=== PATIENT | male | born 1960 | race Caucasian/White ===

== ENCOUNTER → 2017-07-29 | Outpatient (CLI) | payer OTHER ==
[2017-07-29 16:38] LABS: BASO % 0.2 %; BASO ABS # 0.02 K/uL (0-0.2); COMPLETE YES; EOS % 2.2 %; HEMATOCRIT 43.3 % (42-52); IG% 0.2 %; LYMPH % 35.7 %; LYMPH ABS # 3.37 K/uL (1.2-3.4); MEAN CELL VOLUME 91.2 fL (80-100); MEAN CORPUSCULAR HEMOGLOBIN 31.8 pg (25-34); MEAN CORPUSCULAR HGB CONC 34.9 g/dl (32-36); MEAN PLATELET VOLUME 9.1 fL (7.4-10.4); MONO % 7.1 %; NEUT % 54.6 %; PLATELET COUNT 307 K/uL (130-400); RED BLOOD COUNT 4.75 M/uL (4.7-6.1); WHITE BLOOD COUNT 9.45 K/uL (4.8-10.8)
[2017-07-29 16:59] LABS: ALT/SGPT 18 U/L (12-78); AST/SGOT 15 U/L (15-37); BLOOD UREA NITROGEN 18 mg/dl (7-18); BUN/CREATININE RATIO 12.5 (10-20); CALCIUM 9.2 mg/dl (8.5-10.1); CARBON DIOXIDE 25 mmol/L (21-32); CHLORIDE 107 mmol/L (98-107); CREATININE 1.45 mg/dl (0.60-1.40); GLUCOSE 77 mg/dl (70-99); POTASSIUM 3.7 mmol/L (3.5-5.1); SODIUM 140 mmol/L (136-145)
[2017-07-29 17:08] LABS: ALB/GLOB RATIO 1.3 (0.9-2); ALKALINE PHOSPHATASE 68 U/L (45-117); CHOLESTEROL 190 mg/dl (0-200); CHOLESTEROL/HDL RATIO 3.5; HDL CHOLESTEROL 54 mg/dl; LDL CHOLESTEROL CALCULATED 120 mg/dl; TRIGLYCERIDES 80 mg/dl (0-150); VERY LOW DENSITY LIPOPROT CALC 16 mg/dl
[2017-07-31 12:14] LABS: THYROGLOBULIN <0.1 NG/ML (2.8-40.9)
== END | disposition home or self-care (01) ==
LOC: C.LAB1850 15:51
PROVIDERS: ATTEND Nurse Practitioner Family
DX: Z85.850 Personal history of malignant neoplasm of thyroid (principal); R22.1 Localized swelling, mass and lump, neck; E89.0 Postprocedural hypothyroidism; Z13.220 Encounter for screening for lipoid disorders; Z13.1 Encounter for screening for diabetes mellitus

== ENCOUNTER → 2017-08-05 | Outpatient (CLI) | payer OTHER ==
--- NOTE | 2017-08-05 16:14 | DIAGNOSTIC IMAGING REPORT ---
SOFT TISS HEAD/NECK-THYROID CLINICAL HISTORY: [id number] diabetes. Thyroid carcinoma COMPARISON STUDY: 09/13/2015 FINDINGS: The patient is status post a prior thyroidectomy. No residual or recurrent thyroid tissue is visualized. Within the right neck, 22 x 10 x 5 mm lymph node was visualized. Within the left neck a 12 x 8 x 7 mm lymph node was visualized. These nodes are not pathologic by size criteria. IMPRESSION: 1. Surgically absent thyroid gland. Electronically signed by: Cruz Baron M.D. 08/05/2017 4:13 PM Dictated Date/Time: 08/05/2017 4:11 PM
== END | disposition home or self-care (01) ==
LOC: C.ULTR 15:37
PROVIDERS: ATTEND Nurse Practitioner Family
DX: E89.0 Postprocedural hypothyroidism (principal); R22.1 Localized swelling, mass and lump, neck; Z85.850 Personal history of malignant neoplasm of thyroid; Z13.1 Encounter for screening for diabetes mellitus; Z13.220 Encounter for screening for lipoid disorders; Z98.890 Other specified postprocedural states

== ENCOUNTER 2022-01-04 10:38 | Inpatient (IN) ==
[2022-01-04] MEDS ORDERED: SODIUM CHLORIDE 0.9% 1000ML 1,000 ML IV ONE (11:16)
[2022-01-04] MEDS ORDERED: ALBUT/IPRATROP 3MG/0.5MG NEB 3 ML VIAL NEB STA (11:16)
[2022-01-04] MEDS ORDERED: ACETAMINOPHEN 1,000 MG/100 ML VIAL IV STA (11:16)
[2022-01-04 11:29] LABS: Basophils # (auto) 0.02 K/uL (0-0.2); Basophils % (auto) 0.1 %; Eosinophils # (auto) 0.04 K/uL (0-0.5); Eosinophils % (auto) 0.3 %; Hematocrit (blood only) 33.9 % (42-52); Hemoglobin 11.3 g/dL (14.0-18.0); Immature Granulocytes # (auto) 0.04 K/uL (0.00-0.02); Immature Granulocytes % (auto) 0.3 %; Lymphocytes % (auto) 6.7 %; Mean Corpuscular Hemoglobin 30.5 pg (25-34); Mean Corpuscular Hgb Conc 33.3 g/dL (32-36); Mean Corpuscular Volume 91.4 fL (80-100); Mean Platelet Volume 8.7 fL (7.4-10.4); Monocytes # (auto) 1.42 K/uL (0.11-0.59); Monocytes % (auto) 10.5 %; Neutrophils # (auto) 11.07 K/uL (1.4-6.5); Neutrophils % (auto) 82.1 %; Platelet Count 483 K/uL (130-400); RDW Standard Deviation 43.6 fL (36.4-46.3); Red Blood Count 3.71 M/uL (4.7-6.1); White Blood Count 13.49 K/uL (4.8-10.8)
[2022-01-04 11:48] LABS: Albumin Level 3.3 gm/dl (3.4-5.0); BUN Creatinine Ratio 24.6 (10-20); Bilirubin,Total 0.6 mg/dl (0.2-1.0); Calcium 9.5 mg/dl (8.5-10.1); Creatinine Clr Calc Pharmacy 22.3 ml/min; Est GFR (African American) 22.5 ml/min; Est GFR (Non-African American) 19.5 ml/min; Globulin 3.3 gm/dl (2.5-4.0); Magnesium 2.3 mg/dl (1.7-2.4); Phosphorus 5.4 mg/dl (2.5-4.9); Total Protein 6.6 gm/dl (6.0-8.3)
--- NOTE | 2022-01-04 11:51 | Emergency Department Note ---
Impression & Plan Lung cancer, Metastatic disease, Hypoxia, Elevated troponin ED Provider Note NAME: ARTEMIO HANNON AGE: 61 SEX: M ARRIVES VIA: Ambulance INFORMANT: Patient ED PROVIDER(S): Sorin Pickard MD CHIEF COMPLAINT: SOB PLAN: Disposition: Admit MEDICAL DECISION MAKING: The patient is a pleasant 61-year-old gentleman with a past medical history of metastatic lung cancer/Pancoast tumor who presents to the emergency department for evaluation of persistent worsening shortness of breath despite being seen at [facility] and having thoracentesis with 1.7L removed this past week. Patient reports he has yet to initiate any treatment. He follows with [facility] oncology. Denies any fevers, new cough, vomiting, diarrhea or urinary symptoms. The patient reports he has had weakness of his right upper extremity that has progressed rapidly over the past several months and his providers are aware of this. On arrival the patient is acute on chronically ill-appearing but no acute distress, afebrile with stable vital signs. His O2 saturation was 88% on room air and placed on 2 L nasal cannula. He appears clinically dry. He has diminished breath sounds of the right lung woo. EKG without overt acute ischemia. Chest x-ray with question of pneumonia however better characterized on CT likely reflecting metastatic disease. WBC 13.4K nonspecific. H/H 11.3/33.3 approximate the decreased from prior. Platelets 480K, nonspecific. Chemistry with bicarb of 20. Creatinine 3.25 increased from patient's baseline of 2. BUN/creatinine> 20 consistent with patient's clinically dry appearance. Troponin is 0.14, acute. BNP is within normal limits. Lipase is not significantly elevated. Procalcitonin is only mildly elevated at 0.87 in the setting of CKD. Covid-19 RNA, NAAT negative. CT of the chest was performed without contrast and demonstrates the patient's extensive metastatic disease including diffuse solid and groundglass nodules as well as right perihilar mass with obstructive junction of adjacent bronchi. Note is made of suspected large metastatic deposit within the medial aspect of the right proximal humerus correlating the patient's right upper extremity weakness. Upon reevaluation the patient did report some improvement after IV fluid hydration and DuoNeb. The patient does agree with plan for admission. Case was discussed with Dr. Sauceda, [facility] hospitalist who will evaluate the patient for admission. Triage Nursing notes reviewed and agree them. Prior medical records reviewed Vital Signs: reviewed and remarkable for hypoxia. Differential diagnosis: Reactive airway disease, pneumonia, pneumothorax, COPD, CHF, infections, cardiac ischemia, pulmonary embolism, musculoskeletal, gastrointestinal, as well as ot her pathologies. ER treatment provided: See below. Diagnostics interpreted by me: ECG: Normal sinus rhythm, 95 bpm, no ectopy, no overt ST elevation or depression, QTC 404, QRS 88. Cardiac Monitoring: An order for continuous cardiac monitoring was placed and demonstrated Normal sinus rhythm, 95 bpm, no ectopy. Laboratory studies: See below Imaging studies: See below Consultation(s): Dr. Sauceda, [facility] hospitalist HPI: The patient is a pleasant 61-year-old gentleman with a past medical history of metastatic lung cancer/Pancoast tumor who presents to the emergency department for evaluation of persistent worsening shortness of breath despite being seen at [facility] and having thoracentesis with 1.7L removed this past week. Patient reports he has yet to initiate any treatment. He follows with [facility] oncology. Denies any fevers, new cough, vomiting, diarrhea or urinary symptoms. The patient reports he has had weakness of his right upper extremity that has progressed rapidly over the past several months and his providers are aware of this. ROS: See above HPI for pertinent positives & negatives. A total of 10 systems reviewed and were otherwise negative. VITALS:See Below PHYSICAL EXAMINATION: GENERAL: Awake, alert, acute on chronically ill-appearing, in no distress HENT: Normocephalic, atraumatic. Oropharynx with dry mucous membranes and otherwise unremarkable. EYES: Normal conjunctiva. Sclera non-icteric. NECK: Supple. No nuchal rigidity. FROM. No JVD. RESPIRATORY: Diminished breath sounds of right lung woo. CARDIAC: Regular rate, normal rhythm. Extremities warm and well perfused. Pulses equal. ABDOMEN: Soft, non-distended. No tenderness to palpation. No rebound or guardin g. No masses. RECTAL: Deferred. MUSCULOSKELETAL: Chest examination reveals no tenderness. The back is symmetrical on inspection without obvious abnormality. There is no CVA tenderness to palpation. No joint edema. LOWER EXTREMITIES: Calves are equal size bilaterally and non-tender. No edema. No discoloration. NEURO: Chronic RUE weakness. Otherwise no new focal neurologic deficitis. SKIN: No rash or jaundice noted. ED COURSE: Critical Care: I have personally spent greater than 35 minutes of critical care time in the direct management of this patient. This includes bedside care, interpretation of diagnostic studies, and testing, discussion with consultants, patient, and family members, and other required patient management activities. This 35 minutes is in excess of all separately billable procedures. Sorin Pickard MD Past Med/Surg History Medical History Anxiety Depression Lung cancer Medical marijuana use Osteoarthritis Secondary hyperparathyroidism Stage 3b chronic kidney disease Thyroid cancer Vitamin D deficiency Surgical History H/O arthroscopic knee surgery right knee H/O lymph node biopsy History of colonoscopy History of esophagogastroduodenoscopy (EGD) S/P removal of thyroid nodule S/P thyroidectomy Family History Other No family history of adverse response to anesthesia Social History Smoking Status: Former smoker Tobacco Type: Cigarettes Second Hand Exposure: Yes; Hx Alcohol Use: No (hx) Hx Substance Use: Yes (medical marijuana) Last Used Substance: Unknown Last Used Substance Other:: daily vape Preferred Language: Egyptian Communication Ability: Effective 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 Beliefs That Will Affect Care: None Current Living Situation: Alone Feels Safe at Home: Yes Assistive Devices: Glasses and Oxygen - Continuous Allergies Allergies Allergy/AdvReac Type Severity Reaction Status Date / Time No Known Drug Allergies AdvReac Verified 01/04/22 12:55 Home Meds Home Medications Medication Instructions Recorded Confirmed Medical Thc 1 dose INHALATION DAILY 04/15/21 01/04/22 diclofenac sodium 1 % topical gel 2 g TOPICAL DAILY PRN 01/04/22 01/04/22 hydrocodone 5 mg-acetaminophen 300 2 tab PO TID PRN 01/04/22 01/04/22 mg tablet levothyroxine 150 mcg tablet 150 mcg PO [id number] 01/04/22 01/04/22 (Synthroid) Previous Rx's Medication Instructions Recorded lisinopril 5 mg tablet 5 mg PO QAM #90 tab 06/23/21 Results & Data (ED) Vital Signs Vital Signs - 24 hr 01/04/22 10:45 01/04/22 11:00 01/04/22 12:20 Temperature 36.6 C Temperature Source Oral Pulse Rate 95 H 88 Pulse Rate from SpO2 Sensor Pulse Rhythm Regular Pulse Strength Normal Respiratory Rate 18 Respiratory Effort / Characteristics Non-Labored Respiratory Depth Normal Respiratory Pattern Regular Blood Pressure 102/71 97/60 L Blood Pressure Mean 81 72 Blood Pressure Position Semi-fowlers Pulse Oximetry 88 L 94 95 Oxygen Delivery Method Room Air Nasal Cannula Nasal Cannula Oxygen Flow Rate 0 2 Sepsis Recent Fever Within 48 Hours No Sepsis New/Unexplained Change in Mental Status N/A Sepsis Action Taken by Nursing No Action Required Oxygen Flow Rate - Titration 2 Pulse Oximetry Post Tiitration 92 01/04/22 12:23 01/04/22 12:30 01/04/22 12:31 Temperature Temperature Source Pulse Rate 88 88 88 Pulse Rate from SpO2 Sensor 89 88 91 H Pulse Rhythm Pulse Strength Respiratory Rate 8 L 17 19 Respiratory Effort / Characteristics Respiratory Depth Respiratory Pattern Blood Pressure 97/60 L 111/63 Blood Pressure Mean 72 79 Blood Pressure Position Pulse Oximetry 95 94 94 Oxygen Delivery Method Oxygen Flow Rate Sepsis Recent Fever Within 48 Hours Sepsis New/Unexplained Change in Mental Status Sepsis Action Taken by Nursing Oxygen Flow Rate - Titration Pulse Oximetry Post Tiitration 01/04/22 13:00 01/04/22 13:15 01/04/22 13:30 Temperature Temperature Source Pulse Rate 84 87 85 Pulse Rate from SpO2 Sensor 84 86 85 Pulse Rhythm Pulse Strength Respiratory Rate 14 18 25 H Respiratory Effort / Characteristics Respiratory Depth Respiratory Pattern Blood Pressure 95/67 L 82/60 L Blood Pressure Mean 76 67 Blood Pressure Position Pulse Oximetry 96 95 93 Oxygen Delivery Method Nasal Cannula Oxygen Flow Rate 2 Sepsis Recent Fever Within 48 Hours Sepsis New/Unexplained Change in Mental Status Sepsis Action Taken by Nursing Oxygen Flow Rate - Titration Pulse Oximetry Post Tiitration 01/04/22 13:45 01/04/22 14:00 Temperature Temperature Source Pulse Rate 85 92 H Pulse Rate from SpO2 Sensor 85 92 H Pulse Rhythm Pulse Strength Respiratory Rate 23 22 Respiratory Effort / Characteristics Respiratory Depth Respiratory Pattern Blood Pressure 95/61 L Blood Pressure Mean 72 Blood Pressure Position Pulse Oximetry 95 94 Oxygen Delivery Method Nasal Cannula Oxygen Flow Rate 2 Sepsis Recent Fever Within 48 Hours Sepsis New/Unexplained Change in Mental Status Sepsis Action Taken by Nursing Oxygen Flow Rate - Titration Pulse Oximetry Post Tiitration Laboratory Data Attestation: I reviewed the patient's lab results. Result diagrams: 01/04/22 11:07 01/04/22 11:07 Lab Results 01/04/22 01/04/22 01/04/22 Range/Units 11:07 11:07 11:07 WBC 13.49 H (4.8-10.8) K/uL RBC 3.71 L (4.7-6.1) M/uL Hgb 11.3 L (14.0-18.0) g/dL Hct 33.9 L (42-52) % MCV 91.4 (80-100) fL MCH 30.5 (25-34) pg MCHC 33.3 (32-36) g/dL RDW Std Deviation 43.6 (36.4-46.3) fL RDW Coeff of Malika 13.0 (11.5-14.5) % Plt Count 483 H (130-400) K/uL MPV 8.7 (7.4-10.4) fL Immature Gran % (Auto) 0.3 % Neut % (Auto) 82.1 % Lymph % (Auto) 6.7 % Dane % (Auto) 10.5 % Eos % (Auto) 0.3 % Baso % (Auto) 0.1 % Neut # (Auto) 11.07 H (1.4-6.5) K/uL Lymph # (Auto) 0.90 L (1.2-3.4) K/uL Dane # (Auto) 1.42 H (0.11-0.59) K/uL Eos # (Auto) 0.04 (0-0.5) K/uL Baso # (Auto) 0.02 (0-0.2) K/uL Immature Gran # (Auto) 0.04 H (0.00-0.02) K/uL Sodium 132 L (136-145) mmol/L Potassium 5.0 (3.5-5.1) mmol/L Chloride 101 (98-107) mmol/L Carbon Dioxide 20 L (21-32) mmol/L Anion Gap 11 (3-11) BUN 80 H (6-23) mg/dl Creatinine 3.25 H (0.6-1.4) mg/dl Est Cr Clr Drug Dosing 22.3 ml/min Est GFR ( Amer) 22.5 ml/min Est GFR (Non-Af Amer) 19.5 ml/min BUN/Creatinine Ratio 24.6 H (10-20) Glucose 109 H (70-99(Fasting)) mg/dl Calcium 9.5 (8.5-10.1) mg/dl Phosphorus 5.4 H (2.5-4.9) mg/dl Magnesium 2.3 (1.7-2.4) mg/dl Total Bilirubin 0.6 (0.2-1.0) mg/dl AST 25 (13-39) U/L ALT 23 (7-52) U/L Alkaline Phosphatase 99 (34-104) U/L Troponin I 0.14 H* (0-0.04) ng/ml B-Natriuretic Peptide (0-100) pg/ml Total Protein 6.6 (6.0-8.3) gm/dl Albumin 3.3 L (3.4-5.0) gm/dl Globulin 3.3 (2.5-4.0) gm/dl Albumin/Globulin Ratio 1.0 (0.9-2) Lipase 84 H (11-82) U/L Procalcitonin 0.87 H (0-0.5) ng/ml SARS-CoV-2, RNA, NAAT (NEGATIVE) 01/04/22 01/04/22 Range/Units 11:55 12:26 WBC (4.8-10.8) K/uL RBC (4.7-6.1) M/uL Hgb (14.0-18.0) g/dL Hct (42-52) % MCV (80-100) fL MCH (25-34) pg MCHC (32-36) g/dL RDW Std Deviation (36.4-46.3) fL RDW Coeff of Malika (11.5-14.5) % Plt Count (130-400) K/uL MPV (7.4-10.4) fL Immature Gran % (Auto) % Neut % (Auto) % Lymph % (Auto) % Dane % (Auto) % Eos % (Auto) % Baso % (Auto) % Neut # (Auto) (1.4-6.5) K/uL Lymph # (Auto) (1.2-3.4) K/uL Dane # (Auto) (0.11-0.59) K/uL Eos # (Auto) (0-0.5) K/uL Baso # (Auto) (0-0.2) K/uL Immature Gran # (Auto) (0.00-0.02) K/uL Sodium (136-145) mmol/L Potassium (3.5-5.1) mmol/L Chloride (98-107) mmol/L Carbon Dioxide (21-32) mmol/L Anion Gap (3-11) BUN (6-23) mg/dl Creatinine (0.6-1.4) mg/dl Est Cr Clr Drug Dosing ml/min Est GFR ( Amer) ml/min Est GFR (Non-Af Amer) ml/min BUN/Creatinine Ratio (10-20) Glucose (70-99(Fasting)) mg/dl Calcium (8.5-10.1) mg/dl Phosphorus (2.5-4.9) mg/dl Magnesium (1.7-2.4) mg/dl Total Bilirubin (0.2-1.0) mg/dl AST (13-39) U/L ALT (7-52) U/L Alkaline Phosphatase (34-104) U/L Troponin I (0-0.04) ng/ml B-Natriuretic Peptide 30 (0-100) pg/ml Total Protein (6.0-8.3) gm/dl Albumin (3.4-5.0) gm/dl Globulin (2.5-4.0) gm/dl Albumin/Globulin Ratio (0.9-2) Lipase (11-82) U/L Procalcitonin (0-0.5) ng/ml SARS-CoV-2, RNA, NAAT NEGATIVE (NEGATIVE) Administered Medications Heparin Sodium (Porcine) (Heparin Sod 5,000 Unit/0.5 Ml Vial) 5,000 units SQ Q12 BRVAO Stop: 02/03/22 20:59 Last Admin: 01/04/22 21:53 Dose: 5,000 units Documented by: [id number] Hydromorphone HCl (Hydromorphone Inj 0.5 Mg/0.5 Ml Syr) 0.25 mg IV Q6H PRN PRN Reason: Severe Pain Stop: 01/18/22 16:05 Last Admin: 01/04/22 18:17 Dose: 0.25 mg Documented by: [id number] Lactated Ringer's (Lr) 1,000 mls @ 125 mls/hr IV .Q8H BRAVO Stop: 01/05/22 08:05 Last Admin: 01/04/22 18:17 Dose: 125 mls/hr Documented by: [id number] Discontinued Medications Albuterol (Albut/Ipratrop 3mg/0.5mg Neb 3 Ml Vial) 3 ml NEB NOW STA; Protocol Stop: 01/04/22 11:17 Last Admin: 01/04/22 11:50 Dose: 3 ml Documented by: [id number] Sodium Chloride (Nss 1000ml) 1,000 mls @ 999 mls/hr IV .Q1H1M ONE Stop: 01/04/22 12:16 Last Infusion: 01/04/22 13:07 Dose: 0 mls/hr Documented by: [id number] Admin: 01/04/22 11:55 Dose: 999 mls/hr Documented by: [id number] Acetaminophen (Ofirmev) 1,000 mg in 100 mls @ 400 mls/hr IV NOW STA Stop: 01/04/22 11:30 Last Infusion: 01/04/22 12:18 Dose: 0 mls/hr Documented by: [id number] Admin: 01/04/22 11:55 Dose: 400 mls/hr Documented by: [id number] Azithromycin 500 mg/ Dextrose 255 mls @ 127.5 mls/hr IV NOW STA Stop: 01/04/22 17:31 Last Infusion: 01/04/22 18:38 Dose: 0 mls/hr Documented by: [id number] Admin: 01/04/22 16:24 Dose: 127.5 mls/hr Documented by: [id number] Ceftriaxone Sodium 1,000 mg/ (Dextrose) 50 mls @ 100 mls/hr IV Q24H ONE; Protocol Stop: 01/04/22 16:14 Last Infusion: 01/04/22 17:01 Dose: 0 mls/hr Documented by: [id number] Admin: 01/04/22 16:24 Dose: 100 mls/hr Documented by: [id number] Morphine Sulfate (Morphine Sulfate 4 Mg/Ml 1 Ml Carp\Vial) 4 mg IV NOW STA Stop: 01/04/22 13:27 Last Admin: 01/04/22 14:16 Dose: 4 mg Documented by: [id number] Imaging Data Radiologist's Impression: Chest X-Ray 01/04/22 11:00 XR chest 1V portable CLINICAL HISTORY: Chest Pain TECHNIQUE: Single frontal radiograph of the chest was obtained. Comparison: Comparison is made to chest 2 views 01/22/2011 FINDINGS: No lines and tubes are seen. Partially obscured. Diffuse right airspace opacities are seen. Multifocal airspace opacities are also seen on the left, somewhat less prominent. Prominence of the pulmonary vasculature is noted. Small right pleural effusion is noted. IMPRESSION: 1. Extensive right greater than left airspace opacities are seen. Small right pleural effusion. Findings are favored to represent pneumonia. 2. Mild pulmonary edema. ACT 112: Negative or not required by law. Electronically signed by: Vahe Gooden M.D. 01/04/2022 11:[address] 01/04/22 11:57 CT chest diagnostic wo con CLINICAL HISTORY: metastatic lung ca, sob TECHNIQUE: Multidetector row helical CT of the chest was performed. Coronal and sagittal reformations were obtained. Automated dose lowering techniques and/or adjustment according to patient size were utilized for this exam. Comparison: Comparison is made to chest radiograph 01/04/2022 FINDINGS: Lungs and pleura: There is a small right pleural effusion. Diffuse solid and groundglass nodules are seen, right greater than left. In addition, there is perihilar mass lesion obstructing multiple bronchi. There is a 4.5 mm nodule in the right upper lobe with apparent necrotic center. Irregular thickening of the interlobular septa are seen in the right lung. Heart and pericardium: Heart size is normal. No pericardial effusion. Vessels: Unremarkable. Mediastinum and van: Multiple enlarged mediastinal nodes are seen. An aortopulmonary window node measures 10 mm in diameter. Multiple enlarged mediastinal nodes measure up to 17 mm in diameter. Evaluation for hilar lymphadenopathy is limited by noncontrast technique. Chest wall and lower neck: A left subclavian node measures 22 mm in diameter. Multiple enlarged right axillary nodes are seen measuring up to 11 mm. Partially noted is irregular thickening in the soft tissues medial to the humerus. This may represent atypical appearance of the musculature or large soft tissue metastatic deposit. Abdomen: Unremarkable. Bones: Unremarkable. IMPRESSION: Findings are concerning for malignancy, likely primary in the right lung with pleural and lymphangitic spread. Likely malignant right pleural effusion with associated pleural thickening. Multiple left nodular densities are also likely to represent metastases. Prominent lymph nodes are seen in the mediastinum, right axilla, and right subclavian stations. Possible large metastatic deposit in the medial aspect of the right proximal humerus. ACT 112: Negative or not required by law. Electronically signed by: Vahe Gooden M.D. 01/04/2022 12:41 PM Discharge Plan Visit Data Chief Complaint: Shortness of Breath/Dyspnea ED Provider: Sorin Pickard Discharge Problem: Lung cancer, Metastatic disease, Hypoxia, Elevated troponin Patient Disposition: Admitted As Inpatient Discharge Instructions Interventions: ED Discharge Assessment Last Done: 01/04/22 15:09 Discharge Problem: Lung cancer Qualifiers: Laterality: unspecified laterality Lung location: unspecified part of lung Qualified Code(s): C34.90 - Malignant neoplasm of unspecified part of unspecified bronchus or lung Metastatic disease Qualifiers: Area of secondary neoplastic involvement: bone Qualified Code(s): C79.51 - Secondary malignant neoplasm of bone
[2022-01-04 11:57] LABS: Troponin I 0.14 ng/ml (0-0.04)
--- NOTE | 2022-01-04 12:43 | CT Scan Report ---
CT chest diagnostic wo con CLINICAL HISTORY: metastatic lung ca, sob TECHNIQUE: Multidetector row helical CT of the chest was performed. Coronal and sagittal reformations were obtained. Automated dose lowering techniques and/or adjustment according to patient size were u tilized for this exam. Comparison: Comparison is made to chest radiograph 01/04/2022 FINDINGS: Lungs and pleura: There is a small right pleural effusion. Diffuse solid and groundglass nodules are seen, right greater than left. In addition, there is perihilar mass lesion obstructing multiple bronc hi. There is a 4.5 mm nodule in the right upper lobe with apparent necrotic center. Irregular thicken ing of the interlobular septa are seen in the right lung. Heart and pericardium: Heart size is normal. No pericardial effusion. Vessels: Unremarkable. Mediastinum and van: Multiple enlarged mediastinal nodes are seen. An aortopulmonary window node danyell sures 10 mm in diameter. Multiple enlarged mediastinal nodes measure up to 17 mm in diameter. Evaluat ion for hilar lymphadenopathy is limited by noncontrast technique. Chest wall and lower neck: A left subclavian node measures 22 mm in diameter. Multiple enlarged right axillary nodes are seen measuring up to 11 mm. Partially noted is irregular thickening in the soft t issues medial to the humerus. This may represent atypical appearance of the musculature or large soft tissue metastatic deposit. Abdomen: Unremarkable. Bones: Unremarkable. IMPRESSION: Findings are concerning for malignancy, likely primary in the right lung with pleural and lymphangiti c spread. Likely malignant right pleural effusion with associated pleural thickening. Multiple left n odular densities are also likely to represent metastases. Prominent lymph nodes are seen in the media stinum, right axilla, and right subclavian stations. Possible large metastatic deposit in the medial aspect of the right proximal humerus. ACT 112: Negative or not required by law. Electronically signed by: Vahe Gooden M.D. 01/04/2022 12:41 PM
[2022-01-04] MEDS ORDERED: MoRPHine SULFATE 4 MG/ML 1 ML CARP\\VIAL IV STA (13:26)
--- NOTE | 2022-01-04 14:22 | History & Physical Report ---
Date of Service January 04, 2022 Assessment & Plan (1) Lung cancer: Plan: Poorly differentiated carcinoma; believe it is lung primary. Discussed with Dr. Chao. - Brain MRI - Right brachial plexus MRI - Pulm consult for thoracentesis and/or Pleur-X - Palliative care consult given oncologist felt this was a very aggressive tumor - Pain control for right and central chest wall pain - Will treat with abx for now given leukocytosis and procalcitonin. Will get stat MRSA swab as well. (2) Right arm weakness: Plan: Presumed to be from malignant invasion of nerves. - MRIs as above - PT/OT (3) Acute renal failure: Plan: Baseline Cr. ~ 1.5 - 2.0 (most recently 2.0 at [facility] oncology visit). Now 3.25. - IV fluids - Bladder scans to check for retention - Nephrology consulted (4) Thyroid cancer: Plan: Hx of. No recent TSH. - Continue home levothyroxine - Will check TSH (5) DVT prophylaxis: Plan: Heparin 5,000 units SQ BID -> Will get LE Dopplers to make sure no DVT. Will monitor closely and get MRI brain to ensure no brain mets. Did discuss with Dr. Chao who felt VTE ppx was indicated. Discussed code status with patient - Would not want CPR or cardioversion. If heart stops, he would want to be let to pass away. However, was amenable to intubation and ventilator for a few days if we thought he could return to some quality of life. Discussed with [id number] present. History of Present Illness Primary Care Provider: Kris Somers MD 61yo M w/ hx of poorly differentiated carcinoma who presents with right arm weakness, chest pain, and shortness of breath. The patient was first diagnosed with cancer in 10/2021 when he started to have right shoulder pain. This was found to be due to tumor involvement in the right brachial plexus/axillary area. Biopsy showed a poorly differentiated carcinoma which is thought to be a lung primary. He has been working up issues with his oncologist, but came in to the ER today for worsening weakness of his right arm and worsening chest pain and shortness of breath. He had a thoracentesis of his right pleural effusion 4 days ago, and his [id number] reports that 1.7L was removed. He reports he has not had much to eat in the last 3-4 days. He has had an unsteady gait more recently. He reports central and right-sided chest pain. He also notes some constipation. He denies any fevers/chills/sweats. He denies nausea/vomiting. Denies any changes in urination (reports going every few hours and that it remains yellow). Allergies Allergy/AdvReac Type Severity Reaction Status Date / Time No Known Drug Allergies AdvReac Verified 01/04/22 12:55 Home Medications Medication Instructions Recorded Confirmed Type Medical Thc 1 dose INHALATION DAILY 04/15/21 01/04/22 History lisinopril 5 mg tablet 5 mg PO QAM #90 tab 06/23/21 01/04/22 Rx diclofenac sodium 1 % topical gel 2 g TOPICAL DAILY PRN 01/04/22 01/04/22 History hydrocodone 5 mg-acetaminophen 300 2 tab PO TID PRN 01/04/22 01/04/22 History mg tablet levothyroxine 150 mcg tablet 150 mcg PO [id number] 01/04/22 01/04/22 History (Synthroid) Past Med/Surg History Medical History Anxiety Depression Lung cancer Medical marijuana use Osteoarthritis Secondary hyperparathyroidism Stage 3b chronic kidney disease Thyroid cancer Vitamin D deficiency Surgical History H/O arthroscopic knee surgery right knee H/O lymph node biopsy History of colonoscopy History of esophagogastroduodenoscopy (EGD) S/P removal of thyroid nodule S/P thyroidectomy Family History Other No family history of adverse response to anesthesia Social History Smoking Status: Former smoker Tobacco Type: Cigarettes Second Hand Exposure: No; Hx Alcohol Use: No (hx) Hx Substance Use: Yes (medical marijuana) Last Used Substance Other:: daily vape Preferred Language: Kazakh Communication Ability: Effective 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 Beliefs That Will Affect Care: None Current Living Situation: Alone Feels Safe at Home: Yes Assistive Devices: Glasses Review of Systems Review of Systems: All systems reviewed & are unremarkable except as noted in HPI & below Physical Exam Constitutional: WD/WN, vitals as above Eyes: EOM intact bilaterally; no conjunctival abnormality ENMT: external ear and nose normal, oropharynx normal Neck: trachea midline, no thyromegaly normal visual inspection Respiratory: normal respiratory effort, lungs clear to auscultation no respiratory distress Cardiovascular: RRR, no murmur, no edema Gastrointestinal (Abdomen): Inspection/Auscultation: abdomen normal to inspection; abdomen not distended Musculoskeletal: Extremities: + abnormal strength (Right arm with 0/5 strength) Skin: no rashes, warm and dry Neurologic: awake; + does not move all extremities Motor/Sensory: + sensory deficit (No sensation in the right arm) Psychiatric: Orientation: alert, oriented to person and cooperative Results & Data Results & Data ([facility]) Vital Signs (Past 12 Hours) Vital Signs Temp Pulse Resp BP Pulse Ox 01/04/22 13:15 87 18 95/67 L 95 01/04/22 13:00 84 14 96 01/04/22 12:31 88 19 111/63 94 01/04/22 12:30 88 17 94 01/04/22 12:23 88 8 L 97/60 L 95 01/04/22 12:20 88 97/60 L 95 01/04/22 11:00 94 01/04/22 10:45 36.6 C 95 H 18 102/71 88 L Code Status & VTE Plan VTE Prophylaxis Plan VTE Prophylaxis will be ordered: Yes PG Care Time/CCT Total # of Minutes Spent Total Time Spent with Patient: Total time spent is greater than 50% in coordination of care (as documented) at patient's floor/unit and/or counseling patient: Coding Level of Care Code 18753 Initial Inpt Care Lvl 3 Diagnoses Lung cancer C34.90 Right arm weakness R29.898 Acute renal failure N17.9 Thyroid cancer C73 DVT prophylaxis Z29.9
[2022-01-04] MEDS ORDERED: AZITHROMYCIN 500 MG in DEXTROSE 5% 250 ML IV STA (15:32)
[2022-01-04] MEDS ORDERED: cefTRIAXone SODIUM 1,000 MG in DEXTROSE 5% 50 ML IV ONE (15:45)
[2022-01-04] MEDS ORDERED: oxyCODONE HCL IR 5 MG TAB (IMMEDIATE RELEASE) PO PRN (16:06)
[2022-01-04] MEDS ORDERED: HYDROmorphone INJ 0.5 MG/0.5 ML SYR IV PRN (16:06)
[2022-01-04] MEDS ORDERED: ACETAMINOPHEN 325 MG TAB PO PRN (16:06)
[2022-01-04] MEDS ORDERED: ONDANSETRON INJ 2 MG/ML 2 ML VIAL IV PRN (16:06)
[2022-01-04] MEDS: LACTATED RINGER'S 1,000 ML IV SCH (18:17)
--- NOTE | 2022-01-04 18:46 | Ultrasound Report ---
US venous doppler LE BI CLINICAL HISTORY: Cancer, concern for VTE TECHNIQUE: Bilateral lower extremity real-time compression venous ultrasound with Color Doppler imagi ng. Utilizing real-time ultrasonic imaging multiple real time high-resolution ultrasonic images with compression and noncompression maneuvers of the deep venous system in addition to color doppler imagi ng were performed from the common femoral vein through the proximal calf veins. COMPARISON: None available at the time of this dictation. FINDINGS: Currently there is normal compressibility of the deep venous system from the common femoral vein thro ugh the proximal calf veins. No current evidence of acute thrombosis is identified. Impression: No evidence of deep venous thrombus. ACT 112: Negative or not required by law. Electronically signed by: Vahe Gooden M.D. 01/04/2022 6:45 PM
--- NOTE | 2022-01-04 18:50 | Ultrasound Report ---
US renal/blad retro comp CLINICAL HISTORY: ZEINA TECHNIQUE: Multiple sonographic real-time images of the kidneys and bladder were obtained. COMPARISON: None available at the time of this dictation. FINDINGS: The right kidney measures 9.0 cm in length, and the left kidney measures 9.7 cm in length. The right kidney is normal in size, contour, cortical thickness, and echogenicity. No hydronephrosis is identified. No renal lesion is identified. No perinephric fluid collection is seen. The left kidney is normal in size, contour, cortical thickness and echogenicity. No hydronephrosis i s identified. No renal lesion is identified. No perinephric fluid collection is seen. The bladder is partially distended. No large intraluminal mass is seen. IMPRESSION: Unremarkable examination and in particular no evidence of hydronephrosis. ACT 112: Negative or not required by law. Electronically signed by: Vahe Gooden M.D. 01/04/2022 6:48 PM
[2022-01-04] MEDS ORDERED: LORazepam 0.5 MG TAB PO SCH (19:45)
[2022-01-04] MEDS: HEPARIN SOD 5,000 UNIT/0.5 ML VIAL SQ SCH (21:53)
[2022-01-04] MEDS: [UNRECOGNIZED DRUG - REMARK] SCH (23:58)
[2022-01-05] MEDS: LACTATED RINGER'S 1,000 ML IV SCH (03:37)
[2022-01-05 06:41] LABS: Basophils # (auto) 0.02 K/uL (0-0.2); Basophils % (auto) 0.2 %; Eosinophils # (auto) 0.14 K/uL (0-0.5); Eosinophils % (auto) 1.2 %; Hematocrit (blood only) 29.7 % (42-52); Immature Granulocytes # (auto) 0.07 K/uL (0.00-0.02); Immature Granulocytes % (auto) 0.6 %; Lymphocytes # (auto) 1.32 K/uL (1.2-3.4); Lymphocytes % (auto) 10.9 %; Mean Corpuscular Hemoglobin 30.7 pg (25-34); Mean Corpuscular Hgb Conc 33.7 g/dL (32-36); Mean Corpuscular Volume 91.1 fL (80-100); Mean Platelet Volume 8.9 fL (7.4-10.4); Monocytes # (auto) 1.36 K/uL (0.11-0.59); Monocytes % (auto) 11.3 %; Neutrophils # (auto) 9.17 K/uL (1.4-6.5); Neutrophils % (auto) 75.8 %; Platelet Count 474 K/uL (130-400); RDW Coefficient of Variation 13.2 % (11.5-14.5); RDW Standard Deviation 44.1 fL (36.4-46.3); Red Blood Count 3.26 M/uL (4.7-6.1); White Blood Count 12.08 K/uL (4.8-10.8)
--- NOTE | 2022-01-05 06:57 | Magnetic Resonance Report ---
MR brain wo con HISTORY: 61 years-old Male Right arm weakness acute strokelike symptoms COMPARISON: None TECHNIQUE: Multiplanar multisequence MR of the brain was obtained without the use of IV contrast. FINDINGS: The senior major gifts officer localizer images demonstrate no gross extracranial abnormality. The study is motion degrade d. The midline structures appear unremarkable. Partially empty sella. Numerous small foci of restrict ed diffusion are noted within the frontal and parietal lobes, notably involving the watershed distrib ution at the level of the centrum semiovale, largest area measuring 1.4 cm on image 18 of series 4. A dditional small scattered foci are noted within the temporal and occipital lobes and cerebellar hemis pheres. No acute intracranial hemorrhage, or territorial infarct. No midline shift, intra-axial mass or abnormal extra-axial collection. Mild scattered T2/FLAIR hyperintense foci are nonspecific however favor chronic microvascular ischemic disease. There are a few foci of blooming artifact on the T2 st ar series suggestive of chronic hemosiderin. The cerebral venous sinuses and major arterial flow voids appear patent. The skull, orbits and soft t issues are unremarkable. Trace mastoid effusions. 9 mm focus of polypoid mucosal thickening is noted within the left maxillary sinus. 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 A proximal thromboembolic source is considered. Correlation with echocard iogram recommended. ACT 112: Negative or not required by law. The above report was generated using voice recognition software. It may contain grammatical, syntax o r spelling errors. Electronically signed by: Tim Ryan M.D. 01/05/2022 6:55 AM
[2022-01-05 07:05] LABS: BUN Creatinine Ratio 29.4 (10-20); Calcium 9.3 mg/dl (8.5-10.1); Creatinine Clr Calc Pharmacy 33.9 ml/min; Est GFR (African American) 37.4 ml/min; Est GFR (Non-African American) 32.2 ml/min; Magnesium 2.2 mg/dl (1.7-2.4); Phosphorus 4.7 mg/dl (2.5-4.9); Potassium 5.1 mmol/L (3.5-5.1)
[2022-01-05 07:30] LABS: Thyroid Stimulating Hormone 18.281 uIu/ml (0.300-4.500)
[2022-01-05 08:03] LABS: T4 Free Thyroxine 0.98 ng/dl (0.61-1.60)
--- NOTE | 2022-01-05 08:37 | Pulmonary Consultation ---
Date of Consultation January 05, 2022 Assessment & Plan (1) Lung cancer: Laterality: unspecified laterality Lung location: unspecified part of lung Qualified Code(s): C34.90 - Malignant neoplasm of unspecified part of unspecified bronchus or lung (2) Pleural effusion, malignant: (3) Abnormal CT scan of lung: Impression: 61-year-old male with reported history of advanced lung cancer with malignant pleural effusion. We do not have his pathology reports, oncology notes, or outpatient pulmonary notes available to review in our system. He is admitted with shortness of breath and found to have reaccumulation of the pleural fluid. This appears to have reaccumulated fairly rapidly although I do not have his prior imaging results available to review. I discussed with the p atcatrachito and his deurel-it-poy at bedside options to include repeat therapeutic thoracentesis versus placement of an indwelling pleural catheter. They would like to proceed with Pleurx catheter placement which given his rapid reaccumulation and advancing disease seems appropriate. Recommendations: 1. Malignant pleural effusion: We will proceed with ultrasound-guided Pleurx catheter placement on the right. For completeness sake, we will repeat pleural fluid cytology and pleural fluid diagnostics. 2. Advanced lung cancer: Recommend obtaining records from outpatients oncology and pulmonary. 3. Continue oxygen titrated to keep saturations at or above 88%. 4. Patient has a fairly extensive disease but we have no comparison CT scans. Correlation with prior imaging may be beneficial. He has been initiated on antimicrobial therapy for possible pneumonia. Its difficult to ascertain what could be pneumonia and what may be metastatic disease on his CT scan. His procalcitonin was elevated and white count was elevated but he is afebrile. Seems reasonable to continue antimicrobials at this point time. 5. Agree with plans for palliative care. Overall life expectancy with malignant pleural effusion in the absence of therapy is typically less than 4 months. His overall prognosis would be dictated based on whether or not he had an actionable targeted mutation. I agree with plans for palliative care discussion and readdressing CODE STATUS. Management of the patient's other medical issues is deferred to the hospitalist service. Once the Pleurx catheter is placed, the patient will require coordination with home health care as he lives alone. Unclear if going home might be an option for the patient or not. He can be followed in the outpatient setting by his outpatient pulmonary provider at [facility]. History of Present Illness Attending Physician: Jluis Sauceda MD History of Present Illness Asked by hospitalist to evaluate this patient with lung malignancy and malignant effusion admitted with shortness of breath and abnormal CT scan. History is obtained from discussion with the patient, his [id number] at bedside, and reviewed electronic medical record. Patient is a 61-year-old male who is followed by Dr. Samuels in the outpatient pulmonary setting. Dr. Chao at [facility] oncology is his medical oncologist. He was diagnosed within the last month with metastatic lung cancer by his report. Per [id number], they are supposed to be starting immunotherapy today. He was sent to [facility] last week for thoracentesis. By report they took off over a liter. The patient believes that he may have had some intermittent improvement in his shortness of breath however the symptoms returned fairly rapidly. He came to the emergency room due to progressive right-sided weakness and chest pain and shortness of breath. CT scan confirmed reaccumulation of the right-sided pleural effusion with extensive thoracic metastatic disease. MRI of the brain demonstrated multiple infarcts without evidence of metastatic disease. Patient does not report fever chills or night sweats. He is not coughing or expectorating phlegm. Allergies Allergy/AdvReac Type Severity Reaction Status Date / Time No Known Drug Allergies AdvReac Verified 01/04/22 12:55 Home Medications Medication Instructions Recorded Confirmed Type Medical Thc 1 dose INHALATION DAILY 04/15/21 01/04/22 History lisinopril 5 mg tablet 5 mg PO QAM #90 tab 06/23/21 01/04/22 Rx diclofenac sodium 1 % topical gel 2 g TOPICAL DAILY PRN 01/04/22 01/04/22 History hydrocodone 5 mg-acetaminophen 300 2 tab PO TID PRN 01/04/22 01/04/22 History mg tablet levothyroxine 150 mcg tablet 150 mcg PO [id number] 01/04/22 01/04/22 History (Synthroid) Patient History Medical History Anxiety Depression Lung cancer Medical marijuana use Osteoarthritis Secondary hyperparathyroidism Stage 3b chronic kidney disease Thyroid cancer Vitamin D deficiency Surgical History H/O arthroscopic knee surgery right knee H/O lymph node biopsy History of colonoscopy History of esophagogastroduodenoscopy (EGD) S/P removal of thyroid nodule S/P thyroidectomy Family History Other No family history of adverse response to anesthesia Social History Smoking Status: Former smoker Tobacco Type: Cigarettes Second Hand Exposure: Yes; Hx Alcohol Use: No (hx) Hx Substance Use: Yes (medical marijuana) Last Used Substance: Unknown Last Used Substance Other:: daily vape Preferred Language: New Zealander Communication Ability: Effective Breeder Hen Service Technician Required: No Beliefs That Will Affect Care: None Current Living Situation: Alone Feels Safe at Home: Yes Assistive Devices: Oxygen - Continuous Review of Systems Review of Systems: Please refer to admission H&P. No additions or deletions Physical Exam Constitutional: WD/WN, vitals as above Eyes: EOM intact bilaterally; no conjunctival abnormality ENMT: external ear and nose normal, oropharynx normal Neck: trachea midline, no thyromegaly normal visual inspection Respiratory: normal respiratory effort, lungs clear to auscultation no respiratory distress Cardiovascular: RRR, no murmur, no edema Gastrointestinal (Abdomen): Inspection/Auscultation: abdomen normal to inspection; abdomen not distended Musculoskeletal: Extremities: + abnormal strength (Right arm with 0/5 strength) Skin: no rashes, warm and dry Neurologic: awake; + does not move all extremities Motor/Sensory: + sensory deficit (No sensation in the right arm) Psychiatric: Orientation: alert, oriented to person and cooperative Results & Data Results & Data ([facility]) Vital Signs (Past 12 Hours) Vital Signs Temp Pulse Resp BP Pulse Ox 01/05/22 07:22 36.5 C 101 H 22 112/76 97 01/04/22 22:32 36.5 C 18 97/63 L 99 Critical Care Results & Data Vital Signs (Past 12 Hours) Vital Signs Temp Pulse Resp BP Pulse Ox 01/05/22 07:22 36.5 C 101 H 22 112/76 97 01/04/22 22:32 36.5 C 18 97/63 L 99 Lab & Micro Results (Past 24 Hours) RBC 3.26 M/uL (4.7-6.1) L 01/05/22 WBC 12.08 K/uL (4.8-10.8) H 01/05/22 Hgb 10.0 g/dL (14.0-18.0) L 01/05/22 Hct 29.7 % (42-52) L 01/05/22 MCV 91.1 fL (80-100) 01/05/22 MCH 30.7 pg (25-34) 01/05/22 MCHC 33.7 g/dL (32-36) 01/05/22 RDW Standard Deviation 44.1 fL (36.4-46.3) 01/05/22 RDW Coefficient of Variation 13.2 % (11.5-14.5) 01/05/22 Plt Count 474 K/uL (130-400) H 01/05/22 MPV 8.9 fL (7.4-10.4) 01/05/22 Neutrophils (%) (Auto) 75.8 % 01/05/22 Lymphocytes (%) (Auto) 10.9 % 01/05/22 Monocytes # (Auto) 1.36 K/uL (0.11-0.59) H 01/05/22 Eosinophils # (Auto) 0.14 K/uL (0-0.5) 01/05/22 Immature Granulocyte % (Auto) 0.6 % 01/05/22 Neutrophils # (Auto) 9.17 K/uL (1.4-6.5) H 01/05/22 Lymphocytes # (Auto) 1.32 K/uL (1.2-3.4) 01/05/22 Monocytes # (Auto) 1.36 K/uL (0.11-0.59) H 01/05/22 Eosinophils # (Auto) 0.14 K/uL (0-0.5) 01/05/22 Basophils # (Auto) 0.02 K/uL (0-0.2) 01/05/22 Immature Granulocyte # (Auto) 0.07 K/uL (0.00-0.02) H 01/05/22 Na 132 mmol/L (136-145) L 01/05/22 K 5.1 mmol/L (3.5-5.1) 01/05/22 Cl 102 mmol/L (98-107) 01/05/22 CO2 19 mmol/L (21-32) L 01/05/22 Anion Gap 11 (3-11) 01/05/22 BUN 63 mg/dl (6-23) H 01/05/22 Creatinine 2.14 mg/dl (0.6-1.4) H 01/05/22 Estimated GFR ( Amer) 37.4 ml/min 01/05/22 Estimated GFR (Non-Af Amer) 32.2 ml/min 01/05/22 BUN/Creatinine Ratio 29.4 (10-20) H 01/05/22 Glu 96 mg/dl (70-99(Fasting)) 01/05/22 Ca 9.3 mg/dl (8.5-10.1) 01/05/22 Phosphorus Level 4.7 mg/dl (2.5-4.9) 01/05/22 Total Bilirubin 0.6 mg/dl (0.2-1.0) 01/04/22 AST 25 U/L (13-39) 01/04/22 ALT 23 U/L (7-52) 01/04/22 Alkaline Phosphatase 99 U/L (34-104) 01/04/22 TP 6.6 gm/dl (6.0-8.3) 01/04/22 Albumin 3.3 gm/dl (3.4-5.0) L 01/04/22 Globulin 3.3 gm/dl (2.5-4.0) 01/04/22 Albumin/Globulin Ratio 1.0 (0.9-2) 01/04/22 Mg 2.2 mg/dl (1.7-2.4) 01/05/22 05:49 01/05/22 Calcium Level 9.3 mg/dl (8.5-10.1) 01/05/22 05:49 01/05/22 Diagnostic Findings (Past 24 Hours) Chest X-Ray 01/04/22 11:00 XR chest 1V portable CLINICAL HISTORY: Chest Pain TECHNIQUE: Single frontal radiograph of the chest was obtained. Comparison: Comparison is made to chest 2 views 01/22/2011 FINDINGS: No lines and tubes are seen. Partially obscured. Diffuse right airspace opacities are seen. Multifocal airspace opacities are also seen on the left, somewhat less prominent. Prominence of the pulmonary vasculature is noted. Small right pleural effusion is noted. IMPRESSION: 1. Extensive right greater than left airspace opacities are seen. Small right pleural effusion. Findings are favored to represent pneumonia. 2. Mild pulmonary edema. ACT 112: Negative or not required by law. Electronically signed by: Vahe Gooden M.D. 01/04/2022 11:[address] 01/04/22 11:57 CT chest diagnostic wo con CLINICAL HISTORY: metastatic lung ca, sob TECHNIQUE: Multidetector row helical CT of the chest was performed. Coronal and sagittal reformations were obtained. Automated dose lowering techniques and/or adjustment according to patient size were utilized for this exam. Comparison: Comparison is made to chest radiograph 01/04/2022 FINDINGS: Lungs and pleura: There is a small right pleural effusion. Diffuse solid and groundglass nodules are seen, right greater than left. In addition, there is perihilar mass lesion obstructing multiple bronchi. There is a 4.5 mm nodule in the right upper lobe with apparent necrotic center. Irregular thickening of the interlobular septa are seen in the right lung. Heart and pericardium: Heart size is normal. No pericardial effusion. Vessels: Unremarkable. Mediastinum and van: Multiple enlarged mediastinal nodes are seen. An aortopulmonary window node measures 10 mm in diameter. Multiple enlarged mediastinal nodes measure up to 17 mm in diameter. Evaluation for hilar lymphadenopathy is limited by noncontrast technique. Chest wall and lower neck: A left subclavian node measures 22 mm in diameter. Multiple enlarged right axillary nodes are seen measuring up to 11 mm. Partially noted is irregular thickening in the soft tissues medial to the humerus. This may represent atypical appearance of the musculature or large soft tissue metastatic deposit. Abdomen: Unremarkable. Bones: Unremarkable. IMPRESSION: Findings are concerning for malignancy, likely primary in the right lung with pleural and lymphangitic spread. Likely malignant right pleural effusion with associated pleural thickening. Multiple left nodular densities are also likely to represent metastases. Prominent lymph nodes are seen in the mediastinum, right axilla, and right subclavian stations. Possible large metastatic deposit in the medial aspect of the right proximal humerus. ACT 112: Negative or not required by law. Electronically signed by: Vahe Gooden M.D. 01/04/2022 12:41 PM Brain MRI 01/04/22 16:06 MR brain wo con HISTORY: 61 years-old Male Right arm weakness acute strokelike symptoms COMPARISON: None TECHNIQUE: Multiplanar multisequence MR of the brain was obtained without the use of IV contrast. FINDINGS: The office machines wirer localizer images demonstrate no gross extracranial abnormality. The study is motion degraded. The midline structures appear unremarkable. Partially empty sella. Numerous small foci of restricted diffusion are noted within the frontal and parietal lobes, notably involving the watershed distribution at the level of the centrum semiovale, largest area measuring 1.4 cm on image 18 of series 4. Additional small scattered foci are noted within the temporal and occipital lobes and cerebellar hemispheres. No acute intracranial hemorrhage, or territorial infarct. No midline shift, intra-axial mass or abnormal extra-axial collection. Mild scattered T2/FLAIR hyperintense foci are nonspecific however favor chronic microvascular ischemic disease. There are a few foci of blooming artifact on the T2 star series suggestive of chronic hemosiderin. The cerebral venous sinuses and major arterial flow voids appear patent. The skull, orbits and soft tissues are unremarkable. Trace mastoid effusions. 9 mm focus of polypoid mucosal thickening is noted within the left maxillary sinus. 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 A proximal thromboembolic source is considered. Correlation with echocardiogram recommended. ACT 112: Negative or not required by law. The above report was generated using voice recognition software. It may contain grammatical, syntax or spelling errors. Electronically signed by: Tim Ryan M.D. 01/05/2022 6:55 AM Venous Doppler Study 01/04/22 16:06 US venous doppler LE BI CLINICAL HISTORY: Cancer, concern for VTE TECHNIQUE: Bilateral lower extremity real-time compression venous ultrasound with Color Doppler imaging. Utilizing real-time ultrasonic imaging multiple real time high-resolution ultrasonic images with compression and noncompression maneuvers of the deep venous system in addition to color doppler imaging were performed from the common femoral vein through the proximal calf veins. COMPARISON: None available at the time of this dictation. FINDINGS: Currently there is normal compressibility of the deep venous system from the common femoral vein through the proximal calf veins. No current evidence of acute thrombosis is identified. Impression: No evidence of deep venous thrombus. ACT 112: Negative or not required by law. Electronically signed by: Vahe Gooden M.D. 01/04/2022 6:45 PM Renal Ultrasound 01/04/22 16:43 US renal/blad retro comp CLINICAL HISTORY: ZIENA TECHNIQUE: Multiple sonographic real-time images of the kidneys and bladder were obtained. COMPARISON: None available at the time of this dictation. FINDINGS: The right kidney measures 9.0 cm in length, and the left kidney measures 9.7 cm in length. The right kidney is normal in size, contour, cortical thickness, and echogenicity. No hydronephrosis is identified. No renal lesion is identified. No perinephric fluid collection is seen. The left kidney is normal in size, contour, cortical thickness and echogenicity. No hydronephrosis is identified. No renal lesion is identified. No perinephric fluid collection is seen. The bladder is partially distended. No large intraluminal mass is seen. IMPRESSION: Unremarkable examination and in particular no evidence of hydronephrosis. ACT 112: Negative or not required by law. Electronically signed by: Vahe Gooden M.D. 01/04/2022 6:48 PM I & O Totals 24 Hours 01/04/22 01/05/22 01/06/22 06:59 06:59 06:59 Intake Total 3005 / 3005 Balance 3005 / 3005 Cumulative 01/04/22 10:25 thru 01/05/22 07:56 Intake Total 3005 Balance 3005 RT Ventilator Mngmt (Last Documented) Ventilator Ordered Settings Respiratory Rate 22 01/05/22 07:22 Ventilator - PT Measurements Respiratory Rate 22 PG Care Time/CCT Total # of Minutes Spent Total Time Spent with Patient: Total time spent is greater than 50% in coordination of care (as documented) at patient's floor/unit and/or counseling patient: Coding Level of Care Code 79445 Inpt Consult Level 4 Diagnoses Lung cancer C34.90 Laterality: unspecified laterality Lung location: unspecified part of lung Pleural effusion, malignant J91.[address] scan of lung R91.8
--- NOTE | 2022-01-05 08:52 | Nephrology Consultation ---
Date of Consultation January 05, 2022 Assessment & Plan (1) Acute renal failure: * ZEINA likely due to dehydration in the setting of MAYLIN inhibitor therapy * Stop MAYLIN * Kidney function already improving following IVF administration * 12/31 Renal US negative for obstruction * Will order urinalysis, Uosm * Monitor PRP (2) Stage 3b chronic kidney disease: * Baseline Cr 1.7 - h/o microscopic hematuria. Renal impairment likely on the basis of microvascular disease. * Microscopic hematuria raises the possibility of IgA nephropathy, TBM disease or bladder CA. Note however that patient has newly diagnosed metastatic lung cancer (3) Hyponatremia: * Mild asymptomatic hyponatremia * Will obtain serum and urine osmolality * Continue gentle hydration * Monitor PRP (4) Metabolic acidosis: * Mild SHILPA likely related to ZEINA * Will provide bicarbonate w/ IVF (5) Lung cancer: * R pancoast tumor * Histology c/w poorly differentiated carcinoma thought to be of lung primary * 01/04/[address] revealed R perihilar mass obstructing multiple bronchi, small R pleural effusion, enlarged lymph nodes in mediastinum/R axilla/R subclavian region. There is also a possible large metastatic lesion in the R proximal humerus * Await Oncology input History of Present Illness Reason for Consultation: ZEINA/CKD Attending Physician: Jluis Sauceda MD History of Present Illness Mr. Fischer is a 61 year old male who is seen at the request of Dr. Sauceda for evaluation of ZEINA/CKD. Medical records in the EMR were reviewed today and are summarized as follows: Mr. Fischer has stage IIIB CKD (moderate impairment). Baseline Cr has been 1.7. Outpatient evaluation by Dr. Sales revealed intermittent microscopic hematuria but no proteinuria, renal US w/ a simple cyst, normal serologic studies. Mr. Fischer's medical history is also significant for HTN, DM, ASCVD, papillary thyroid CA s/p thyroidectomy 2010 and h/o cigarette smoking (quit 2020), active vaping and medical marijuana use. October 2021 Mr. Fischer developed R shoulder pain. 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 Histology revealed a poorly differentiated carcinoma thought to be of lung primary. He has been referred to [facility]. Thoracentesis was performed 12/31/21 and 1.7 L fluid removed. Mr. Fischer presented to [facility] yesterday w/ progressive dyspnea and anorexia for the last 4 days. Cr was elevated at 3.25. Patient appeared clinically volume contracted and received 1L NS. Noncontrast chest CT revealed R perihilar mass obstructing multiple bronchi, small R pleural effusion, enlarged lymph nodes in mediastinum/R axilla/R subclavian region. There is also a possible large metastatic lesion in the R proximal humerus. Allergies Allergy/AdvReac Type Severity Reaction Status Date / Time No Known Drug Allergies AdvReac Verified 01/04/22 12:55 Home Medications Medication Instructions Recorded Confirmed Type Medical Thc 1 dose INHALATION DAILY 04/15/21 01/04/22 History lisinopril 5 mg tablet 5 mg PO QAM #90 tab 06/23/21 01/04/22 Rx diclofenac sodium 1 % topical gel 2 g TOPICAL DAILY PRN 01/04/22 01/04/22 History hydrocodone 5 mg-acetaminophen 300 2 tab PO TID PRN 01/04/22 01/04/22 History mg tablet levothyroxine 150 mcg tablet 150 mcg PO [id number] 01/04/22 01/04/22 History (Synthroid) Patient History Medical History Anxiety Depression Lung cancer Medical marijuana use Osteoarthritis Secondary hyperparathyroidism Stage 3b chronic kidney disease Thyroid cancer Vitamin D deficiency Surgical History H/O arthroscopic knee surgery right knee H/O lymph node biopsy History of colonoscopy History of esophagogastroduodenoscopy (EGD) S/P removal of thyroid nodule S/P thyroidectomy Family History Other No family history of adverse response to anesthesia Social History Smoking Status: Former smoker Tobacco Type: Cigarettes Second Hand Exposure: Yes; Hx Alcohol Use: No (hx) Hx Substance Use: Yes (medical marijuana) Last Used Substance: Unknown Last Used Substance Other:: daily vape Preferred Language: Amharic Communication Ability: Effective Laundry Agent Required: No Beliefs That Will Affect Care: None Current Living Situation: Alone Feels Safe at Home: Yes Assistive Devices: Glasses Review of Systems Constitutional: no fever Eyes: no problem reported Ear, Nose, Mouth, Throat: no problem reported Respiratory: + dyspnea; no cough Cardiovascular: no chest pain, no palpitations and no edema Gastrointestinal: no abdominal pain, no nausea, no vomiting and no diarrhea/loose stools Genitourinary: no dysuria, no urinary hesitancy or no hematuria Musculoskeletal: + problem reported (R shoulder pain); no back pain Integumentary: no rash Neurologic: no falls, no dizziness and no confusion Physical Exam Constitutional: not in distress Eyes: PERRL, conjunctivae normal, anicteric sclerae ENMT: external ear and nose normal, oropharynx normal Neck: trachea midline, no thyromegaly Respiratory: normal respiratory effort, lungs clear to auscultation Cardiovascular: RRR, no murmur, no edema Gastrointestinal (Abdomen): normal bowel sounds, soft, nontender, no hepatosplenomegaly Skin: no rashes, warm and dry Neurologic: awake; not confused Results & Data ([facility]) Vital Signs (Past 12 Hours) Vital Signs Temp Pulse Resp BP Pulse Ox 01/05/22 07:22 36.5 C 101 H 22 112/76 97 01/04/22 22:32 36.5 C 18 97/63 L 99 Laboratory Results Laboratory Tests 01/04/22 01/04/22 01/05/22 11:07 12:26 05:49 WBC 12.08 H Hgb 10.0 L Hct 29.7 L Plt Count 474 H Sodium 132 L Potassium Chloride Carbon Dioxide BUN Creatinine 3.25 H Glucose Calcium Phosphorus Magnesium B-Natriuretic Peptide 30 TSH Free T4 01/05/22 01/05/22 05:49 05:49 WBC Hgb Hct Plt Count Sodium 132 L Potassium 5.1 Chloride 102 Carbon Dioxide 19 L BUN 63 H Creatinine 2.14 H D Glucose 96 Calcium 9.3 Phosphorus 4.7 Magnesium 2.2 B-Natriuretic Peptide TSH 18.281 H Free T4 0.98 Diagnostic Findings 01/04/22 Renal US: The right kidney measures 9.0 cm in length, and the left kidney measures 9.7 cm in length. The right kidney is normal in size, contour, cortical thickness, and echogenicity. No hydronephrosis is identified. No renal lesion is identified. No perinephric fluid collection is seen. The left kidney is normal in size, contour, cortical thickness and echogenicity. No hydronephrosis is identified. No renal lesion is identified. No perinephric fluid collection is seen. The bladder is partially distended. No large intraluminal mass is seen PG Care Time/CCT Total # of Minutes Spent Total Time Spent with Patient: Total time spent is greater than 50% in coordination of care (as documented) at patient's floor/unit and/or counseling patient: Coding Level of Care Code 27428 Inpt Consult Level 5 Diagnoses Acute renal failure N17.9 Stage 3b chronic kidney disease N18.3 Hyponatremia E87.1 Metabolic acidosis E87.2 Lung cancer C34.90 Laterality: unspecified laterality Lung location: unspecified part of lung (1) Lung cancer Laterality: unspecified laterality Lung location: unspecified part of lung Qualified Code(s): C34.90 - Malignant neoplasm of unspecified part of unspecified bronchus or lung
[2022-01-05] MEDS ORDERED: LIDOCAINE 1% LOCAL 20 ML VIAL INJ ONE (09:47)
[2022-01-05] MEDS: HEPARIN SOD 5,000 UNIT/0.5 ML VIAL SQ SCH ×2 (09:49→20:15)
[2022-01-05] MEDS ORDERED: SODIUM BICARBONATE 8.4% 75 MEQ in SODIUM CHLORIDE 0.45 % 1,000 ML IV SCH (10:30)
[2022-01-05] MEDS ORDERED: SODIUM CHLORIDE 0.9% 1000ML 1,000 ML IV SCH (10:30)
--- NOTE | 2022-01-05 10:48 | Palliative Care Consultation ---
Date of Consultation January 05, 2022 Assessment & Plan (1) Palliative care encounter: Mr. Fischer is a 61 year old Male who presented to the [facility] with right arm weakness. SOB and chest discomfort. 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 He has been evaluated and seen by Oncologist Dr. Chao and per discussion with pulmonary, appears he is not a chemo or radiation candidate. Pulmonary has been involved in this gentleman's care and a thoracentesis was performed on 12/31 with 1.7L removed. Additional PMH includes: thyroid cancer, secondary hyperparathyroidism, and Vitamin D Deficiency. Code status has been briefly discussed and at this time is a full code. Overall goals of care conversation was recommended; hence getting Palliative Medicine involved. I was able to meet with Demarcus at his bedside. He had just had his Pleur-X catheter placed this morning and was experiencing some localized discomfort at the insertion site. I was able to have a goals of care conversation with just him in the room. There are numerous brothers, sisters, nieces, and nephews involved with his care. He also has a significant other, named Milla who he lives with, but is currently returning from [facility]. Additionally, he has a mother that is alive and well that lives in [place] with one of his sisters. I explained the importance of him documenting a medical decision maker. As it stands now, if his mother is alive and well, without a documented POA, all medical decision making would be deferred to her. He did say that all of his family loves him, but he is not sure they all would have his best interest when it comes to decision making. After conversation, he was able to designate his significant other, Milla, and his brother Starla as shared decision makers. I sent a message to Ania Lazcano who will work on completion of paperwork with the patient. We discussed code status in depth and he did indicate that he was comfortable with short term intubation and CPR; however, would not want his life prolonged more than 5 days should he not show improvement. He recognizes that his life is limited and that his treatment options are few. For now, remain a Full Code. His goal is to return home over the next few days with some family support and get his financial affairs in order. The above was discussed with Dr. Chung, Hospitalist and Farida MARLOWcad draftsman. (2) Pleural effusion, malignant: Pleur-X placed today. Currently on 4LNC. Thoracentesis performed on 12/31--> 1.7L removed. Some localized discomfort. Has Dilaudid 0.25mg IV Q6 PRN for which he received one dose. (3) Right arm weakness: Right brachial plexus artery ; poorly differentiated carcinoma; likely lung primary. Weakness progressively worsening, now can't lift arm off of pillow independently. History of Present Illness Reason for Consultation: Goals of Care Requesting Physician: Dr. Sauceda Attending Physician: Jluis Sauceda MD History of Present Illness Mr. Fischer is a 61 year old Male who presented to the [facility] with right arm weakness. SOB and chest discomfort. 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 He has been evaluated and seen by Oncologist Dr. Chao. Pulmonary has been involved in this gentleman's care and a thoracentesis was performed on 12/31 with 1.7L removed. Additional PMH includes: thyroid cancer, secondary hyperparathyroidism, and Vitamin D Deficiency. Code status has been briefly discussed and at this time is a full code. Overall goals of care conversation was recommended; hence getting Palliative Medicine involved. Please see A/P for further details. Thanks for involving Palliative Medicine with this unfortunate situation. Allergies Allergy/AdvReac Type Severity Reaction Status Date / Time No Known Drug Allergies AdvReac Verified 01/04/22 12:55 Home Medications Medication Instructions Recorded Confirmed Type Medical Thc 1 dose INHALATION DAILY 04/15/21 01/04/22 History lisinopril 5 mg tablet 5 mg PO QAM #90 tab 06/23/21 01/04/22 Rx diclofenac sodium 1 % topical gel 2 g TOPICAL DAILY PRN 01/04/22 01/04/22 History hydrocodone 5 mg-acetaminophen 300 2 tab PO TID PRN 01/04/22 01/04/22 History mg tablet levothyroxine 150 mcg tablet 150 mcg PO [id number] 01/04/22 01/04/22 History (Synthroid) Patient History Medical History (Updated 01/05/22 @ 10:48 by ALINE Howe) Anxiety Depression Lung cancer Medical marijuana use Osteoarthritis Palliative care encounter Secondary hyperparathyroidism Stage 3b chronic kidney disease Thyroid cancer Vitamin D deficiency Surgical History H/O arthroscopic knee surgery right knee H/O lymph node biopsy History of colonoscopy History of esophagogastroduodenoscopy (EGD) S/P removal of thyroid nodule S/P thyroidectomy Family History Other No family history of adverse response to anesthesia Social History Smoking Status: Former smoker Tobacco Type: Cigarettes Second Hand Exposure: Yes; Hx Alcohol Use: No (hx) Hx Substance Use: Yes (medical marijuana) Last Used Substance: Unknown Last Used Substance Other:: daily vape Preferred Language: Zambian Communication Ability: Effective Edge Setter Required: No Beliefs That Will Affect Care: None Current Living Situation: Alone Feels Safe at Home: Yes Assistive Devices: Oxygen - Continuous Review of Systems Review of Systems: Harriet System Assessment Scale: Pain: 0/3 SOB: 1/3 Tiredness: 1/3 Lack of Appetite: 0/3 Palliative Performance Scale: 40% Physical Exam Constitutional: + frail appearing and comfortable ENMT: Mouth: + dry oral mucous membranes Respiratory: + labored breathing and + cough Auscultation: + diminished lung sounds Cardiovascular: Rate/Rhythm: regular rate and regular rhythm Heart Sounds: normal S1 and normal S2 Extremities: normal capillary refill Gastrointestinal (Abdomen): Inspection/Auscultation: abdomen normal to inspection and normal bowel sounds Skin: + pallor Neurologic: Motor/Sensory: + abnormal movement (right arm flacid to 1/5) Psychiatric: Orientation: alert and oriented x 3 Insight: good insight Judgement: good judgement Results & Data ([facility]) Vital Signs (Past 12 Hours) Vital Signs Temp Pulse Resp BP Pulse Ox 01/05/22 07:22 36.5 C 101 H 22 112/76 97 PG Care Time/CCT Total # of Minutes Spent Total Time Spent with Patient: Total time spent is greater than 50% in coordination of care (as documented) at patient's floor/unit and/or counseling patient: 100 minutes Coding Level of Care Code 73846 Initial Inpt Care Lvl 3 Diagnoses Palliative care encounter Z51.5 Pleural effusion, malignant J91.0 Right arm weakness R29.898 Time Spent (min) 100
[2022-01-05] MEDS ORDERED: HYDROmorphone INJ 0.5 MG/0.5 ML SYR IV PRN (11:09)
--- NOTE | 2022-01-05 11:14 | XRay Report ---
XR chest 1V portable HISTORY: 61 years-old Male Right pleux catheter placement status post placement of a right-sided nehal st tube COMPARISON: Chest radiograph and chest CT 01/04/2022 TECHNIQUE: Portable AP view of the chest FINDINGS: Cardiac silhouette is enlarged. Masslike opacity of the right perihilar distribution and right lung a pex again noted. Pathologic bony destruction of the right first and second ribs again noted. Intersti tial coarsening with reticular nodular and airspace opacities throughout the right greater than left lungs redemonstrated. Moderate right pleural effusion is mildly decreased in size status post placeme nt of a right-sided chest tube, distal tip projected over the right hilum. No postprocedural pneumoth orax identified. IMPRESSION: 1. Decreased size of the loculated right pleural effusion status post placement of a right-sided ches t tube. No pneumothorax identified. 2. Right perihilar/right apical masslike opacities again noted. 3. Right greater than left reticular nodular densities with ill-defined airspace opacities are redemo nstrated and better characterized on the comparison chest CT. 4. Bony metastasis with pathologic destruction of the right first and second ribs. ACT 112: Negative or not required by law. The above report was generated using voice recognition software. It may contain grammatical, syntax o r spelling errors. Electronically signed by: Tim Ryan M.D. 01/05/2022 11:12 AM
--- NOTE | 2022-01-05 11:36 | Procedure Note ---
Procedure Note Date of Service January 05, 2022 Note Procedure: Ultrasound guided right Pleurx catheter placement. Indication: Recurrent malignant effusion Consent: Signed by patient and verified with timeout prior to procedure. Anesthesia: 15 mL's 1% lidocaine without epinephrine locally. Syrup Mixer: Dr. Shailesh Gifford Sizer Hand: SARAH Cisse Procedure: The patient was brought to the sedation unit. Standard monitoring was applied. Appropriate radiographic films had been reviewed prior to commencement of the procedure. Risks and benefits were again discussed with patient consent was verified. The patient was placed in the left side up lateral decubitus position. Limited thoracic ultrasound was performed which revealed a moderate-sized right effusion with compressive atelectasis. Site appropriate for the pleurotomy was marked. Skin was prepped and draped in normal sterile fashion. Using 1% lidocaine, the skin and soft tissues down to the pleura were anesthetized. A tract extending approximately 8 to 10 cm anteriorly from the pleurotomy site was also infiltrated and a site appropriate for the exit of the Pleurx catheter was marked. A 1 cm skin evgeny was made at the posterior site. The catheter over the needle apparatus was advanced into the pleural space with pleural fluid easily aspirated. A wire was passed through the catheter after the needle was removed. The Pleurx catheter was then loaded on the tunneling device. A 1cm skin incision was made at the anterior catheter exit site. The tunneling device with the attached Pleurx catheter were passed from the anterior incision back to the posterior incision until the cuff of the Pleurx catheter resided within the subcutaneous tissues. The catheter was palpated along its course and no kinking was identified. Serial dilatation was then performed over the wire with the pull-away catheter being left in place. The Pleurx was removed from the tunneling mechanism and advanced through the peel-away catheter. The catheter sheath was then peeled back as the Pleurx catheter was advanced into the pleural space. The Pleurx catheter course was palpated and no kinks were felt. It was attached to wall suction and a total of 940mL's was removed. Using 1-0 silk, 2 stitches were placed at the exit Pleurx site and the catheter secured in place. 2 silk l sutures were used to close the posterior incision. A sterile dressing was applied. The patient tolerated the procedure well without obvious complication. Post procedure x-ray is pending. Estimated blood loss: Less than 10 mL's Coding CPT Codes Pulmonary/Thoracic - Pulmonary and Thoracic: 39456 Insert pleural cathereter w/cuff ([id number]) Pulmonary/Thoracic - Pulmonary and Thoracic: 65745 US, Chest, real time with imaging documentation ([id number]) [facility] [place] Procedure Codes (Charges) Pulmonary/Thoracic Procedure 1: Pulmonary and Thoracic: 58778 Insert pleural cathereter w/cuff Procedure 2: Pulmonary and Thoracic: 05288 US, Chest, real time with imaging documentation
--- NOTE | 2022-01-05 11:56 | Electrocardiogram Report ---
Test Reason : Blood Pressure : / mmHG Vent. Rate : 095 BPM Atrial Rate : 095 BPM P-R Int : 134 ms QRS Dur : 088 ms QT Int : 322 ms P-R-T Axes : 032 099 042 degrees QTc Int : 404 ms Normal sinus rhythm Rightward axis Borderline ECG No previous ECGs available Confirmed by Kris Saleh ([id number]) on 01/05/2022 11:56:34 AM Referred By: REFERRED SELF Confirmed By:Kris Saleh
[2022-01-05 12:00] LABS: Protein Creatinine Ratio Urine 0.4 (0-0.2); Total Protein Pleural Fluid 3.4 gm/dl; Total Protein Urine Random 29.5 mg/dl (0-11.9)
[2022-01-05 12:12] LABS: Appearance Urine Clear (Clear); Bacteria Urine Automated Negative (Negative); Bilirubin Urine Negative (Negative); Blood Urine Trace (Negative); Color Urine Yellow; Epithelial Cell Urine Auto 0-5 /lpf (0-5); Glucose Urine UA Negative (Negative); Ketones Urine Negative (Negative); Leukocyte Esterase Urine Negative (Negative); Nitrite Urine Negative (Negative); Protein Urine Negative (Negative); RBC Urine Automated 0-4 /hpf (0-4); Specific Gravity Urine 1.015 (1.000-1.030); Urobilinogen Urine Negative (Negative)
--- NOTE | 2022-01-05 12:15 | Magnetic Resonance Report ---
MR shoulder RT wo con CLINICAL HISTORY: Right arm weakness (entirely ) TECHNIQUE: Multiplanar multisequence MR images of the right shoulder were obtained. Comparison: Comparison is made to CT chest 01/04/2022 FINDINGS: There is no evidence of os acromiale. There is osteoarthropathy of the acromioclavicular joint with resultant impression on the supraspinatus. There is a high-grade partial-thickness undersu rface tear of the supraspinatus tendon without retraction, as well as a partial-thickness tear of the myotendinous junction. The biceps tendon is intact and unremarkable. There is no evidence of muscle atrophy. The visualized portions of the anterior, superior, and inferior labrum are unremarkable. No effusion is present. Normal cartilage and marrow signal in the glenohumeral joint. There is partial visualization of a soft tissue mass within the short belly of the biceps that appear s to encase the neurovascular bundle along its observed course. Also partial visualization of axillar y lymph nodes. IMPRESSION: 1. This exam is not tailored for evaluation of brachial plexus, and evaluation is further limited by noncontrast technique. However, there is partial visualization of a soft tissue mass within the shor t head of the biceps. This appears to encase the neurovascular bundle where visualized. Partial visua lization of right axillary lymph nodes which are better seen on prior CT chest. 2. High-grade partial-thickness undersurface tear of the supraspinatus tendon. ACT 112: Negative or not required by law. Electronically signed by: Vahe Gooden M.D. 01/05/2022 12:14 PM
[2022-01-05 12:34] LABS: Appearance Pleural Fluid CLOUDY; Basophils, Fluid 0 %; Color Pleural Fluid AMBER; Eosinophils, Fluid 1 %; Lymphocytes, Fluid 24 %; Mono,Macrophage,Mesothelial 32 %; Neutrophils, Fluid 43 %; RBC Pleural Fluid (A) 19000 /uL; Source Pleural Fluid RIGHT LUNG; WBC Pleural Fluid (A) 360 /uL
[2022-01-05] MEDS ORDERED: HYDROmorphone INJ 1 MG/ML SYRINGE IV STA (13:47)
[2022-01-05] MEDS ORDERED: cefTRIAXone SODIUM 1,000 MG in DEXTROSE 5% 50 ML IV SCH (15:45)
[2022-01-05] MEDS: oxyCODONE HCL IR 5 MG TAB (IMMEDIATE RELEASE) PO PRN (17:22)
--- NOTE | 2022-01-05 18:03 | Hospitalist Progress Note ---
Date of Service January 05, 2022 Assessment & Plan (1) Lung cancer: Plan: Poorly differentiated carcinoma; primary source is lung, EGFR tumor mutation is pending as per Dr. Chao #CT of lung showed Findings are concerning for malignancy, likely primary in the right lung with pleural and lymphangitic spread. Likely malignant right pleural effusion with associated pleural thickening. Multiple left nodular densities are also likely to represent metastases. Prominent lymph nodes are seen in the mediastinum, right axilla, and right subclavian stations. Possible large metastatic deposit in the medial aspect of the right proximal humerus. -#Brain MRI showed : Numerous small acute infarcts are noted within a multiple vascular territory throughout the cerebral hemispheres and cerebellum. A proximal thromboembolic source is considered. Correlation with echocardiogram recommended. - Right brachial plexus MRI # partial visualization of a soft tissue mass within the short head of the biceps. This appears to encase the neurovascular bundle where visualized. Partial visualization of right axillary lymph nodes which are better seen on prior CT chest. High-grade partial-thickness undersurface tear of the supraspinatus tendon. #Status post Pleurx catheter placement - (2) Right arm weakness: Plan: Presumed to be from malignant invasion of nerves versus acute infarct, MRI of the right shoulder showed partial resolution soft tissue mass within this short head of biceps this appears to increase the neurovascular bundle were visualized - MRIs as above - PT/OT (3) Acute renal failure: Plan: -Creatinine is trending down -Ultrasound of the kidneys did not show any evidence of hydronephrosis Continue IV fluid BMP tomorrow (4) Thyroid cancer: Plan: TSH of 18 Check free T4 (5) DVT prophylaxis: Plan: Heparin 5,000 units SQ BID -> Will get LE Dopplers to make sure no DVT. Will monitor closely and get MRI brain to ensure no brain mets. Did discuss with Dr. Chao who felt VTE ppx was indicated. Discussed code status with patient - Would not want CPR or cardioversion. If heart stops, he would want to be let to pass away. However, was amenable to intubation and ventilator for a few days if we thought he could return to some quality of life. Discussed with [id number] present. (6) Stroke: Plan: -Evidence of numerous small acute infarcts within the multiple vascular territory throughout the cerebral hemispheres and cerebellum possibly thr omboembolic -Proceed with stroke work-up Neurology consult -Carotid Doppler -Echocardiogram -LDH -A1c Carotid Doppler MRA of brain Admission and Anticipated Discharge Date Admission Date: January 04, 2022 Subjective No complaint, status post thoracentesis, Pleurx catheter was placed, monitor for 24 hours, family is trained for catheter maintenance tomorrow, acute kidney injury, improving slowly, no evidence of hydronephrosis, evidence of numerous acute infarcts in multi vascular territories in both cerebrum and cerebellum, Review of Systems Review of Systems: Vermillion System Assessment Scale: Pain: 0/3 SOB: 1/3 Tiredness: 1/3 Lack of Appetite: 0/3 Palliative Performance Scale: 40% Constitutional: no fever Eyes: no problem reported Ear, Nose, Mouth, Throat: no problem reported Respiratory: + dyspnea; no cough Cardiovascular: no chest pain, no palpitations and no edema Gastrointestinal: no abdominal pain, no nausea, no vomiting and no diarrhea/loose stools Genitourinary: no dysuria, no urinary hesitancy or no hematuria Musculoskeletal: + problem reported (R shoulder pain); no back pain Integumentary: no rash Neurologic: no falls, no dizziness and no confusion Physical Exam Constitutional: WD/WN, vitals as above + frail appearing and comfortable; not in distress Eyes: PERRL, conjunctivae normal, anicteric sclerae EOM intact bilaterally; no conjunctival abnormality ENMT: external ear and nose normal, oropharynx normal Mouth: + dry oral mucous membranes Neck: trachea midline, no thyromegaly normal visual inspection Respiratory: normal respiratory effort, lungs clear to auscultation + labored breathing and + cough; no respiratory distress Auscultation: + diminished lung sounds Cardiovascular: RRR, no murmur, no edema Rate/Rhythm: regular rate and regular rhythm Heart Sounds: normal S1 and normal S2 Extremities: normal capillary refill Gastrointestinal (Abdomen): normal bowel sounds, soft, nontender, no hepatosplenomegaly Inspection/Auscultation: abdomen normal to inspection and normal bowel sounds; abdomen not distended Musculoskeletal: Extremities: + abnormal strength (Right arm with 0/5 strength) Skin: no rashes, warm and dry + pallor Neurologic: awake; + does not move all extremities and not confused Motor/Sensory: + abnormal movement (right arm flacid to 1/5) and + sensory deficit (No sensation in the right arm) Psychiatric: Orientation: alert, oriented x 3, oriented to person and cooperative Insight: good insight Judgement: good judgement Results & Data Results & Data ([facility]) Vital Signs (Past 12 Hours) Vital Signs Temp Pulse Resp BP Pulse Ox Pulse Ox 01/05/22 15:43 36.9 C 101 H 22 118/72 91 01/05/22 12:53 93 01/05/22 07:22 36.5 C 101 H 22 112/76 97 PG Care Time/CCT Total # of Minutes Spent Total Time Spent with Patient: Total time spent is greater than 50% in coordination of care (as documented) at patient's floor/unit and/or counseling patient: Coding Level of Care Code 23671 Subseq Hosp Care Lvl 3 Diagnoses Lung cancer C34.90 Laterality: unspecified laterality Lung location: unspecified part of lung Right arm weakness R29.898 Acute renal failure N17.9 Thyroid cancer C73 DVT prophylaxis Z29.9 Stroke I63.9 (1) Lung cancer Laterality: unspecified laterality Lung location: unspecified part of lung Qualified Code(s): C34.90 - Malignant neoplasm of unspecified part of unspecified bronchus or lung
[2022-01-05] MEDS: [UNRECOGNIZED DRUG - REMARK] SCH (21:02)
[2022-01-05] MEDS ORDERED: PHARMACIST DISCHARGE MED REC CONSULT PRN (22:23)
[2022-01-05] MEDS ORDERED: LORazepam 2 MG/1 ML VIAL IV ONE (22:24)
[2022-01-05] MEDS ORDERED: LORazepam 0.5 MG TAB PO PRN (23:03)
[2022-01-06] MEDS: oxyCODONE HCL IR 5 MG TAB (IMMEDIATE RELEASE) PO PRN ×3 (01:44→16:50)
[2022-01-06] MEDS: HEPARIN SOD 5,000 UNIT/0.5 ML VIAL SQ SCH ×2 (05:34→14:01)
[2022-01-06] MEDS ORDERED: SYNTHROID 150 MCG PO SCH (06:30)
--- NOTE | 2022-01-06 06:41 | Magnetic Resonance Report ---
MR angio head wo con HISTORY: 61 years-old Male STROKE . Acute strokelike symptoms COMPARISON: Brain MRI 01/04/2022 TECHNIQUE: MRA of the head was obtained without the use of IV contrast utilizing 3-D [id number] s equencing with MIP reformats. All measurements were obtained according to NASCET criteria. FINDINGS: Motion degraded exam. The imaged internal carotid arteries, middle and anterior cerebral arteries are patent. The distal vertebral arteries, basilar and posterior cerebral arteries are patent. No aneury sm, dissection, high-grade stenosis or arterial occlusion. IMPRESSION: Unremarkable MRA of the head. ACT 112: Negative or not required by law. The above report was generated using voice recognition software. It may contain grammatical, syntax o r spelling errors. Electronically signed by: Tim Ryan M.D. 01/06/2022 6:39 AM
--- NOTE | 2022-01-06 08:22 | Neurology Consultation ---
Date of Consultation January 06, 2022 Assessment & Plan (1) Right arm weakness: (2) Progressive focal motor weakness: (3) Metastatic disease: this patient is complicated neurologically. The patient's history is consistent with progressive weakness of 1st the right upper extremity ( to a profound nature) and then in the left upper extremity and right lower extremity. In addition there are dysesthesias and numbness (as well as pain) 1st in the right upper extremity and then in the other 2 limbs. He has neck pain and shoulder pain on the right. Imaging reveals a significant mass in the right brachial plexus area which I believe is wrapping around the nerves and creating the profound right upper extremity symptoms. It is likely metastases from the lung (biopsy showed poorly differentiated adenocarcinoma. The origin is likely a right low back. He has bony mets as well. The patient had an MRI of the brain with multiple white and diaz matter lesions diffusely in the hemispheres bilaterally (left greater than right side) and posterior fossa bilaterally. Unfortunately no contrast was given because of his renal status. If these lesions were operations support representative of stroke they would have to be acute embolic lesions likely from the heart. Unfortunately, his history is more consistent with a progressive nature to his symptoms ( no sudden onset of symptoms suggestive of stroke) and I suspect that his lesions in the central nervous system are metastases. recommendations: 1. I spoke with Dr. Ng regarding the benefit of getting MRIs with contrast for the brain and cervical spine (I suspect he may have cervical spine Mets also). We agreed that the benefits of gadolinium in helping to make solid diagnoses outweighs the risk of gadolinium to his renal status. 2. Therefore, MRI of the brain with contrast and MRI of the cervical spine to evaluate for Mets. 3. Echocardiogram is pending. If this shows source of emboli that he would need anticoagulation. Anticoagulation would be risky in this patient given his cancer and metastases ( increased bleeding risk). 4. continue 81 milligram aspirin tablet now. 5. oncology consultation to recommend treatment options. 6. if all of these lesions are metastases then he might benefit from a course of steroids to help his symptoms. Overall, I spent a total of 100 minutes with this case including review of records, review of MRI films, direct evaluation the patient bedside, and discussion of the patient, his spouse, his brother, and RN at bedside, and Kristal, Berenice, and Shelby, including differential diagnosis and treatment options. History of Present Illness Reason for Consultation: Is a 61-year-old, who I was asked to see at the request of Dr. Chung, for neurologic consultation regarding possible embolic strokes. Requesting Physician: Dr. Chung Attending Physician: Mihai Chung MD History of Present Illness This patient has no history of strokes, heart disease, hypertension, or diabetes. He was a cigarette smoker starting age 20 quitting about 6 years ago. Patient has been having right upper extremity weakness for several months. It started very mildly and gradually and has been progressively getting worse. This right upper extremity weakness got quite severe prior to him coming to the emergency room on January 04. There is no history (I have asked him this several times) of any sudden onset weakness or numbness in his limbs. It seems that he has some weakness starting in his left upper extremity and right lower extremity. In addition, he has numbness in his right arm and right leg. He has some numbness in his right face. All of these dysesthesias have developed gradually and progressively. He has neck pain and significant fatigue. He has no swallowing issues or confusion. Patient was admitted on January 04 with shortness of breath, chest pain, right shoulder pain and right arm weakness. He had decreased appetite unsteady gait. Chest x-ray showed a pleural effusion. He had a procedure by Dr. Gifford. MRI of the brain without contrast showed multiple white matter spots on diffusion imaging in both hemispheres and in the posterior fossa. There were multiple scattered spots in all vascular distributions. I discussed these films with Dr. Ryan and we both agree that this could be metastasis as opposed to acute embolic stroke. There was no mass effect but there may not be if these lesions are relatively new. MR angiography of the [place] was quite normal. CT scan of the chest showed right brachial plexus mass, with right Lung lesions, Enlarged lymph nodes and a pleural effusion with pleural thickening. chest x-ray showed lesions in the right 1st and 2nd ribs consistent with metastases. Carotid ultrasound is pending. Patient feels that he is progressively getting worse each day. Allergies Allergy/AdvReac Type Severity Reaction Status Date / Time No Known Drug Allergies AdvReac Verified 01/04/22 12:55 Home Medications Medication Instructions Recorded Confirmed Type Medical Thc 1 dose INHALATION DAILY 04/15/21 01/04/22 History lisinopril 5 mg tablet 5 mg PO QAM #90 tab 06/23/21 01/04/22 Rx diclofenac sodium 1 % topical gel 2 g TOPICAL DAILY PRN 01/04/22 01/04/22 History hydrocodone 5 mg-acetaminophen 300 2 tab PO TID PRN 01/04/22 01/04/22 History mg tablet levothyroxine 150 mcg tablet 150 mcg PO [id number] 01/04/22 01/04/22 History (Synthroid) Patient History Medical History Anxiety Depression Lung cancer Medical marijuana use Osteoarthritis Palliative care encounter Secondary hyperparathyroidism Stage 3b chronic kidney disease Thyroid cancer Vitamin D deficiency Surgical History H/O arthroscopic knee surgery right knee H/O lymph node biopsy History of colonoscopy History of esophagogastroduodenoscopy (EGD) S/P removal of thyroid nodule S/P thyroidectomy Family History Mother Stroke Father , age 68 of an [place] Myocardial infarction Other No family history of adverse response to anesthesia Social History (Updated 01/06/22 @ 08:38 by Angel Luis Echeverria MD) Smoking Status: Former smoker Tobacco Type: Cigarettes Age Started Using Tobacco: 20; Age Quit Using Tobacco: 55; Second Hand Exposure: Yes; Hx Alcohol Use: No (hx) Hx Substance Use: Yes (medical marijuana) Last Used Substance: Unknown Last Used Substance Other:: daily vape Preferred Language: [place] Communication Ability: Effective Paint Technician Required: No Beliefs That Will Affect Care: None Current Living Situation: Alone current occupational status: retired 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 Feels Safe at Home: Yes Assistive Devices: Oxygen - Continuous Review of Systems Constitutional: + fatigue, + weakness and + anorexia; no fever Eyes: no diplopia, no eye pain and no worsening vision Ear, Nose, Mouth, Throat: no ear pain, no tinnitus, no hearing loss, no dizziness, no hoarseness and no dysphagia Respiratory: no cough and no dyspnea Cardiovascular: + chest pain; no palpitations and no lightheadedness Gastrointestinal: no abdominal pain, no nausea and no vomiting Musculoskeletal: + neck pain; no back pain, no radicular pain, no joint pain and no myalgia Integumentary: no rash and no lesions Neurologic: + gait abnormality, + localized weakness, + tingling and + numbness; no generalized weakness, no tremor(s), no abnormal movements, no headache(s), no abnormal speech, no confusion and no memory loss Psychiatric: no depression, no irritability, no anxiety, no difficulty concentrating, no confusion and no hallucinations Endocrine: no fatigue and no flushing Hematologic / Lymphatic: no easy bleeding and no easy bruising Allergy / Immunological: no urticaria and no problem reported Exam (Neuro) Physical Exam: The patient is right-handed. The patient is awake, alert, and attentive. Speech is normal without any aphasia or dysarthria. The patient can name objects, repeat phrases, and has normal spontaneous speech. Mentation and thought processes are intact, with orientation to person, place and time, and normal fund of knowledge. Attention and concentration are normal. Mood and affect are normal and appropriate. General appearance and grooming are normal. Short and long-term memory are intact to conversation. Pupils are 4 mm bilaterally and reactive to light. Extraocular eye muscles are intact without nystagmus. Visual acuity and visual woo seem normal grossly to confrontation. There are no deficits to sensation in the face in all 3 distributions of the fifth cranial nerve bilaterally. Corneal reflexes are positive bilaterally. Facial strength was normal bilaterally I 1st I thought the patient had a right facial droop at rest but I was not convinced of this as I Re studied.. Hearing seems normal bilaterally. Palate moves well without asymmetry. There is normal sternocleidomastoid and trapezius (shoulder shrug) strength bilaterally. Tongue is midline with good strength bilaterally. Neck has a Decreased range of motion with discomfort. There are no cervical bruits bilaterally. There are no cranial or ocular bruits. Heart is without murmur. There is a regular rhythm and rate. Cervical, thoracic, and lumbar spine are mildly tender to palpation. Gait is not tested, and stance sitting up bed is poor because of pain With outstretched arm on the left there is no drift. There are no resting, postural, or action tremors. There is no ataxia with finger to nose testing on the left. There is good facility in the left hand. No other abnormal involuntary movements are noted. the right upper extremity is near plegic but has no abnormal involuntary. Motor strength is Essentially 5/5 in the left upper extremity and left lower extremity both proximally and distally. The right upper extremity has some 1/5 movement of rotation at the shoulder otherwise 0/5 in all muscles proximally and distally. Right lower extremity is 4/5 diffusely. The right upper extremity has markedly decreased tone. There is no atrophy noted in the muscles. Muscle bulk is normal, there is no tenderness to palpation, no myotonia to percussion, and no fasciculations seen. Sensory examination reveals some decreased sensation in the right upper extremity diffusely, decreased sensation of the right face mildly, and some mild decreased sensation in the right lower extremity distally compared to the left. Reflexes are 0/4 in the biceps, brachioradialis, and Achilles tendons bilate rally. Reflexes are 1/4 in the quadriceps and triceps tendons bilaterally. There is no clonus bilaterally. Toes are downgoing with plantar stimulation on the left and equivocal on the right. Peripheral pulses are present and of normal quality distally in all 4 limbs. There is no peripheral edema noted in the limbs. Results & Data ([facility]) Vital Signs (Past 12 Hours) Vital Signs Temp Pulse Pulse Resp BP Pulse Ox 01/06/22 07:44 100 H 01/06/22 04:10 36.4 C L 99 H 18 106/64 95 01/05/22 23:52 36.7 C 107 H 18 102/68 96 01/05/22 22:19 100 H 01/05/22 20:45 103 H 01/05/22 20:40 36.8 C 102 H 18 102/64 94 PG Care Time/CCT Total # of Minutes Spent Total Time Spent with Patient: Total time spent is greater than 50% in coordination of care (as documented) at patient's floor/unit and/or counseling patient: Coding Level of Care Code 25397 Inpt Consult Level 5 Diagnoses Right arm weakness R29.898 Progressive focal motor weakness R53.1 Metastatic disease C79.51 Area of secondary neoplastic involvement: bone Time Spent (min) 100 Comment add modifiers as able (1) Metastatic disease Area of secondary neoplastic involvement: bone Qualified Code(s): C79.51 - Secondary malignant neoplasm of bone
--- NOTE | 2022-01-06 08:37 | Nephrology Progress Note ---
Date of Service January 06, 2022 Assessment & Plan (1) Acute renal failure: Plan: * ZEINA likely due to dehydration in the setting of MAYLIN inhibitor therapy * MAYLIN has been stopped * 12/31 Renal US negative for obstruction * 01/05 Urine sediment - negative for cellular casts * Kidney function is improving. Will continue gentle hydration w/ NaHCO3 supplement today * Monitor PRP (2) Stage 3b chronic kidney disease: Plan: * Baseline Cr 1.7 - h/o microscopic hematuria. Renal impairment likely on the basis of microvascular disease. * Microscopic hematuria raises the possibility of IgA nephropathy, TBM disease or bladder CA. Note however that patient has newly diagnosed metastatic lung cancer (3) Hyponatremia: Plan: * Mild asymptomatic hyponatremia * Elevated Uosm suggestive of mild dehydration/ADH effect (4) Metabolic acidosis: Plan: * Improved following NaHCO3 administration (5) Lung cancer: Plan: * R pancoast tumor * Histology c/w poorly differentiated carcinoma thought to be of lung primary * 01/04/[address] revealed R perihilar mass obstructing multiple bronchi, small R pleural effusion, enlarged lymph nodes in mediastinum/R axilla/R subclavian region. There is also a possible large metastatic lesion in the R proximal humerus * Await Oncology input - prognosis is guarded * Case discussed w/ Neurology and patient's spouse today. MRI w/ gadolinium needed to differentiate between MEDICAL CODING INSTRUCTOR embolic stroke vs cancer metastasis. EGFR is > 30 cc/min. Patient is at low risk for NFD. Recommend proceed w/ contrast + MRI to determine whether heparin is needed vs MEDICAL CODING INSTRUCTOR mets Admission and Anticipated Discharge Date Admission Date: January 04, 2022 Subjective Mr. Fischer was evaluated in his hospital room this morning. His was present at bedside. Mr. Fischer underwent R Pleurx catheter placement yesterday w/ 940 cc fluid removal. He reports that his breathing is improved. He voices no new medical concerns Review of Systems Constitutional: no fever Eyes: no problem reported Ear, Nose, Mouth, Throat: no problem reported Respiratory: no cough Cardiovascular: no chest pain, no palpitations and no edema Gastrointestinal: no abdominal pain, no nausea, no vomiting and no diarrhe a/loose stools Genitourinary: no dysuria, no urinary hesitancy or no hematuria Musculoskeletal: + problem reported (R shoulder pain); no back pain Integumentary: no rash Neurologic: no falls, no dizziness and no confusion Physical Exam Constitutional: not in distress Eyes: PERRL, conjunctivae normal, anicteric sclerae ENMT: external ear and nose normal, oropharynx normal Neck: trachea midline, no thyromegaly Respiratory: normal respiratory effort, lungs clear to auscultation Cardiovascular: RRR, no murmur, no edema Gastrointestinal (Abdomen): normal bowel sounds, soft, nontender, no hepatosplenomegaly Skin: no rashes, warm and dry Neurologic: awake; not confused Results & Data ([facility]) Vital Signs (Past 12 Hours) Vital Signs Temp Pulse Pulse Resp BP Pulse Ox 01/06/22 08:22 36.6 C 99 H 20 96/62 L 94 01/06/22 07:44 100 H 01/06/22 04:10 36.4 C L 99 H 18 106/64 95 01/05/22 23:52 36.7 C 107 H 18 102/68 96 01/05/22 22:19 100 H 01/05/22 20:45 103 H 01/05/22 20:40 36.8 C 102 H 18 102/64 94 Laboratory Results Laboratory Tests 01/05/22 01/05/22 01/05/22 Unknown Unknown Unknown WBC Hgb Hct Plt Count Sodium Potassium Chloride Carbon Dioxide BUN Creatinine Est GFR (Non-Af Amer) Glucose Calcium Urine Color Yellow Urine Appearance Clear Urine pH 5.0 Ur Specific [place] 1.015 Urine Protein Negative Urine Glucose (UA) Negative Urine Blood Trace H Urine Nitrite Negative Urine WBC (Auto) 1-5 Urine RBC (Auto) 0-4 Urine Osmolality 511 Protein/Creatinin Ratio 0.4 H 01/06/22 01/06/22 08:40 08:40 WBC 11.71 H Hgb 10.1 L Hct 30.6 L Plt Count 411 H Sodium 133 L Potassium 4.9 Chloride 100 Carbon Dioxide 21 BUN 51 H Creatinine 2.02 H Est GFR (Non-Af Amer) 34.6 Glucose 91 Calcium 9.3 Urine Color Urine Appearance Urine pH Ur Specific [place] Urine Protein Urine Glucose (UA) Urine Blood Urine Nitrite Urine WBC (Auto) Urine RBC (Auto) Urine Osmolality Protein/Creatinin Ratio PG Care Time/CCT Total # of Minutes Spent Total Time Spent with Patient: Total time spent is greater than 50% in coordination of care (as documented) at patient's floor/unit and/or counseling patient: Coding Diagnoses Acute renal failure N17.9 Stage 3b chronic kidney disease N18.3 Hyponatremia E87.1 Metabolic acidosis E87.2 Lung cancer C34.90 Laterality: unspecified laterality Lung location: unspecified part of lung (1) Lung cancer Laterality: unspecified laterality Lung location: unspecified part of lung Qualified Code(s): C34.90 - Malignant neoplasm of unspecified part of unspecified bronchus or lung
[2022-01-06 08:51] LABS: Basophils # (auto) 0.02 K/uL (0-0.2); Basophils % (auto) 0.2 %; Eosinophils # (auto) 0.05 K/uL (0-0.5); Eosinophils % (auto) 0.4 %; Hematocrit (blood only) 30.6 % (42-52); Hemoglobin 10.1 g/dL (14.0-18.0); Immature Granulocytes # (auto) 0.07 K/uL (0.00-0.02); Immature Granulocytes % (auto) 0.6 %; Lymphocytes # (auto) 0.89 K/uL (1.2-3.4); Lymphocytes % (auto) 7.6 %; Mean Corpuscular Hemoglobin 30.1 pg (25-34); Mean Corpuscular Volume 91.3 fL (80-100); Mean Platelet Volume 8.5 fL (7.4-10.4); Monocytes # (auto) 1.32 K/uL (0.11-0.59); Monocytes % (auto) 11.3 %; Neutrophils # (auto) 9.36 K/uL (1.4-6.5); Neutrophils % (auto) 79.9 %; Platelet Count 411 K/uL (130-400); RDW Standard Deviation 43.6 fL (36.4-46.3); Red Blood Count 3.35 M/uL (4.7-6.1); White Blood Count 11.71 K/uL (4.8-10.8)
--- NOTE | 2022-01-06 09:03 | Pulmonology Progress Note ---
Date of Service January 06, 2022 Assessment & Plan (1) Lung cancer: Laterality: unspecified laterality Lung location: unspecified part of lung Qualified Code(s): C34.90 - Malignant neoplasm of unspecified part of unspecified bronchus or lung (2) Pleural effusion, malignant: (3) Abnormal CT scan of lung: Plan: Impression: 61-year-old male with reported history of advanced lung cancer with malignant pleural effusion. He is status post Pleurx catheter placement 01/05/2022 Recommendations: 1. Malignant pleural effusion: We will plan on draining the Pleurx catheter every other day starting tomorrow. 2. Advanced lung cancer: Recommend coordinating care with the patient's outpatient oncologist. 3. Continue oxygen titrated to keep saturations at or above 88%. 4. Unclear if radiation oncology consultation may be of benefit for the potential brachial plexopathy. 5. Agree with plans for palliative care. A long discussion with the patient as well as family members in the room. I advised him that based on the clinical progression and the rapidity of his disease, he may not get to the point where he can tolerate chemotherapy. Chemotherapy in his current condition would be unlikely to improve his overall quality of life and may actually accelerate his demise. Defer to his established oncologist as to treatment options. The family is anxious regarding the status of his treatment and overall plan. I advised them that based on his clinical deterioration, it would be feasible that the patient may not survive this hospitalization. They expressed understanding but are hopeful and optimistic that he can have some improvement and potentially extend his overall life span. Management of the patient's other medical issues is deferred to the hospitalist service. 40 minutes critical care time including end-of-life discussions with the patient and family. Admission and Anticipated Discharge Date Admission Date: January 04, 2022 Subjective Patient seen and examined. EMR reviewed. Discussed with family at bedside. The patient notes that the gasping has improved with drainage of the pleural fluid however he continues to exhibit significant shortness of breath with any significant mobility. He continues to have paroxysms of cough. He does not report any fevers chills or night sweats. He is not had any hemoptysis. He appears weaker today and more frail. Review of Systems Review of Systems: All systems reviewed & are unremarkable except as noted in Subjective Physical Exam Constitutional: Patient appears weak, fatigued, and cachectic. Neck: trachea midline, no thyromegaly normal visual inspection Respiratory: Coarse rhonchi on the right. Pleurx catheter site clean dry and intact Cardiovascular: RRR, no murmur, no edema Gastrointestinal (Abdomen): Inspection/Auscultation: abdomen normal to inspection; abdomen not distended Musculoskeletal: Extremities: + abnormal strength (Right arm with 0/5 strength) Skin: no rashes, warm and dry Neurologic: awake; + does not move all extremities Motor/Sensory: + sensory deficit (No sensation in the right arm) Psychiatric: Orientation: alert, oriented to person and cooperative Results & Data Results & Data ([facility]) Vital Signs (Past 12 Hours) Vital Signs Temp Pulse Pulse Resp BP Pulse Ox 01/06/22 08:22 36.6 C 99 H 20 96/62 L 94 01/06/22 07:44 100 H 01/06/22 04:10 36.4 C L 99 H 18 106/64 95 01/05/22 23:52 36.7 C 107 H 18 102/68 96 01/05/22 22:19 100 H Laboratory Results 01/06/22 08:40 Pleural fluid studies: Differential 43% neutrophils, 24% lymphocytes, 1% eosinophils, 32% mesothelial cells Total protein 3.4 LDH 688 Glucose 41 Cytology pending Diagnostic Findings Post procedure chest x-ray demonstrated the Pleurx catheter to be in good position with improvement of the right effusion. There are persistent p arenchymal opacities bilaterally, right greater than left. Osseous metastatic disease again appreciated. PG Care Time/CCT Total # of Minutes Spent Total Time Spent with Patient: Total time spent is greater than 50% in coordination of care (as documented) at patient's floor/unit and/or counseling patient: Coding Level of Care Code Critical Care 1st 30-74 mins Diagnoses Lung cancer C34.90 Laterality: unspecified laterality Lung location: unspecified part of lung Pleural effusion, malignant J91.[address] scan of lung R91.8 Time Spent (min) 40
--- NOTE | 2022-01-06 09:05 | Ultrasound Report ---
ULTRASOUND OF THE CAROTID ARTERIES CLINICAL HISTORY: Stroke COMPARISON: None available at the time of this dictation. TECHNIQUE: Real-time, grayscale, and color Doppler sonography of the carotid arteries is performed. I mages are reviewed in the transverse and longitudinal planes. FINDINGS: The carotid arteries are patent bilaterally and demonstrate antegrade flow. There is atherosclerotic plaque on the right and no atherosclerotic plaque on the left. Normal doppler arteri al waveforms are seen throughout. Velocity measurements are listed below. Common carotid peak systolic velocity (cm/sec): RIGHT: 72.1 LEFT: 89.8 ICA peak systolic velocity (cm/sec): RIGHT: 87.8 LEFT: 95.2 ICA/CC peak systolic ratio: RIGHT: 1.2 LEFT: 1.1 Antegrade flow was shown in the vertebral arteries. The external carotid arteries are patent. An echogenic and heterogeneous 3.8 x 2.4 x 3.8 cm mass with vascularity and round hypoechoic lesions is seen in the right supraclavicular region, lateral to the right common carotid artery. IMPRESSION: 1. There is no sonographic evidence of hemodynamically significant stenosis in the right or left rai tid arterial system. 2. Antegrade flow is shown in the vertebral arteries. 3. Supraclavicular complex mass compatible with previously noted extensive ana and soft tissue dise ase. Society of Radiologists in Ultrasound consensus guidelines: Normal: ICA PSV is <125 cm/sec and no plaque or intimal thickening is visible sonographically additional criteria include ICA/CCA PSV ratio <2.0 and ICA EDV <40 cm/sec <50% ICA stenosis: ICA PSV is <125 cm/sec and plaque or intimal thickening is visible sonographically additional criteria include ICA/CCA PSV ratio <2.0 and ICA EDV <40 cm/sec 50-69% ICA stenosis: ICA PSV is 125-230 cm/sec and plaque is visible sonographically additional criteria include ICA/CCA PSV ratio of 2.0-4.0 and ICA EDV of 40-100 cm/sec ?70% ICA stenosis but less than near occlusion: ICA PSV is >230 cm/sec and visible plaque and luminal narrowing are seen at diaz-scale and color Dopp ler ultrasound (the higher the Doppler parameters lie above the threshold of 230 cm/sec, the greater the likelihood of severe disease) additional criteria include ICA/CCA PSV ratio >4 and ICA EDV >100 cm/sec ACT 112: Negative or not required by law. Electronically signed by: Vahe Gooden M.D. 01/06/2022 9:04 AM
[2022-01-06] MEDS: ASPIRIN 81 MG CHEW PO SCH (09:16)
[2022-01-06 09:23] LABS: BUN Creatinine Ratio 25.2 (10-20); Calcium 9.3 mg/dl (8.5-10.1); Chol HDL Ratio 4.7 (0-5); Creatinine Clr Calc Pharmacy 35.9 ml/min; Est GFR (African American) 40.1 ml/min; Est GFR (Non-African American) 34.6 ml/min; Potassium 4.9 mmol/L (3.5-5.1)
[2022-01-06 09:49] LABS: Estimated Average Glucose 134 mg/dl; Hemoglobin A1C 6.3 % (4.5-5.6)
--- NOTE | 2022-01-06 10:27 | XCELERA ---
[id number]
[2022-01-06] MEDS ORDERED: SODIUM BICARBONATE 8.4% 75 MEQ in SODIUM CHLORIDE 0.45 % 1,000 ML IV SCH (10:30)
--- NOTE | 2022-01-06 12:22 | Palliative Care Progress Note ---
Date of Service January 06, 2022 Assessment & Plan (1) Palliative care encounter: Plan: I met with Dmearcus and his significant other, Milla; along with his brother Corrine. He appears to be declining each day. I discussed at length home health vs hospice with the patient and his family. There is a tumor marker that is pending review and should be ready by the end of the week. Pending this result, if there would be actionable mutation treatment, oral treatment could be considered. That being said, at current, the patient could benefit from hospice services. The patient and his family are agreeable to pursue hospice and if additional treatment options arise, they could decide to revoke hospice. I talked with the hospitalist, Dr. Chung, who speaks and rn case manager who will arrange. I did also have discussion with Dr. Chao to discuss as well who is in support of a hospice transition at this time. We discussed code status in depth and he did indicate that he was comfortable with short term intubation and CPR; however, would not want his life prolonged more than 5 days should he not show improvement. He recognizes that his life is limited and that his treatment options are few. For now, remain a Full Code; patient can return home as a full code under hospice and can transition to DNR/DNI. Goal to have hospice services arranged over the next 24 hours. Palliative will follow and should he decline, we will have further discuss regarding transition to comfort measures while here. For now, continue current treatment until discharged. (2) Pleural effusion, malignant: Plan: Pleur-X placed today. Currently on 4LNC. Thoracentesis performed on 12/31--> 1.7L removed. Some localized discomfort. Has Dilaudid 0.25mg IV Q6 PRN for which he received one dose. (3) Right arm weakness: Plan: Right brachial plexus artery ; poorly differentiated carcinoma; likely lung pr imary. Weakness progressively worsening, now can't lift arm off of pillow independently. Admission and Anticipated Discharge Date Admission Date: January 04, 2022 Subjective Mr. Fischer was evaluated in his hospital room this morning. His significant other, Milla and his brother Corrine were present. Pt continues to have a good sense of humor as his coping mechanism He had a Pleur-X drain placed yesterday. Review of Systems Review of Systems: [place] System Assessment Scale: Pain: 0/3 SOB: 1/3 Tiredness: 1/3 Lack of Appetite: 0/3 Palliative Performance Scale: 30% Physical Exam Constitutional: + frail appearing and comfortable ENMT: Mouth: + dry oral mucous membranes Respiratory: + labored breathing and + cough Auscultation: + diminished lung sounds Cardiovascular: Rate/Rhythm: regular rate and regular rhythm Heart Sounds: normal S1 and normal S2 Extremities: normal capillary refill Gastrointestinal (Abdomen): Inspection/Auscultation: abdomen normal to inspection and normal bowel sounds Skin: + pallor Neurologic: Motor/Sensory: + abnormal movement (right arm flacid to 1/5) Psychiatric: Orientation: alert and oriented x 3 Insight: good insight Judgement: good judgement Results & Data ([facility]) Vital Signs (Past 12 Hours) Vital Signs Temp Pulse Pulse Resp BP Pulse Ox 01/06/22 11:34 36.6 C 90 20 98/60 L 98 01/06/22 08:22 36.6 C 99 H 20 96/62 L 94 01/06/22 07:44 100 H 01/06/22 04:10 36.4 C L 99 H 18 106/64 95 PG Care Time/CCT Total # of Minutes Spent Total Time Spent with Patient: Total time spent is greater than 50% in coordination of care (as documented) at patient's floor/unit and/or counseling patient: 45 minutes Coding Level of Care Code 57448 Subseq Hosp Care Lvl 3 Diagnoses Palliative care encounter Z51.5 Pleural effusion, malignant J91.0 Right arm weakness R29.898 Time Spent (min) 45
[2022-01-06] MEDS: oxyCODONE/ACETAMINOPHEN 10-325 TAB PO PRN ×2 (12:54→22:07)
--- NOTE | 2022-01-06 13:08 | Radiation OncologyConsultation ---
Date of Consultation January 06, 2022 Assessment & Plan (1) Lung cancer: Laterality: unspecified laterality Lung location: unspecified part of lung Qualified Code(s): C34.90 - Malignant neoplasm of unspecified part of unspecified bronchus or lung Assessment: Mr. Fischer 61-year-old gentleman who presents with metastatic poorly differentiated carcinoma (PDL1 high expression). The patient is symptomatic with right shoulder pain and right arm weakness and also has a indwelling Pleurx catheter due to pleural effusion. The patient's overall condition has worsened since his initial diagnosis. In the outpatient setting, the patient was being seen by Dr. Antonio Chao for medical oncology at [facility] who is recommending initiating treatment with carboplatin and Taxol chemotherapy; Dr. Chao is still pursuing information regarding EGFR mutation status. The patient was admitted to the hospital due to poor pain control and weakness involving his right upper extremity. Palliative care has seen this patient and has discussed goals of care and code status and helped with pain management. Pulmonary medicine is also following this patient regarding the Ple urx catheter. I been asked to evaluate the patient regarding the role of palliative external beam radiation therapy. Recommendation: Palliative external beam radiation therapy to right apical lung mass to potentially help with right shoulder pain and improved strength in right upper extremity. Plan for 5 fractions. Plan: 1. CT simulation for treatment planning for radiation therapy tomorrow. Plan to start radiation therapy on . 2. Follow up on MRI of Brain with constrast. 3. Continue pain control as per primary team and palliative care medicine. 4. Hospice/comfort care is also a reasonable option for this patient based on patient's goals of care. 5. Follow-up with medical oncology in the outpatient setting. 6. Patient and family encouraged to call us with any further questions or concerns. Rationale/Explanation of Treatment: I have explained the indications, alternatives, benefits, risks and side effects of radiation therapy. I have explained the most common side effects which include but are not limited to skin erythema, skin break down, pulmonary fibrosis, adhesion development, radiation pneumonitis, spinal cord damage, brachial plexus damage, rib fracture, heart failure and heart disease, esophagitis, development of fistula, fatigue and development of secondary malignancy. I have explained the CT simulation process and treatment planning. I explained what to expect before, during and after treatment on a regular basis. The patient understands and would be willing to consent to treatment. The patient had multiple questions which were answered to his full satisfaction. Thank you for allowing us to participate in the care of this patient. This chart was completed in part utilizing [employer] Speech Voice Recognition software. Attempts were made to minimize the grammatical errors, random word insertions, pronoun errors and incomplete sentences. Any formal questions or c oncerns about the content, text or information contained within the body of this dictation should be directly addressed to the provider for clarification. Nick Chao MD Department of Radiation Oncology [facility] History of Present Illness Attending Physician: Mihai Chung MD History of Present Illness 2010. History of papillary thyroid cancer status post surgical resection and iodine treatment. Currently on thyroid hormone replacement therapy. 2020 to 2021. Patient presents with progressively worse right shoulder pain. 10/14/2021. X-ray of shoulder. IMPRESSION: No acute osseous abnormality in the right shoulder. 11/27/2021. MRI shoulder right. IMPRESSION: 1. Findings concerning for probable metastatic disease, including a large, partially visualized mass in the right axillary region, partially visualized mass in the right lung apex, and right axillary lymphadenopathy. The axillary mass appears to be located within the coracobrachialis muscle and abuts the neurovascular structures/brachial plexus. 2. Rotator cuff tendinopathy, with mild interstitial tearing at the supraspinatus and infraspinatus footprints. 3. Posterosuperior labral tear. 4. Moderate acromioclavicular osteoarthritis. 11/27/2021. MRI C-spine. IMPRESSION: 1. Soft tissue signal abnormality within the right lung apex. Correlation with dedicated CT of the chest advised. 2. Multilevel degenerative disc disease, greatest at the C5-6 level where results in moderate narrowing of the spinal canal and moderate to marked bilateral neuroforaminal stenosis. 12/04/2021. CT chest with contrast. IMPRESSION: Stage IV lung malignancy: 1. 8 (CC) x 8.7 (AP) x 5 (TV) cm necrotic right lung Pancoast tumor invading the apex and 1st/2nd ribs, compatible with primary lung malignancy. Consider further evaluation with MRI brachial plexus. 2. Right upper lobe lymphangitic carcinomatosis and pleural invasion with trace effusion. Innumerable bilateral pulmonary metastases. 3. Primary tumor or lymphadenopathy abuts the right subclavian artery; superior vena cava; right main and upper lobe pulmonary arteries; and coracobrachialis muscle. 4. Necrotic lymph node metastases to the right neck; right axilla; right superior mediastinum; right paratracheal/hilar region; and contralateral left hilum. 12/22/2021. Axillary mass, right, core needle biopsy. Poorly differentiated carcinoma. High PD-L1 expression. ALK negative. 12/29/2021. PET/CT scan. IMPRESSION: 1. There is extensive metabolic disease in the right hemithorax characterized by large pleural effusion, pleural based metastasis, right apical mass extending into the adjacent chest wall in ribs resulting in lytic lesions within the right there 1st through 3rd rib as well as mediastinal and hilar ana metastasis. There is also metastasis in the left lung where there are scattered solid and ground-glass nodules with metabolic activity. 2. There are metastatic cervical and right axillary lymph node as well as osseous metastasis and abnormal soft tissue within the right biceps muscle concerning for intramuscular metastasis. 12/31/2021. Medical oncology follow-up with Dr. Antonio Chao. Thoracentesis at [facility] for pleural effusion. Immunotherapy discussed. Narcotic pain medications for right shoulder pain. 12/31/2021. Thoracentesis by Dr. Foley at [facility]. 01/02/2022. Medical oncology telephone visit with Dr. Chao. Immunotherapy denied. Consider carboplatin and Alimta. Continue pursuing EGFR mutation test result. 01/04/2022. Patient admitted to [facility] due to poor pain control. 01/04/2022. MRI brain. 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 A proximal thromboembolic source is considered. Correlation with echocardiogram recommended. Considering the patient's history of lung cancer admixed with acute strokelike symptoms, the multifocal areas of restricted diffusion described may represent intracranial metastasis. Acute infarcts or a combination of metastasis with acute infarcts are difficult to differentiate without the use of IV contrast. 01/04/2022. MRI R Shoulder. IMPRESSION: 1. This exam is not tailored for evaluation of brachial plexus, and evaluation is further limited by noncontrast technique. However, there is partial visualization of a soft tissue mass within the short head of the biceps. This appears to encase the neurovascular bundle where visualized. Partial visualization of right axillary lymph nodes which are better seen on prior CT chest. 2. High-grade partial-thickness undersurface tear of the supraspinatus tendon. 01/05/2022. Palliative care consultation. CODE STATUS and healthcare proxies determined. 01/06/2022. Pulmonary inpatient follow-up with Dr. Gifford. Dr. Gifford had an in- depth discussion regarding potential treatment options for his cancer however emphasized rapidly he is condition is declining. Plan to continue with draining Pleurx catheter. Allergies Allergy/AdvReac Type Severity Reaction Status Date / Time No Known Drug Allergies AdvReac Verified 01/04/22 12:55 Home Medications Medication Instructions Recorded Confirmed Type Medical Thc 1 dose INHALATION DAILY 04/15/21 01/04/22 History lisinopril 5 mg tablet 5 mg PO QAM #90 tab 06/23/21 01/04/22 Rx diclofenac sodium 1 % topical gel 2 g TOPICAL DAILY PRN 01/04/22 01/04/22 History hydrocodone 5 mg-acetaminophen 300 2 tab PO TID PRN 01/04/22 01/04/22 History mg tablet levothyroxine 150 mcg tablet 150 mcg PO [id number] 01/04/22 01/04/22 History (Synthroid) Patient History Medical History Anxiety Depression Lung cancer Medical marijuana use Osteoarthritis Palliative care encounter Secondary hyperparathyroidism Stage 3b chronic kidney disease Thyroid cancer Vitamin D deficiency Surgical History H/O arthroscopic knee surgery right knee H/O lymph node biopsy History of colonoscopy History of esophagogastroduodenoscopy (EGD) S/P removal of thyroid nodule S/P thyroidectomy Family History Mother Stroke Father , age 68 of an CO Myocardial infarction Other No family history of adverse response to anesthesia Social History (Updated 01/06/22 @ 08:38 by Angel Luis Echeverria MD) Smoking Status: Former smoker Tobacco Type: Cigarettes Age Started Using Tobacco: 20; Age Quit Using Tobacco: 55; Second Hand Exposure: Yes; Hx Alcohol Use: No (hx) Hx Substance Use: Yes (medical marijuana) Last Used Substance: Unknown Last Used Substance Other:: daily vape Preferred Language: [place]atian Communication Ability: Effective Parcel Carrier Required: No Beliefs That Will Affect Care: None Current Living Situation: Alone current occupational status: retired 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 Patient has no strength in right upper extremity. Patient also notices mild numbness involving right face. Physical Exam Constitutional: WD/WN, vitals as above Eyes: PERRL, conjunctivae normal, anicteric sclerae ENMT: external ear and nose normal, oropharynx normal Neck: Fullness noted in the right supraclavicular region. Musculoskeletal: 1/5 in right hand strain. Unable to abductor lift up the right arm. Skin: no rashes, warm and dry Psychiatric: A+Ox3, euthymic affect Time Spent Attending I spent 20 minutes in preparation for this consultation including reviewing all the clinical records, reviewing laboratory studies, pathology reports and imaging results. I spent 25 minutes with direct face to face interaction with the patient and/or family including performing a physical exam and answering all questions. I spent 20 minutes documenting this patient's visit.
--- NOTE | 2022-01-06 16:15 | Hospitalist Progress Note ---
Date of Service January 06, 2022 Assessment & Plan (1) Lung cancer: Plan: Poorly differentiated non-small cell lung cancer adenocarcinoma ; stage IV with metastases to right brachial plexus, right upper extremity weakness, facial numbness on the right side, EGFR tumor mutation is pending as per Dr. Chao, history of smoking, presented with malignant pleural effusion status post Pleurx catheter placement -Spoke with Dr. Chao, his oncologist, if the tumor is EGFR positive patient can be discharged on a pill which could also be effective against the possible brain metastasis with minimal medical side effects and can prolong his survival for 1 to 3 years however if that is EGFR negative patient may only respond to immunotherapy which is not effective against brain metastasis and can increase his life excessive for couple of months -Discussed with the family, his brother is his POA, we involve hospice -EGFR to marked according to Dr. Chao result will be evaluated by end of this week -MRI of the brain showed bilateral numerous lesions involving both cerebrum and cerebellum possibly a embolic infarct needs to rule out brain metastasis, patient has right upper extremity, MRI of the brain without and without contrast pending -Patient complaining of neck pain MRI of the cervical spine with and without contrast is pending #CT of lung showed Findings are concerning for malignancy, likely primary in the right lung with pleural and lymphangitic spread. Likely malignant right pleural effusion with associated pleural thickening. Multiple left nodular densities are also likely to represent metastases. Prominent lymph nodes are seen in the mediastinum, right axilla, and right subclavian stations. Possible large metastatic deposit in the medial aspect of the right proximal humerus. -#Brain MRI showed : Numerous small acute infarcts are noted within a multiple vascular territory throughout the cerebral hemispheres and cerebellum. A proximal thromboembolic source is considered. Correlation with echocardiogram recommended. -Discussed with business information consultant neurology we need to rule out metastatic disease, MRI of the brain with and without contrast is pending - Right brachial plexus MRI # partial visualization of a soft tissue mass within the short head of the biceps. This appears to encase the neurovascular bundle where visualized. Partial visualization of right axillary lymph nodes which are better seen on prior CT chest. High-grade partial-thickness undersurface tear of the supraspinatus tendon. #Status post Pleurx catheter placement - (2) Right arm weakness: Plan: Presumed to be from malignant invasion of nerves versus acute infarct, MRI of the right shoulder showed partial visualization of a soft tissue mass within the short head of the biceps. This appears to encase the neurovascular bundle where visualized. High-grade partial-thickness undersurface tear of the supraspinatus tendon. -MRI of the brain showed numerous bilateral finding most likely embolic infarct -Radiation oncology has been consulted Recommended: Palliative external beam radiation therapy to right apical lung mass to potentially help with right shoulder pain and improved strength in right upper extremity. Plan for 5 fractions. Plan: 1. CT simulation for treatment planning for radiation therapy tomorrow. Plan to start radiation therapy on . 2. Follow up on MRI of Brain with constrast. 3. Continue pain control as per primary team and palliative care medicine. - (3) Acute renal failure: Plan: -Creatinine is trending down -Ultrasound of the kidneys did not show any evidence of hydronephrosis Continue IV fluid BMP tomorrow (4) Thyroid cancer: Plan: TSH is elevated at 18, T4 is 0.98 within normal limits patient has subclinical hypothyroidism Increase the dose of Synthroid to 200 MCG daily (5) DVT prophylaxis: Plan: Continue Lovenox 40 mg daily Discussed code status with patient - Would not want CPR or cardioversion. If heart stops, he would want to be let to pass away. However, was amenable to intubation and ventilator for a few days if we thought he could return to some quality of life. Discussed with [id number] present. (6) Stroke: Plan: -Evidence of numerous small acute infarcts within the multiple vascular territory throughout the cerebral hemispheres and cerebellum possibly thromboembolic -Neurology consulted, recommended to rule out metastatic disease -Carotid Doppler/MRI of brain did not show any evidence of stenosis -Echocardiogram unremarkable ejection fraction is within normal limits, no significant valvular abnormality, no evidence of right to left shunt -LDH 70 -A1c 6.1 patient most likely is prediabetic Admission and Anticipated Discharge Date Admission Date: January 04, 2022 Subjective Mr. Fischer was evaluated in his hospital room this morning. His significant other, Milla and his brother Corrine were present. Pt continues to have a good sense of humor as his coping mechanism He had a Pleur-X drain placed yesterday. Review of Systems Review of Systems: [place] System Assessment Scale: Pain: 0/3 SOB: 1/3 Tiredness: 1/3 Lack of Appetite: 0/3 Palliative Performance Scale: 40% Constitutional: no fever Eyes: no problem reported Ear, Nose, Mouth, Throat: no problem reported Respiratory: + dyspnea; no cough Cardiovascular: no chest pain, no palpitations and no edema Gastrointestinal: no abdominal pain, no nausea, no vomiting and no diarrhea/loose stools Genitourinary: no dysuria, no urinary hesitancy or no hematuria Musculoskeletal: + problem reported (R shoulder pain); no back pain Integumentary: no rash Neurologic: no falls, no dizziness and no confusion Physical Exam Constitutional: WD/WN, vitals as above + frail appearing and comfortable; not in distress Eyes: PERRL, conjunctivae normal, anicteric sclerae EOM intact bilaterally; no conjunctival abnormality ENMT: external ear and nose normal, oropharynx normal Mouth: + dry oral mucous membranes Neck: trachea midline, no thyromegaly normal visual inspection Respiratory: normal respiratory effort, lungs clear to auscultation + labored breathing and + cough; no respiratory distress Auscultation: + diminished lung sounds Cardiovascular: RRR, no murmur, no edema Rate/Rhythm: regular rate and regular rhythm Heart Sounds: normal S1 and normal S2 Extremities: normal capillary refill Gastrointestinal (Abdomen): normal bowel sounds, soft, nontender, no hepatosplenomegaly Inspection/Auscultation: abdomen normal to inspection and normal bowel sounds; abdomen not distended Musculoskeletal: Extremities: + abnormal strength (Right arm with 0/5 strength) Skin: no rashes, warm and dry + pallor Neurologic: awake; + does not move all extremities and not confused Motor/Sensory: + abnormal movement (right arm flacid to 1/5) and + sensory deficit (No sensation in the right arm) Psychiatric: Orientation: alert, oriented x 3, oriented to person and cooperative Insight: good insight Judgement: good judgement Results & Data Results & Data ([facility]) Vital Signs (Past 12 Hours) Vital Signs Temp Pulse Pulse Resp BP Pulse Ox 01/06/22 15:14 96 H 01/06/22 14:59 37.4 C 102 H 20 102/69 95 01/06/22 11:34 36.6 C 90 20 98/60 L 98 01/06/22 08:22 36.6 C 99 H 20 96/62 L 94 01/06/22 07:44 100 H 01/06/22 04:10 36.4 C L 99 H 18 106/64 95 PG Care Time/CCT Total # of Minutes Spent Total Time Spent with Patient: Total time spent is greater than 50% in coordination of care (as documented) at patient's floor/unit and/or counseling patient: Coding Level of Care Code 59667 Subseq Hosp Care Lvl 3 Diagnoses Lung cancer C34.90 Laterality: unspecified laterality Lung location: unspecified part of lung Right arm weakness R29.898 Acute renal failure N17.9 Thyroid cancer C73 DVT prophylaxis Z29.9 Stroke I63.9 (1) Lung cancer Laterality: unspecified laterality Lung location: unspecified part of lung Qualified Code(s): C34.90 - Malignant neoplasm of unspecified part of unspecified bronchus or lung
[2022-01-06] MEDS: SODIUM CHLORIDE 0.9% 1000ML 1,000 ML IV SCH (16:49)
[2022-01-06] MEDS: ENOXAPARIN INJ 40 MG/0.4 ML SYR SQ SCH ×2 (18:05→18:14)
[2022-01-06] MEDS ORDERED: LORazepam 2 MG/1 ML VIAL IV STA ×2 (18:37→22:44)
[2022-01-07] MEDS ORDERED: GADOBUTROL 65ML VIAL IV ONE (00:36)
[2022-01-07] MEDS: SODIUM CHLORIDE 0.9% 1000ML 1,000 ML IV SCH (05:48)
[2022-01-07] MEDS: LEVOTHYROXINE SODIUM 200 MCG TABLET PO SCH (06:00)
[2022-01-07 06:21] LABS: Basophils # (auto) 0.02 K/uL (0-0.2); Basophils % (auto) 0.2 %; Eosinophils # (auto) 0.27 K/uL (0-0.5); Eosinophils % (auto) 2.3 %; Hematocrit (blood only) 28.8 % (42-52); Hemoglobin 9.5 g/dL (14.0-18.0); Immature Granulocytes # (auto) 0.09 K/uL (0.00-0.02); Immature Granulocytes % (auto) 0.8 %; Lymphocytes # (auto) 1.21 K/uL (1.2-3.4); Lymphocytes % (auto) 10.4 %; Mean Corpuscular Volume 90.9 fL (80-100); Monocytes # (auto) 1.78 K/uL (0.11-0.59); Monocytes % (auto) 15.3 %; Platelet Count 474 K/uL (130-400); RDW Standard Deviation 43.6 fL (36.4-46.3); Red Blood Count 3.17 M/uL (4.7-6.1); White Blood Count 11.67 K/uL (4.8-10.8)
[2022-01-07 06:46] LABS: Calcium 9.1 mg/dl (8.5-10.1); Creatinine Clr Calc Pharmacy 36.3 ml/min; Est GFR (African American) 40.5 ml/min; Potassium 4.7 mmol/L (3.5-5.1)
[2022-01-07] MEDS: ENOXAPARIN INJ 40 MG/0.4 ML SYR SQ SCH (07:59)
[2022-01-07] MEDS: ASPIRIN 81 MG CHEW PO SCH (08:00)
[2022-01-07] MEDS: POLYETHYLENE (MIRALAX) 17 GM PACK PO SCH (08:01)
--- NOTE | 2022-01-07 08:15 | Nephrology Progress Note ---
Date of Service January 07, 2022 Assessment & Plan (1) Acute renal failure: Plan: * ZEINA likely due to dehydration in the setting of MAYLIN inhibitor therapy * MAYLIN has been stopped * 12/31 Renal US negative for obstruction * 01/05 Urine sediment - negative for cellular casts * Kidney function is stable. Metabolic acidosis has corrected. 1L UO overnight, but patient is net 7L volume positive and requires O2 at 4L/min NC. Hold IVF today * Monitor PRP (2) Stage 3b chronic kidney disease: Plan: * Baseline Cr 1.7 - h/o microscopic hematuria. Renal impairment likely on the basis of microvascular disease. * Microscopic hematuria raises the possibility of IgA nephropathy, TBM disease or bladder CA. Note however that patient has newly diagnosed metastatic lung cancer (3) Hyponatremia: Plan: * Mild asymptomatic hyponatremia * Elevated Uosm suggestive of mild dehydration/ADH effect (4) Metabolic acidosis: Plan: * Improved following NaHCO3 administration (5) Lung cancer: Plan: * R pancoast tumor * Histology c/w poorly differentiated carcinoma thought to be of lung primary * 01/04/[address] revealed R perihilar mass obstructing multiple bronchi, small R pleural effusion, enlarged lymph nodes in mediastinum/R axilla/R subclavian region. There is also a possible large metastatic lesion in the R proximal humerus * Await Oncology input - prognosis is guarded * 01/06/22 Brain MRI - embolic infarcts or possibly tumor emboli. Short term folliow up advised Admission and Anticipated Discharge Date Admission Date: January 04, 2022 Subjective Mr. Fischer was evaluated in his hospital room this morning. His was present at bedside. Mr. Fischer is weak. His reports that he was confused this morning and did not recognize her. They are awaiting results of genetic testing to see if Mr. Fischer may be a candidate for targeted immunotherapy Review of Systems Review of Systems: Unobtainable due to cognitive status Respiratory: no cough Physical Exam Constitutional: not in distress Eyes: PERRL, conjunctivae normal, anicteric sclerae ENMT: external ear and nose normal, oropharynx normal Neck: trachea midline, no thyromegaly Respiratory: normal respiratory effort, lungs clear to auscultation Cardiovascular: RRR, no murmur, no edema Gastrointestinal (Abdomen): normal bowel sounds, soft, nontender, no hepatosplenomegaly Skin: no rashes, warm and dry Neurologic: awake Results & Data ([facility]) Vital Signs (Past 12 Hours) Vital Signs Temp Pulse Pulse Resp BP Pulse Ox 01/07/22 07:52 36.8 C 99 H 20 88/63 L 95 01/07/22 07:17 93 H 01/07/22 04:25 36.2 C L 103 H 14 103/67 94 01/06/22 23:45 37.0 C 93 H 18 98/65 L 97 01/06/22 22:18 96 H Laboratory Results Laboratory Tests 01/07/22 01/07/22 05:22 05:22 WBC 11.67 H Hgb 9.5 L Hct 28.8 L Plt Count 474 H Sodium 133 L Potassium 4.7 Chloride 101 Carbon Dioxide 23 BUN 54 H Creatinine 2.00 H Glucose 90 Calcium 9.1 PG Care Time/CCT Total # of Minutes Spent Total Time Spent with Patient: Total time spent is greater than 50% in coordination of care (as documented) at patient's floor/unit and/or counseling patient: Coding Level of Care Code 32885 Subseq Hosp Care Lvl 3 Diagnoses Acute renal failure N17.9 Stage 3b chronic kidney disease N18.3 Hyponatremia E87.1 Metabolic acidosis E87.2 Lung cancer C34.90 Laterality: unspecified laterality Lung location: unspecified part of lung (1) Lung cancer Laterality: unspecified laterality Lung location: unspecified part of lung Qualified Code(s): C34.90 - Malignant neoplasm of unspecified part of unspecified bronchus or lung
--- NOTE | 2022-01-07 09:05 | Magnetic Resonance Report ---
MRI OF THE BRAIN WITHOUT AND WITH IV CONTRAST CLINICAL HISTORY: Lung cancer. Cerebrovascular accident. Evaluate for metastatic disease. COMPARISON STUDY: MRI of the brain January 04, 2022. TECHNIQUE: Utilizing a 1.5 Kira magnet and dedicated coil, multiplanar, multiecho imaging of the br ain was performed pre and postcontrast administration. IV administration of 6.5 mL of Gadavist contr ast was uneventful. FINDINGS: Numerous foci of restricted effusion within the supratentorial and infratentorial brain are again noted. These are similar to MRI January 04, 2022. These are hypointense on the ADC map Measure up to 1.7 cm. No new foci of restricted diffusion are present. These demonstrate mild enhancement. The largest enhancing focus is an 8 mm focus within the left temp oral lobe shown on axial T1 postcontrast image . The enhancement of many of these lesions is predominantly gyral. Leptomeningeal enhancement is within the differential although considered less l ikely. There is no significant mass effect. Ventricular system is unremarkable. Basal cisterns are pa tent. There are no extra axial collections. Flow-voids for the major intracranial vessels are present . A few hypodense foci on the gradient echo sequence are chronic and may reflect hemosiderin depositi on. Orbits are unremarkable. This exam is mildly compromised by motion artifact. IMPRESSION: Numerous supratentorial and infratentorial foci of restricted diffusion, similar to MRI of January 04, 2022. These are highly suggestive of acute to subacute embolic infarcts given the degree of restricted diffusion. Patchy gyral enhancement of many of these foci can be seen in subacute infa rcts. However, coexistent metastatic disease with tumor emboli, cannot be excluded. Short-term follow -up MRI of the brain with and without contrast in one month is recommended. ACT 112: Negative or not required by law. Electronically signed by: Jeet Woody M.D. 01/07/2022 9:04 AM
--- NOTE | 2022-01-07 10:22 | Neurology Progress Note ---
Date of Service January 07, 2022 Assessment & Plan (1) Right arm weakness: (2) Progressive focal motor weakness: (3) Metastatic disease: Plan: This patient is complicated neurologically. The patient's history is consistent with progressive weakness of 1st the right upper extremity ( to a profound nature) and then in the left upper extremity and right lower extremity. In addition there are dysesthesias and numbness (as well as pain) 1st in the right upper extremity and then in the other 2 limbs. He has neck pain and shoulder pain on the right. Imaging reveals a significant mass in the right brachial plexus area which I believe is wrapping around the nerves and creating the profound right upper extremity symptoms. It is likely metastases from the lung (biopsy showed poorly differentiated adenocarcinoma. The origin is likely a right Lung. He has bon y metastasis in the ribs, left lung tumor metastasis with enlarged lymph nodes bilaterally and even A metastasis in his left pelvis echocardiogram was unremarkable and showed no source of thrombus. The MRI of the brain is consistent with stroke but probable metastasis as well. Nevertheless, the majority of the findings suggest stroke. This could be tumor emboli versus stroke secondary to a hypercoagulable state. He has no source of emboli in the heart or neck vessels. MRI of the cervical spine is consistent with some mild to moderate spinal stenosis at C5-6 from bone and disc. There is no obvious cord lesion and there is no evidence of metastasis in the cervical spine. I had an extended discussion with the patient, the patient's spouse, and Dr. Canchola in the room regarding all of these studies and his neurologic condition. recommendations: 1. I am quite concerned with full anticoagulation in this patient as this may create hemorrhage in view of his tumor burden. Nevertheless, an 81 milligram aspirin tablet daily and subcu Lovenox would be reasonable. 2. Otherwise, from a neurologic standpoint I think the wisest course of action is to treat this a cancer as best as possible. he is awaiting results to initiate immunotherapy. 3. Palliative radiation to his right shoulder / brachial plexus may help shrink the tumor and help him regain some right upper extremity function. He needs physical and occupational therapy for his limbs. Overall, I spent a total of 60 minutes with this case including review of records, review of MRI films with Dr. Woody, direct evaluation the patient bedside, and discussion of the case with the patient, his spouse, and Dr. Canchola at bedside,, including differential diagnosis and treatment options. Admission and Anticipated Discharge Date Admission Date: January 04, 2022 Subjective Patient is in pain with his right upper extremity and shoulder. Blood pressure is 88/63 with pulse of. MRI of the cervical spine showed no obvious bony or intramedullary metastases and no enhancement with contrast. There was some mild to moderate spinal stenosis at C5-6 from disc involved without cord changes. I reviewed these films with Dr. Woody. The patient had an MRI of the brain with/without contrast. I reviewed these films with Dr. Woody. Dr. Woody notes that there is some enhancement of some of these lesions but that the larger lesions are more typical of an acute stroke than metastases. Nevertheless he can seated that some of these lesions could be metastases. There is no obvious edema around these lesions and no ring enhancement. The PET scan from [facility] was reviewed and there is considerable tumor metastasis in the right lung as well as outside in the brachial plexus near the shoulder on the right. There are some metastases in the left lung, the ribs and 1 in the pelvis. Results & Data ([facility]) Vital Signs (Past 12 Hours) Vital Signs Temp Pulse Pulse Resp BP Pulse Ox 01/07/22 07:52 36.8 C 99 H 20 88/63 L 95 01/07/22 07:17 93 H 01/07/22 04:25 36.2 C L 103 H 14 103/67 94 01/06/22 23:45 37.0 C 93 H 18 98/65 L 97 01/06/22 22:18 96 H PG Care Time/CCT Total # of Minutes Spent Total Time Spent with Patient: Total time spent is greater than 50% in coordination of care (as documented) at patient's floor/unit and/or counseling patient: Coding Level of Care Code 86681 Subseq Hosp Care Lvl 3 Diagnoses Right arm weakness R29.898 Progressive focal motor weakness R53.1 Metastatic disease C79.51 Area of secondary neoplastic involvement: bone Time Spent (min) 60 (1) Metastatic disease Area of secondary neoplastic involvement: bone Qualified Code(s): C79.51 - Secondary malignant neoplasm of bone
--- NOTE | 2022-01-07 10:52 | Magnetic Resonance Report ---
MR cervical spine wo/w con HISTORY: 61 years-old Male mets, lung ca, acute neck pain in a patient with metastatic lung cancer. Clinical concern for osseous metastasis. COMPARISON: Brain MRI 01/06/2022, Chest CT 01/04/2022. TECHNIQUE: Multiplanar multisequence MRI of the cervical spine was obtained both with and without the use of 6.5 cc Gadavist. FINDINGS: Motion degraded exam. Right apical pulmonary mass with extrapleural extension and cortical destructio n of the adjacent right first and second ribs is better seen on the comparison chest CT. There are bravo ggested layering pleural effusions bilaterally. The acute intracranial findings are better seen on th e comparison brain MRI. There is a 2.0 cm area of increased STIR uptake noted within the left paraspinal tissues of the upper thoracic spine on image 15 series 8, not definitively seen on the postcontrast images. There is no a cute fracture, subluxation, endplate erosion or marrow replacing lesion within the vertebral bodies o f the cervical spine. Signal within the cervical and imaged thoracic spinal cord appears normal. Sandro on degraded postcontrast images are essentially nondiagnostic. C2-C3 is not imaged on the axial serie s. No oblique images were submitted. C2-C3: Uncovertebral spurring with moderate facet arthrosis. The special procedures technologist did not include thi s level on the axial series. No definite central canal or neural foraminal narrowing. C3-C4: Mild uncovertebral spurring and facet arthrosis. No definite central canal or neural foraminal narrowing. C4-C5: Mild intervertebral disc space narrowing with uncovertebral spurring and tiny posterior disc o steophyte complex. Mild to moderate facet arthrosis. No central canal or neural foraminal narrowing. C5-C6: Moderate intervertebral disc space narrowing with Modic type I and II endplate degeneration. P osterior annular disc bulge with uncovertebral spurring and small posterior disc osteophyte complex. Moderate facet arthrosis. Mild central canal stenosis with AP dimension of the thecal sac measuring 7 mm resulting in slight deformity of the anterior and posterior cervical spinal cord. The right neura l foramen appears patent. There is a least mild left foraminal stenosis. C6-C7: Uncovertebral spurring with mild facet arthrosis. No central canal narrowing. The right neural foramen appears patent. There is at least mild left foraminal stenosis. C7-T1: Mild uncovertebral hypertrophy flattens the ventral thecal sac. Mild facet arthrosis. The cent ral canal is patent. Mild foraminal narrowing is suggested bilaterally. IMPRESSION: 1. Motion degraded exam. 2. Partially imaged mass of the right lung apex with extrapleural extension and erosion/cortical dest ruction of the adjacent ribs redemonstrated suspicious for a Pancoast tumor. 3. No evidence of osseous metastatic disease involving the cervical spine. 4. Normal signal of the cervical and imaged thoracic spinal cord. 5. Discogenic degeneration as above is most pronounced at C5-C6 where there is mild central canal hailey nosis. ACT 112: Negative or not required by law. The above report was generated using voice recognition software. It may contain grammatical, syntax o r spelling errors. Dictated: 01/07/2022 9:46 AM Transcribed: 01/07/2022 10:15 AM Tali [id number] [email or web address] Electronically signed by: Tim Ryan M.D. 01/07/2022 10:50 AM
--- NOTE | 2022-01-07 10:52 | Pulmonology Progress Note ---
Date of Service January 07, 2022 Assessment & Plan (1) Lung cancer: Laterality: unspecified laterality Lung location: unspecified part of lung Qualified Code(s): C34.90 - Malignant neoplasm of unspecified part of unspecified bronchus or lung (2) Pleural effusion, malignant: (3) Abnormal CT scan of lung: Plan: Attending: Dr. Gifford Impression: 61-year-old male with reported history of advanced lung cancer with malignant pleural effusion. He is status post Pleurx catheter placement 01/05/2022. Pleurx last drained 01/06/2022 for 1 L at 2200 Recommendations: 1. Malignant pleural effusion: Patient with significant improvement to breathing and comfort after draining 1 L fluid last night by a Pleurx catheter. We will plan on draining every 24 hours at the request of the patient and family. We will limit drainage to 1 L. 2. Advanced lung cancer: Recommend coordinating care with the patient's outpatient oncologist. We are still awaiting EGRF results. Dr. Antonio Chao from [facility]ology is following 3. Continue oxygen titrated to keep saturations at or above 88%. 4. Radiation oncology consultated. Radiation plan to alleviate pain and arm and increased motion. 5. Palliative care has been consulted. Discussed case with hospitalist Dr. Canchola. At this time, plan on having sutures removed from the Pleurx catheter insertion on January 13, 2022. Drain Pleurx catheter every day or as tolerated Management of the patient's other medical issues is deferred to the hospitalist service. At this time, pulmonary service will sign off. Please feel free to call with any further questions or need of clarification. Plan discussed with Dr. Canchola. Admission and Anticipated Discharge Date Admission Date: January 04, 2022 Subjective Attending: Dr. Gifford Patient seen and examined in room 289. Family is present at bedside. Patient has significant shortness of breath last night and they did drainage of the Pleurx catheter and evacuated approximately 1 L. Patient has significant improvement after that. At this time, patient is being considered for hospice placement. We will plan on draining Pleurx catheter daily with a maximum of 1 L evacuated each time. Patient is agreeable to this plan. Patient currently denies any pain at the Pleurx insertion site unless palpated. He has no fever or chills. His cough is improved. He has no other acute pulmonary complaints. Review of Systems Review of Systems: A total of 10 systems was reviewed and is negative other than as listed in the HPI Physical Exam Physical Exam: GENERAL : No acute distress. Patient somewhat lethargic but responds to questions appropriately EYES: No icterus, gaze conjugate NOSE: No evidence of epistaxis MOUTH: No lesions or candidiasis NECK: Supple LUNGS: Patient with decreased breath sounds on the right. He has no specific adventitious breath sounds. No appreciation of bronchospasm. HEART: Regular, rate controlled ABDOMEN: Soft, NT, ND, BS Present EXTREMITIES: No LE edema, pedal pulses intact and equal bilaterally. NEURO: A&OX3 Results & Data Results & Data ([facility]) Vital Signs (Past 12 Hours) Vital Signs Temp Pulse Pulse Resp BP Pulse Ox 01/07/22 07:52 36.8 C 99 H 20 88/63 L 95 01/07/22 07:17 93 H 01/07/22 04:25 36.2 C L 103 H 14 103/67 94 01/06/22 23:45 37.0 C 93 H 18 98/65 L 97 Critical Care Results & Data Vital Signs (Past 12 Hours) Vital Signs Temp Pulse Pulse Resp BP Pulse Ox 01/07/22 07:52 36.8 C 99 H 20 88/63 L 95 01/07/22 07:17 93 H 01/07/22 04:25 36.2 C L 103 H 14 103/67 94 01/06/22 23:45 37.0 C 93 H 18 98/65 L 97 Lab & Micro Results (Past 24 Hours) RBC 3.17 M/uL (4.7-6.1) L 01/07/22 WBC 11.67 K/uL (4.8-10.8) H 01/07/22 Hgb 9.5 g/dL (14.0-18.0) L 01/07/22 Hct 28.8 % (42-52) L 01/07/22 MCV 90.9 fL (80-100) 01/07/22 MCH 30.0 pg (25-34) 01/07/22 MCHC 33.0 g/dL (32-36) 01/07/22 RDW Standard Deviation 43.6 fL (36.4-46.3) 01/07/22 RDW Coefficient of Variation 13.0 % (11.5-14.5) 01/07/22 Plt Count 474 K/uL (130-400) H 01/07/22 MPV 9.0 fL (7.4-10.4) 01/07/22 Neutrophils (%) (Auto) 71.0 % 01/07/22 Lymphocytes (%) (Auto) 10.4 % 01/07/22 Monocytes # (Auto) 1.78 K/uL (0.11-0.59) H 01/07/22 Eosinophils # (Auto) 0.27 K/uL (0-0.5) 01/07/22 Immature Granulocyte % (Auto) 0.8 % 01/07/22 Neutrophils # (Auto) 8.30 K/uL (1.4-6.5) H 01/07/22 Lymphocytes # (Auto) 1.21 K/uL (1.2-3.4) 01/07/22 Monocytes # (Auto) 1.78 K/uL (0.11-0.59) H 01/07/22 Eosinophils # (Auto) 0.27 K/uL (0-0.5) 01/07/22 Basophils # (Auto) 0.02 K/uL (0-0.2) 01/07/22 Immature Granulocyte # (Auto) 0.09 K/uL (0.00-0.02) H 01/07/22 Na 133 mmol/L (136-145) L 01/07/22 K 4.7 mmol/L (3.5-5.1) 01/07/22 Cl 101 mmol/L (98-107) 01/07/22 CO2 23 mmol/L (21-32) 01/07/22 Anion Gap 9 (3-11) 01/07/22 BUN 54 mg/dl (6-23) H 01/07/22 Creatinine 2.00 mg/dl (0.6-1.4) H 01/07/22 Estimated GFR ( Amer) 40.5 ml/min 01/07/22 Estimated GFR (Non-Af Amer) 35.0 ml/min 01/07/22 BUN/Creatinine Ratio 27.0 (10-20) H 01/07/22 Glu 90 mg/dl (70-99(Fasting)) 01/07/22 Ca 9.1 mg/dl (8.5-10.1) 01/07/22 Calcium Level 9.1 mg/dl (8.5-10.1) 01/07/22 05:22 01/07/22 Microbiology 01/05/22 Unknown Acid Fast Bacilli Smear - Final Pleural Fluid 01/04/22 16:11 Aerobic Blood Culture - Preliminary Blood No growth in Aerobic bottle after 48 hours. Anaerobic Blood Culture - Preliminary No growth in Anaerobic bottle after 48 hours. 01/04/22 15:57 Aerobic Blood Culture - Preliminary Blood No growth in Aerobic bottle after 48 hours. Anaerobic Blood Culture - Preliminary No growth in Anaerobic bottle after 48 hours. 01/05/22 Unknown Gram Stain - Final Pleural Fluid Aerobic and Anaerobic Culture - Preliminary No growth to date. Diagnostic Findings (Past 24 Hours) Cervical Spine MRI 01/06/22 10:23 MR cervical spine wo/w con HISTORY: 61 years-old Male mets, lung ca, acute neck pain in a patient with metastatic lung cancer. Clinical concern for osseous metastasis. COMPARISON: Brain MRI 01/06/2022, Chest CT 01/04/2022. TECHNIQUE: Multiplanar multisequence MRI of the cervical spine was obtained both with and without the use of 6.5 cc Gadavist. FINDINGS: Motion degraded exam. Right apical pulmonary mass with extrapleural extension and cortical destruction of the adjacent right first and second ribs is better seen on the comparison chest CT. There are suggested layering pleural effusions bilaterally. The acute intracranial findings are better seen on the comparison brain MRI. There is a 2.0 cm area of increased STIR uptake noted within the left paraspinal tissues of the upper thoracic spine on image 15 series 8, not definitively seen on the postcontrast images. There is no acute fracture, subluxation, endplate erosion or marrow replacing lesion within the vertebral bodies of the cervical spine. Signal within the cervical and imaged thoracic spinal cord appears normal. Motion degraded postcontrast images are essentially nondiagnostic. C2-C3 is not imaged on the axial series. No oblique images were submitted. C2-C3: Uncovertebral spurring with moderate facet arthrosis. The learning technologist did not include this level on the axial series. No definite central canal or neural foraminal narrowing. C3-C4: Mild uncovertebral spurring and facet arthrosis. No definite central canal or neural foraminal narrowing. C4-C5: Mild intervertebral disc space narrowing with uncovertebral spurring and tiny posterior disc osteophyte complex. Mild to moderate facet arthrosis. No central canal or neural foraminal narrowing. C5-C6: Moderate intervertebral disc space narrowing with Modic type I and II endplate degeneration. Posterior annular disc bulge with uncovertebral spurring and small posterior disc osteophyte complex. Moderate facet arthrosis. Mild central canal stenosis with AP dimension of the thecal sac measuring 7 mm resulting in slight deformity of the anterior and posterior cervical spinal cord. The right neural foramen appears patent. There is a least mild left foraminal stenosis. C6-C7: Uncovertebral spurring with mild facet arthrosis. No central canal narrowing. The right neural foramen appears patent. There is at least mild left foraminal stenosis. C7-T1: Mild uncovertebral hypertrophy flattens the ventral thecal sac. Mild facet arthrosis. The central canal is patent. Mild foraminal narrowing is suggested bilaterally. IMPRESSION: 1. Motion degraded exam. 2. Partially imaged mass of the right lung apex with extrapleural extension and erosion/cortical destruction of the adjacent ribs redemonstrated suspicious for a Pancoast tumor. 3. No evidence of osseous metastatic disease involving the cervical spine. 4. Normal signal of the cervical and imaged thoracic spinal cord. 5. Discogenic degeneration as above is most pronounced at C5-C6 where there is mild central canal stenosis. ACT 112: Negative or not required by law. The above report was generated using voice recognition software. It may contain grammatical, syntax or spelling errors. Dictated: 01/07/2022 9:46 AM Transcribed: 01/07/2022 10:15 AM Tali [id number] [email or web address] Electronically signed by: Tim Ryan M.D. 01/07/2022 10:50 AM Brain MRI 01/06/22 16:03 MRI OF THE BRAIN WITHOUT AND WITH IV CONTRAST CLINICAL HISTORY: Lung cancer. Cerebrovascular accident. Evaluate for metastatic disease. COMPARISON STUDY: MRI of the brain January 04, 2022. TECHNIQUE: Utilizing a 1.5 Kira magnet and dedicated coil, multiplanar, multiecho imaging of the brain was performed pre and postcontrast administration. IV administration of 6.5 mL of Gadavist contrast was uneventful. FINDINGS: Numerous foci of restricted effusion within the supratentorial and infratentorial brain are again noted. These are similar to MRI January 04, 2022. These are hypointense on the ADC map Measure up to 1.7 cm. No new foci of restricted diffusion are present. These demonstrate mild enhancement. The largest enhancing focus is an 8 mm focus within the left temporal lobe shown on axial T1 postcontrast image . The enhancement of many of these lesions is predominantly gyral. Leptomeningeal enhancement is within the differential although considered less likely. There is no significant mass effect. Ventricular system is unremarkable. Basal cisterns are patent. There are no extra axial collections. Flow-voids for the major intracranial vessels are present. A few hypodense foci on the gradient echo sequence are chronic and may reflect hemosiderin deposition. Orbits are unremarkable. This exam is mildly compromised by motion artifact. IMPRESSION: Numerous supratentorial and infratentorial foci of restricted diffusion, similar to MRI of January 04, 2022. These are highly suggestive of acute to subacute embolic infarcts given the degree of restricted diffusion. Patchy gyral enhancement of many of these foci can be seen in subacute infarcts. However, coexistent metastatic disease with tumor emboli, cannot be excluded. Short-term follow-up MRI of the brain with and without contrast in one month is recommended. ACT 112: Negative or not required by law. Electronically signed by: Jeet Woody M.D. 01/07/2022 9:04 AM I & O Totals 24 Hours 01/06/22 01/07/22 01/08/22 06:59 06:59 06:59 Intake Total 2553.333 / 2553.333 2350 / 2350 400 / 400 Output Total 75 / 75 1000 / 1000 Balance 2478.333 / 2478.333 1350 / 1350 400 / 400 Cumulative 01/04/22 10:25 thru 01/07/22 10:10 Intake Total 8308.333 Output Total 1075 Balance 7233.333 RT Ventilator Mngmt (Last Documented) Ventilator Ordered Settings Respiratory Rate 20 01/07/22 07:52 Ventilator - PT Measurements Respiratory Rate 20 PG Care Time/CCT Total # of Minutes Spent Total Time Spent with Patient: Total time spent is greater than 50% in coordination of care (as documented) at patient's floor/unit and/or counseling patient: Coding Level of Care Code 67952 Subseq Hosp Care Lvl 2 Diagnoses Lung cancer C34.90 Laterality: unspecified laterality Lung location: unspecified part of lung Pleural effusion, malignant J91.[address] scan of lung R91.8 Time Spent (min) 30 Comment In the room with the patient and the patient's family
[2022-01-07] MEDS: oxyCODONE/ACETAMINOPHEN 10-325 TAB PO PRN (11:20)
--- NOTE | 2022-01-07 13:12 | Palliative Care Progress Note ---
Date of Service January 07, 2022 Assessment & Plan (1) Generalized pain: Plan: Doing better on 10 mg oxycodone at this point. Continue prn dosing for now and monitor. Will change order from percocet to oxycodone for easier titration. (2) Palliative care encounter: Plan: I talked with Demarcus's brother and sister in the room. They are still adjusting to the idea that he has terminal cancer. He has accepted this and is focused on the things that he wants to complete. He has been clear that he does not want CPR if needed. His brother, Corrine, has been less comfortable with this but wants to honor Demarcus's wishes. We talked about CPR in someone who is frail with advanced cancer would be less than 5% chance for successful outcome in the sense of him returning to independent function. We also discussed that not doing CPR does not mean that we would not provide any other treatment that is indicated and acceptable to Demarcus. They are anticipating palliative radiation to start tomorrow and are hopeful for immunotherapy. Corrine tells me that he has spoken with Dr. Chao at [facility] and they would be interested in treatment. We discussed that treatment would not be consistent with hospital level care. However, he could certainly transition to hospice at a later time if he'd like. Corrine asked questions about what to expect and what would happen at [facility]'s dying time which were addressed. Discussed with Dr. Mazariegos and case management. (3) Lung cancer: (4) Metastatic disease: Admission and Anticipated Discharge Date Admission Date: January 04, 2022 Subjective Weak. Awake. Complains of generalized discomfort but says no to pain. Has had oxycodone 35mg total in last 24 hours. Going for radiation sim today. Review of Systems Review of Systems: [place] Symptom Assessment Scale Pain 1/3 Dyspnea 0/3 Anxiety 0/3 Fatigue 2/3 Palliative Performance Score 30% Physical Exam Constitutional: weak, no acute distress ENMT: Mouth: oral mucous membranes not dry Respiratory: normal respiratory effort; no labored breathing Results & Data ([facility]) Vital Signs (Past 12 Hours) Vital Signs Temp Pulse Pulse Resp BP Pulse Ox 01/07/22 11:04 97.3 F L 96 H 20 98/65 L 96 01/07/22 07:52 98.2 F 99 H 20 88/63 L 95 03/30/22 07:17 93 H 01/07/22 04:25 97.2 F L 103 H 14 103/67 94 PG Care Time/CCT Total # of Minutes Spent Total Time Spent: 45 Total Time Spent with Patient: Total time spent is greater than 50% in coordination of care (as documented) at patient's floor/unit and/or counseling patient:symptom management, goals of care, hospice, coordination of care, family education and support Coding Level of Care Code 30312 Subseq Hosp Care Lvl 3 Diagnoses Generalized pain R52 Palliative care encounter Z51.5 Lung cancer C34.90 Laterality: unspecified laterality Lung location: unspecified part of lung Metastatic disease C79.51 Area of secondary neoplastic involvement: bone (1) Lung cancer Laterality: unspecified laterality Lung location: unspecified part of lung Qualified Code(s): C34.90 - Malignant neoplasm of unspecified part of unspecified bronchus or lung (2) Metastatic disease Area of secondary neoplastic involvement: bone Qualified Code(s): C79.51 - Secondary malignant neoplasm of bone
--- NOTE | 2022-01-07 14:51 | Hospitalist Progress Note ---
Date of Service January 07, 2022 Assessment & Plan (1) Lung cancer: Plan: Non-small cell lung cancer, metastatic carcinoma, malignant pleural effusion, bilateral Bilateral lung cancer, mets to ribs, left pelvis, right brachial plexus involvement, and possible tumor emboli/stroke pathology on MRI Breathing improved following Pleurx catheter placement and fluid drainage. Pulmonary consulted. Appreciate recommendations. Continue Pleurx drainage every 24 hours, limit to 1 L Pending E GRF results from DR. Chao, patient being followed by Dr. Chao with [facility] oncology. If appropriate for immunotherapy patient would like to pursue this and consider hospice based on progression, if not would like to pursue hospice Discussed with patient and family, patient is weak and does not have 24-hour care at home, lives alone. Will need placement. Discussed with case management SPO2 goal greater than 88% Patient pending palliative radiation for brachial plexus mass, undergoing simulation today with treatment tomorrow. Palliative care following, appreciate recommendations. Discussed CODE STATUS, DNR/DNI at this time May remove Pleurx catheter sutures January 13. See metastatic disease below (2) Metastatic disease: Plan: MRI reviewed with neurology. Multiple lesions noted in the brain bilaterally, consistent with stroke. No evidence of cardiac arrhythmia or neck vessel origin, DDx includes tumor emboli versus hypercoagulability of malignancy Defer full anticoagulation in this patient due to risk of hemorrhage We will continue with 81 mg daily aspirin, prophylactic Lovenox dosing No acute interventions for above, continue treatment of primary malignancy as mentioned above Appreciate care and recommendations (3) Thyroid cancer: Plan: History of thyroid cancer Continue Synthroid 200 mcg (4) Progressive focal motor weakness: Plan: Brachial plexopathy as above Admission and Anticipated Discharge Date Admission Date: January 04, 2022 Subjective Patient is seen at the bedside with family present. Continues to have right arm pain and weakness. No fever/chills. No nausea/vomiting. No difficulty breathing. Interview case with patient and caregivers present. In the event of a cardiac arrest patient would not want CPR/intubation to prolong or resuscitate him, CODE STATUS updated to DNR/DNI. She is aware that he is advanced lung cancer, bilateral, with concern for potential tumor emboli. Patient would like to await results of the receptor testing to determine if he is a candidate for immunotherapy for palliative improvement. If this is possible, he would want to pursue this and then reconsider hospice pending progression. If this is unlikely to be of benefit based on tumor pathology then he would like to continue with hospice goals of care. In discussing with patient his caregivers he is very weak, does not have 24-hour care at home, and family numbers are not local/he lives alone. They report that in his current state of health going home will not be an option for him and would need to pursue placement needs. They are aware that without treatment prognosis is likely on the scale of weeks. Is tolerating the Pleurx well with symptomatic improvement of his breathing. Review of Systems Review of Systems: 10 point ROS negative except as noted in HPI Physical Exam Physical Exam: General: Appears ill, frail. Somnolent, arouses easily and answers questions appropriately. Oriented to name, year, and place HEENT: Atraumatic, normocephalic. Vision and hearing grossly intact Pulm: C Pleurx in place. Diminished on the right, otherwise moderate air movement without wheezes/rhonchi no increase in work of breathing. No respiratory distress. Cardiac: Regular, tachycardic, -mrg. Radial pulses intact and symmetrical. Abdominal: Nontender, nondistended, soft. BS present. Extremities: Right upper extremity weakness with decreased sensation to soft touch compared to the left. Results & Data Results & Data ([facility]) Vital Signs (Past 12 Hours) Vital Signs Temp Pulse Pulse Resp BP Pulse Ox 01/07/22 11:04 36.3 C L 96 H 20 98/65 L 96 01/07/22 07:52 36.8 C 99 H 20 88/63 L 95 01/07/22 07:17 93 H 01/07/22 04:25 36.2 C L 103 H 14 103/67 94 PG Care Time/CCT Total # of Minutes Spent Total Time Spent with Patient: Total time spent is greater than 50% in coordination of care (as documented) at patient's floor/unit and/or counseling patient: Coding Level of Care Code 36679 Subseq Hosp Care Lvl 3 Diagnoses Lung cancer C34.90 Laterality: unspecified laterality Lung location: unspecified part of lung Metastatic disease C79.51 Area of secondary neoplastic involvement: bone Thyroid cancer C73 Progressive focal motor weakness R53.1 (1) Lung cancer Laterality: unspecified laterality Lung location: unspecified part of lung Qualified Code(s): C34.90 - Malignant neoplasm of unspecified part of unspecified bronchus or lung (2) Metastatic disease Area of secondary neoplastic involvement: bone Qualified Code(s): C79.51 - Secondary malignant neoplasm of bone
[2022-01-07] MEDS: oxyCODONE HCL IR 5 MG TAB (IMMEDIATE RELEASE) PO PRN ×2 (16:14→23:26)
[2022-01-08] MEDS: LEVOTHYROXINE SODIUM 200 MCG TABLET PO SCH (05:41)
[2022-01-08 06:18] LABS: Basophils # (auto) 0.02 K/uL (0-0.2); Basophils % (auto) 0.2 %; Eosinophils # (auto) 0.27 K/uL (0-0.5); Eosinophils % (auto) 2.4 %; Hematocrit (blood only) 28.9 % (42-52); Hemoglobin 9.5 g/dL (14.0-18.0); Immature Granulocytes # (auto) 0.11 K/uL (0.00-0.02); Lymphocytes # (auto) 1.48 K/uL (1.2-3.4); Mean Corpuscular Hemoglobin 30.3 pg (25-34); Mean Corpuscular Hgb Conc 32.9 g/dL (32-36); Mean Platelet Volume 8.7 fL (7.4-10.4); Monocytes # (auto) 1.67 K/uL (0.11-0.59); Monocytes % (auto) 14.7 %; Neutrophils # (auto) 7.82 K/uL (1.4-6.5); Neutrophils % (auto) 68.7 %; Platelet Count 490 K/uL (130-400); RDW Coefficient of Variation 13.1 % (11.5-14.5); RDW Standard Deviation 44.1 fL (36.4-46.3); Red Blood Count 3.14 M/uL (4.7-6.1); White Blood Count 11.37 K/uL (4.8-10.8)
[2022-01-08 06:35] LABS: BUN Creatinine Ratio 25.7 (10-20); Calcium 9.5 mg/dl (8.5-10.1); Creatinine Clr Calc Pharmacy 41.4 ml/min; Est GFR (African American) 47.7 ml/min; Est GFR (Non-African American) 41.1 ml/min; Potassium 4.9 mmol/L (3.5-5.1)
[2022-01-08] MEDS: POLYETHYLENE (MIRALAX) 17 GM PACK PO SCH (08:10)
[2022-01-08] MEDS: ASPIRIN 81 MG CHEW PO SCH (08:10)
--- NOTE | 2022-01-08 08:10 | Neurology Progress Note ---
Date of Service January 08, 2022 Assessment & Plan (1) Right arm weakness: (2) Progressive focal motor weakness: (3) Metastatic disease: Plan: This patient is complicated neurologically. The patient's history is consistent with progressive weakness of 1st the right upper extremity ( to a profound nature) and then in the left upper extremity and right lower extremity. In addition there are dysesthesias and numbness (as well as pain) 1st in the right upper extremity and then in the other 2 limbs. He has neck pain and shoulder pain on the right. Imaging reveals a significant mass in the right brachial plexus area which I believe is wrapping around the nerves and creating the profound right upper extremity symptoms. It is likely metastases from the lung (biopsy showed poorly differentiated adenocarcinoma. The origin is likely a right Lung. He has bon y metastasis in the ribs, left lung tumor metastasis with enlarged lymph nodes bilaterally and even metastasis in his pelvis echocardiogram was unremarkable and showed no source of thrombus. The MRI of the brain is consistent with stroke but probable metastasis as well. Nevertheless, the majority of the findings suggest stroke. This could be tumor emboli versus stroke secondary to a hypercoagulable state. He has no source of emboli in the heart or neck vessels. MRI of the cervical spine is consistent with some mild to moderate spinal stenosis at C5-6 from bone and disc. There is no obvious cord lesion and there is no evidence of metastasis in the cervical spine. He is fairly stable neurologically over the last several days. recommendations: 1. I am quite concerned with full anticoagulation in this patient as this may create hemorrhage in view of his tumor burden. Nevertheless, an 81 milligram aspirin tablet daily and sq Lovenox would be reasonable. I do not have anything more specific to treat his [employer] stroke-like lesions. 2. From a neurologic standpoint I think the wisest course of action is to treat this a cancer as best as possible. he is awaiting results to initiate immunotherapy. 3. Palliative radiation to his right shoulder / brachial plexus may help shrink the tumor and help him regain some right upper extremity function. He needs physical and occupational therapy for his limbs. 4. Otherwise, I have no further neurologic testing or treatment recommendations to make at this time. Please contact me if I can be of further assistance on this case. Admission and Anticipated Discharge Date Admission Date: January 04, 2022 Subjective patient has some pain in his right shoulder but otherwise feels about the same. Nursing reports no events overnight and he is to start some radiation therapy to his right shoulder today. Blood pressure is 90/64. Pulse is 103. CBC shows anemia and Chem profile shows elevated BUN and creatinine as before Results & Data ([facility]) Vital Signs (Past 12 Hours) Vital Signs Temp Pulse Pulse Resp BP Pulse Ox 01/08/22 07:43 36.8 C 103 H 18 99/64 L 94 01/08/22 07:20 96 H 01/08/22 03:21 36.7 C 99 H 18 95/67 L 97 01/08/22 00:27 97 H Exam (Neuro) Physical Exam: he is awake and alert. Speech is reasonable without obvious aphasia or dysarthria, but his voice is soft. He seems to be in a reasonable mood and is cooperative/ pleasant. Pupils are equal 3-4 millimeters bilaterally reactive to light. He has no ptosis. There is no facial droop and tongue is. He has no abnormal involuntary movements. The right upper extremity is flaccid being 0/5. The left upper extremity and left lower extremity are essentially 5/5. Right lower extremity is 4/. This is consistent previous. He has pain with movement and palpation of the shoulder. PG Care Time/CCT Total # of Minutes Spent Total Time Spent with Patient: Total time spent is greater than 50% in coordination of care (as documented) at patient's floor/unit and/or counseling patient: Coding Level of Care Code 89640 Subseq Hosp Care Lvl 3 Diagnoses Right arm weakness R29.898 Progressive focal motor weakness R53.1 Metastatic disease C79.51 Area of secondary neoplastic involvement: bone (1) Metastatic disease Area of secondary neoplastic involvement: bone Qualified Code(s): C79.51 - Secondary malignant neoplasm of bone
[2022-01-08] MEDS: oxyCODONE HCL IR 5 MG TAB (IMMEDIATE RELEASE) PO PRN ×4 (08:11→22:03)
[2022-01-08] MEDS: ENOXAPARIN INJ 40 MG/0.4 ML SYR SQ SCH (08:13)
--- NOTE | 2022-01-08 09:33 | Nephrology Progress Note ---
Date of Service January 08, 2022 Assessment & Plan (1) Acute renal failure: Plan: * ZEINA likely due to dehydration in the setting of MAYLIN inhibitor therapy * MAYLIN has been stopped * 12/31 Renal US negative for obstruction * 01/05 Urine sediment - negative for cellular casts * Kidney function has recovered, electrolyte balance is acceptable. No further Nephrology evaluation needed at this time. Will sign off. Please call if further Nephrology assistance is needed (2) Stage 3b chronic kidney disease: Plan: * Baseline Cr 1.7 - h/o microscopic hematuria. Renal impairment likely on the basis of microvascular disease. * Microscopic hematuria raises the possibility of IgA nephropathy, TBM disease or bladder CA. Note however that patient has newly diagnosed metastatic lung cancer (3) Lung cancer: Plan: * R pancoast tumor * Histology c/w poorly differentiated carcinoma thought to be of lung primary * 01/04/[address] revealed R perihilar mass obstructing multiple bronchi, small R pleural effusion, enlarged lymph nodes in mediastinum/R axilla/R subclavian region. There is also a possible large metastatic lesion in the R proximal humerus * Await Oncology input - prognosis is guarded * 01/06/22 Brain MRI - embolic infarcts or possibly tumor emboli. Short term follow up advised Admission and Anticipated Discharge Date Admission Date: January 04, 2022 Subjective Mr. Fischer was evaluated in his hospital room this morning. His was present at bedside. Mr. Fischer's family questions whether Pleurx catheter can be drained q12 hrs to improve patient's respiratory comfort Review of Systems Constitutional: no fever Eyes: no problem reported Ear, Nose, Mouth, Throat: no problem reported Respiratory: no cough Cardiovascular: no chest pain, no palpitations and no edema Gastrointestinal: no abdominal pain, no nausea, no vomiting and no diarrhea/loose stools Genitourinary: no dysuria, no urinary hesitancy or no hematuria Musculoskeletal: + problem reported (R shoulder pain); no back pain Integumentary: no rash Neurologic: no falls, no dizziness and no confusion Physical Exam Constitutional: not in distress Eyes: PERRL, conjunctivae normal, anicteric sclerae ENMT: external ear and nose normal, oropharynx normal Neck: trachea midline, no thyromegaly Respiratory: normal respiratory effort, lungs clear to auscultation Cardiovascular: RRR, no murmur, no edema Gastrointestinal (Abdomen): normal bowel sounds, soft, nontender, no hepatosplenomegaly Skin: no rashes, warm and dry Neurologic: awake Results & Data ([facility]) Vital Signs (Past 12 Hours) Vital Signs Temp Pulse Pulse Resp BP Pulse Ox 01/08/22 07:43 36.8 C 103 H 18 99/64 L 94 01/08/22 07:20 96 H 01/08/22 03:21 36.7 C 99 H 18 95/67 L 97 01/08/22 00:27 97 H Laboratory Results Laboratory Tests 01/08/22 01/08/22 05:40 05:40 WBC 11.37 H Hgb 9.5 L Hct 28.9 L Sodium 135 L Potassium 4.9 Chloride 103 Carbon Dioxide 24 BUN 45 H Creatinine 1.75 H Glucose 96 PG Care Time/CCT Total # of Minutes Spent Total Time Spent with Patient: Total time spent is greater than 50% in coordination of care (as documented) at patient's floor/unit and/or counseling patient: Coding Level of Care Code 71932 Subseq Hosp Care Lvl 3 Diagnoses Acute renal failure N17.9 Stage 3b chronic kidney disease N18.3 Lung cancer C34.90 Laterality: unspecified laterality Lung location: unspecified part of lung (1) Lung cancer Laterality: unspecified laterality Lung location: unspecified part of lung Qualified Code(s): C34.90 - Malignant neoplasm of unspecified part of unspecified bronchus or lung
--- NOTE | 2022-01-08 10:05 | XRay Report ---
XR chest 1V portable CLINICAL HISTORY: Right pleural fluid, increased hypoxia COMPARISON STUDY: Chest CT January 04, 2022. Chest radiograph January 05, 2022. FINDINGS: Note is again made of a right apical mass with associated erosion of the right first and se cond ribs. A right pleural catheter is in place. There is no pneumothorax. Small to moderate right pl eural effusion is present. Extensive right lung airspace opacity is noted with diminished right lung aeration. Reticulonodular interstitial thickening within the left lung is present. This is similar to prior exam. Small left pleural effusion. IMPRESSION: 1. Right pleural catheter in place. No pneumothorax. Small to moderate right pleural effusion. 2. Redemonstration of a right apical mass with associated rib erosion and extensive right lung airspa ce opacity, increased since prior exam. 3. Reticulonodular interstitial thickening within the left lung. This favors metastatic disease. Supe rimposed pulmonary edema may be present. ACT 112: Negative or not required by law. Electronically signed by: Jeet Woody M.D. 01/08/2022 10:02 AM
--- NOTE | 2022-01-08 11:49 | Palliative Care Progress Note ---
Date of Service January 08, 2022 Assessment & Plan (1) Generalized pain: Plan: Discussed long acting opioid or more routine dosing for steady state coverage. It's not clear what his opioid requirement is at this point. Will add range for dosing and monitor for 24 hours. I encouraged him to let someone know if he is having even moderate pain. Discussed premedication prior to palliative radiation today with RN. (2) Constipation: Plan: Started on daily miralax by hospitalist. (3) Palliative care encounter: Plan: I talked with Demarcus, his SO Milla, and his sister. They are hopeful that palliative radiation will improve his pain. They are also anxiously awaiting results on tumor marker for immunotherapy. They are hopeful that this may improve his functional status but understand that overall his prognosis concerning. They are comfortable with transitioning to hospice if goals are not met with immunotherapy. Plan for discharge to SNF with rehab. Discussed with Dr. Mazariegos. (4) Lung cancer: (5) Metastatic disease: Admission and Anticipated Discharge Date Admission Date: January 04, 2022 Subjective Tolerated sim yesterday. Has been having right shoulder pain and increased shortness of breath today. Has had 30mg oxycodone since 4pm yesterday. Family concerned that sometimes he waits until pain is severe to ask for medication. Review of Systems Review of Systems: [place] Symptom Assessment Scale Pain 2/3 Dyspnea 2/3 Anxiety 0/3 Fatigue 2/3 Palliative Performance Score 30% LBM? Physical Exam Constitutional: + ill appearing Respiratory: + uses accessory muscles Skin: warm and dry Results & Data ([facility]) Vital Signs (Past 12 Hours) Vital Signs Temp Pulse Pulse Resp BP Pulse Ox 01/08/22 07:43 98.2 F 103 H 18 99/64 L 94 01/08/22 07:20 96 H 01/08/22 03:21 98.1 F 99 H 18 95/67 L 97 01/08/22 00:27 97 H PG Care Time/CCT Total # of Minutes Spent Total Time Spent: 35 Total Time Spent with Patient: Total time spent is greater than 50% in coordination of care (as documented) at patient's floor/unit and/or counseling patient:symptom management, goals of care, coordination of care Coding Level of Care Code 61420 Subseq Hosp Care Lvl 3 Diagnoses Generalized pain R52 Palliative care encounter Z51.5 Lung cancer C34.90 Laterality: unspecified laterality Lung location: unspecified part of lung Metastatic disease C79.51 Area of secondary neoplastic involvement: bone Constipation K59.00 (1) Lung cancer Laterality: unspecified laterality Lung location: unspecified part of lung Qualified Code(s): C34.90 - Malignant neoplasm of unspecified part of unspecified bronchus or lung (2) Metastatic disease Area of secondary neoplastic involvement: bone Qualified Code(s): C79.51 - Secondary malignant neoplasm of bone
--- NOTE | 2022-01-08 13:46 | Hospitalist Progress Note ---
Date of Service January 08, 2022 Assessment & Plan (1) Lung cancer: Plan: Non-small cell lung cancer, metastatic carcinoma, malignant pleural effusion, bilateral Bilateral lung cancer, mets to ribs, left pelvis, right brachial plexus involvement, and possible tumor emboli/stroke pathology on MRI Breathing improved following Pleurx catheter placement and fluid drainage. Pulmonary consulted. Appreciate recommendation Pending E GRF results from DR. Chao, patient being followed by Dr. Chao with [facility] oncology. If appropriate for immunotherapy patient would like to pursue this and consider hospice based on progression, if not would like to pursue hospice Discussed with patient and family, patient is weak and does not have 24-hour care at home, lives alone. Will need placement. Discussed with case management SPO2 goal greater than 88% Patient pending palliative radiation for brachial plexus mass, undergoing simulation today with treatment tomorrow. Palliative care following, appreciate recommendations. Discussed CODE STATUS, DNR/DNI at this time May remove Pleurx catheter sutures January 13. See metastatic disease below Patient does have improvement following removal of fluid, this benefit tends to diminish starting around 12 hours and is again increasingly short of breath which improves at next removal. Patient would like to know if this can be done twice a day for comfort. Discussed with pulm, placed to waterseal with Ping kit. Continuing to pursue placement at [facility], placement likely not available till Wednesday. We will continue current care and await results to guide potential immunotherapy. While awaiting immunotherapy patient would like to continue p.o. treatment for pain with comfort in mind. Palliative on board, appreciate narcotic adjustments (2) Metastatic disease: Plan: MRI reviewed with neurology. Multiple lesions noted in the brain bilaterally, consistent with stroke. No evidence of cardiac arrhythmia or neck vessel origin, DDx includes tumor emboli versus hypercoagulability of malignancy Defer full anticoagulation in this patient due to risk of hemorrhage We will continue with 81 mg daily aspirin, prophylactic Lovenox dosing. Consider discontinuing these if decision to transition to hospice is pursued No acute interventions for above, continue treatment of primary malignancy as mentioned above Appreciate care and recommendations (3) Thyroid cancer: Plan: History of thyroid cancer Continue Synthroid 200 mcg (4) Progressive focal motor weakness: Plan: Brachial plexopathy as above Admission and Anticipated Discharge Date Admission Date: January 04, 2022 Subjective Seen the bedside this morning with family present. Patient reports his breathing is improved following thoracentesis, they have taken off 1 L periodically. He does notice that he starts to get short of breath again at the end of the day, and very short of breath which then again improves by the time his next fluid removal is due. Would like to know if it would be possible to do this twice daily instead. Is aware of the risks of high-volume removal. They are pursuing placement at [facility] at this time, continue to await receptor results. Otherwise no change, no fever/chills/chest pain/chest pressure. Continues to have some pain in his right arm and shoulder. Simulation scan yesterday went well. Review of Systems Review of Systems: All systems reviewed & are unremarkable except as noted in Subjective Physical Exam Physical Exam: General: Appears ill, frail. Somnolent, arouses easily and answers questions appropriately. Oriented to name, year, and place HEENT: Atraumatic, normocephalic. Vision and hearing grossly intact Pulm: C Pleurx in place. Diminished on the right, otherwise moderate air movement without wheezes/rhonchi no increase in work of breathing. Basilar crackles, late rales no respiratory distress. Cardiac: Regular, tachycardic, -mrg. Radial pulses intact and symmetrical. Abdominal: Nontender, nondistended, soft. BS present. Extremities: Right upper extremity weakness with decreased sensation to soft touch compared to the left. Results & Data Results & Data ([facility]) Vital Signs (Past 12 Hours) Vital Signs Temp Pulse Pulse Resp BP BP Pulse Ox 01/08/22 12:00 36.3 C L 89 18 92/62 L 96 01/08/22 07:43 36.8 C 103 H 18 99/64 L 94 01/08/22 07:20 96 H 01/08/22 03:21 36.7 C 99 H 18 95/67 L 97 PG Care Time/CCT Total # of Minutes Spent Total Time Spent with Patient: Total time spent is greater than 50% in coordination of care (as documented) at patient's floor/unit and/or counseling patient: Coding Level of Care Code 97366 Subseq Hosp Care Lvl 2 Diagnoses Lung cancer C34.90 Laterality: unspecified laterality Lung location: unspecified part of lung Metastatic disease C79.51 Area of secondary neoplastic involvement: bone Thyroid cancer C73 Progressive focal motor weakness R53.1 (1) Metastatic disease Area of secondary neoplastic involvement: bone Qualified Code(s): C79.51 - Secondary malignant neoplasm of bone (2) Lung cancer Laterality: unspecified laterality Lung location: unspecified part of lung Qualified Code(s): C34.90 - Malignant neoplasm of unspecified part of unspecified bronchus or lung
--- NOTE | 2022-01-08 13:50 | Pulmonology Progress Note ---
Date of Service January 08, 2022 Assessment & Plan (1) Lung cancer: Laterality: unspecified laterality Lung location: unspecified part of lung Qualified Code(s): C34.90 - Malignant neoplasm of unspecified part of unspecified bronchus or lung (2) Pleural effusion, malignant: (3) Abnormal CT scan of lung: Plan: Attending: Dr. Gifford Impression: 61-year-old male with reported history of advanced lung cancer with malignant pleural effusion. He is status post Pleurx catheter placement 01/05/2022. Pleurx drain daily for 1 L. Recommendations: 1. Malignant pleural effusion: Patient continues to have persistent pleural effusion. Patient was drained again for 1 L last night. Very brief period of relief. Chest x-ray today shows persistent pleural effusion. Will use a Pleurx catheter to it application support analyst to Ping Pleur-evac and drain to gravity with waterseal. This was placed at 1300 today. There is no evidence of air leak. Patient was draining serosanguineous fluid freely. 2. Advanced lung cancer: Recommend coordinating care with the patient's outpatient oncologist. We are still awaiting EGRF results. Dr. Antonio Chao from [facility] oncology is following 3. Continue oxygen titrated to keep saturations between 88 and 92%. 4. Radiation oncology consulted. Patient was mapped yesterday. Anticipate radiation beginning today x5 cycles. Further management per radiation oncology and the hospitalist team. 5. Palliative care has been consulted. Discussed case with hospitalist Dr. Canchola again this morning. At this time, plan on having sutures removed from the Pleurx catheter insertion on January 13, 2022. Pleurx catheter has been hooked up to Ping Pleur-evac to waterseal. There is free-flowing fluid at this time. We will continue with drainage unless patient has increased shortness of breath or complains of pain. In the event that a new set up is needed, equipment needed is listed below. Pleur-evac set up: * Ping Pleur-evac * Thora vent suction tubing kit * Pleurx catheter access kit * These can all be accessed in the intensive care par level. Now that the patient has been placed to gravity drainage with waterseal, pulmonary service will follow for another day to manage. Please call with any questions regarding set up or drainage questions. Plan discussed with Dr. Canchola. Admission and Anticipated Discharge Date Admission Date: January 04, 2022 Subjective Attending: Dr. Gifford Patient seen and examined at bedside at the request of the hospitalist as well as the family. Patient continues to have shortness of breath and persistent reaccumulation of right pleural effusion. Patient had a Pleurx catheter placed on Wednesday. We have drained this every day for least a liter. Patient and family note that improved breathing is noted after drainage of the Pleurx catheter for approximately 3 to 4 hours and then worsens. Chest x-ray obtained this morning shows reaccumulation of the fluid within the last 12 hours. Patient denies any fever, chills, sweats, rigors. He has no chest pain. There is less pain at the Pleurx insertion site. Patient has persistent complaints of shortness of breath but nothing acute. Review of Systems Review of Systems: A total of 10 systems was reviewed and is negative other than as listed above in the HPI Physical Exam Physical Exam: GENERAL : No acute distress. Patient in a left lateral recumbent position. EYES: No icterus, gaze conjugate NOSE: No evidence of epistaxis. Nasal cannula is in place MOUTH: No lesions or candidiasis. Mucosa dry NECK: Supple LUNGS: Decreased breath sounds on the right side. There are persistent Rales bilaterally. No rhonchi. No appreciation of bronchospasm. HEART: Regular, rate controlled ABDOMEN: Soft, NT, ND, BS Present EXTREMITIES: No LE edema, pedal pulses intact and equal bilaterally NEURO: A&OX3. Patient appears very weak. Results & Data Results & Data ([facility]) Vital Signs (Past 12 Hours) Vital Signs Temp Pulse Pulse Resp BP BP Pulse Ox 01/08/22 12:00 36.3 C L 89 18 92/62 L 96 01/08/22 07:43 36.8 C 103 H 18 99/64 L 94 01/08/22 07:20 96 H 01/08/22 03:21 36.7 C 99 H 18 95/67 L 97 Critical Care Results & Data Vital Signs (Past 12 Hours) Vital Signs Temp Pulse Pulse Resp BP BP Pulse Ox 01/08/22 12:00 36.3 C L 89 18 92/62 L 96 01/08/22 07:43 36.8 C 103 H 18 99/64 L 94 01/08/22 07:20 96 H 01/08/22 03:21 36.7 C 99 H 18 95/67 L 97 Lab & Micro Results (Past 24 Hours) RBC 3.14 M/uL (4.7-6.1) L 01/08/22 WBC 11.37 K/uL (4.8-10.8) H 01/08/22 Hgb 9.5 g/dL (14.0-18.0) L 01/08/22 Hct 28.9 % (42-52) L 01/08/22 MCV 92.0 fL (80-100) 01/08/22 MCH 30.3 pg (25-34) 01/08/22 MCHC 32.9 g/dL (32-36) 01/08/22 RDW Standard Deviation 44.1 fL (36.4-46.3) 01/08/22 RDW Coefficient of Variation 13.1 % (11.5-14.5) 01/08/22 Plt Count 490 K/uL (130-400) H 01/08/22 MPV 8.7 fL (7.4-10.4) 01/08/22 Neutrophils (%) (Auto) 68.7 % 01/08/22 Lymphocytes (%) (Auto) 13.0 % 01/08/22 Monocytes # (Auto) 1.67 K/uL (0.11-0.59) H 01/08/22 Eosinophils # (Auto) 0.27 K/uL (0-0.5) 01/08/22 Immature Granulocyte % (Auto) 1.0 % 01/08/22 Neutrophils # (Auto) 7.82 K/uL (1.4-6.5) H 01/08/22 Lymphocytes # (Auto) 1.48 K/uL (1.2-3.4) 01/08/22 Monocytes # (Auto) 1.67 K/uL (0.11-0.59) H 01/08/22 Eosinophils # (Auto) 0.27 K/uL (0-0.5) 01/08/22 Basophils # (Auto) 0.02 K/uL (0-0.2) 01/08/22 Immature Granulocyte # (Auto) 0.11 K/uL (0.00-0.02) H 01/08/22 Na 135 mmol/L (136-145) L 01/08/22 K 4.9 mmol/L (3.5-5.1) 01/08/22 Cl 103 mmol/L (98-107) 01/08/22 CO2 24 mmol/L (21-32) 01/08/22 Anion Gap 8 (3-11) 01/08/22 BUN 45 mg/dl (6-23) H 01/08/22 Creatinine 1.75 mg/dl (0.6-1.4) H 01/08/22 Estimated GFR ( Amer) 47.7 ml/min 01/08/22 Estimated GFR (Non-Af Amer) 41.1 ml/min 01/08/22 BUN/Creatinine Ratio 25.7 (10-20) H 01/08/22 Glu 96 mg/dl (70-99(Fasting)) 01/08/22 Ca 9.5 mg/dl (8.5-10.1) 01/08/22 Calcium Level 9.5 mg/dl (8.5-10.1) 01/08/22 05:40 01/08/22 Diagnostic Findings (Past 24 Hours) Chest X-Ray 01/08/22 09:07 XR chest 1V portable CLINICAL HISTORY: Right pleural fluid, increased hypoxia COMPARISON STUDY: Chest CT January 04, 2022. Chest radiograph January 05, 2022. FINDINGS: Note is again made of a right apical mass with associated erosion of the right first and second ribs. A right pleural catheter is in place. There is no pneumothorax. Small to moderate right pleural effusion is present. Extensive right lung airspace opacity is noted with diminished right lung aeration. Reticulonodular interstitial thickening within the left lung is present. This is similar to prior exam. Small left pleural effusion. IMPRESSION: 1. Right pleural catheter in place. No pneumothorax. Small to moderate right pleural effusion. 2. Redemonstration of a right apical mass with associated rib erosion and extensive right lung airspace opacity, increased since prior exam. 3. Reticulonodular interstitial thickening within the left lung. This favors metastatic disease. Superimposed pulmonary edema may be present. ACT 112: Negative or not required by law. Electronically signed by: Jeet Woody M.D. 01/08/2022 10:02 AM I & O Totals 24 Hours 01/07/22 01/08/22 01/09/22 06:59 06:59 06:59 Intake Total 2350 / 2350 980 / 980 Output Total 1000 / 1000 1150 / 1150 Balance 1350 / 1350 -170 / -170 Cumulative 01/04/22 10:25 thru 01/08/22 06:05 Intake Total 8888.333 Output Total 2225 Balance 6663.333 RT Ventilator Mngmt (Last Documented) Ventilator Ordered Settings Respiratory Rate 18 01/08/22 12:00 Ventilator - PT Measurements Respiratory Rate 18 PG Care Time/CCT Total # of Minutes Spent Total Time Spent with Patient: Total time spent is greater than 50% in coordination of care (as documented) at patient's floor/unit and/or counseling patient: 40 minutes including discussion with the family and set up of Pleur-evac system. Coding Level of Care Code 44398 Subseq Hosp Care Lvl 3 Diagnoses Lung cancer C34.90 Laterality: unspecified laterality Lung location: unspecified part of lung Pleural effusion, malignant J91.[address] scan of lung R91.8 Time Spent (min) 40
[2022-01-08] MEDS: MELATONIN 3 MG TAB PO PRN (22:03)
[2022-01-09] MEDS: oxyCODONE HCL IR 5 MG TAB (IMMEDIATE RELEASE) PO PRN ×2 (02:11→11:55)
[2022-01-09] MEDS: LEVOTHYROXINE SODIUM 200 MCG TABLET PO SCH (06:30)
[2022-01-09 07:28] LABS: BUN Creatinine Ratio 20.7 (10-20); Creatinine Clr Calc Pharmacy 31.3 ml/min; Est GFR (African American) 33.9 ml/min; Est GFR (Non-African American) 29.2 ml/min; Potassium 5.4 mmol/L (3.5-5.1)
[2022-01-09] MEDS ORDERED: SODIUM CHLORIDE 0.9% 1000ML 250 ML IV ONE (07:50)
[2022-01-09] MEDS ORDERED: SODIUM CHLORIDE 0.9% 1000ML 1,000 ML IV SCH ×2 (08:00→11:15)
[2022-01-09] MEDS: ASPIRIN 81 MG CHEW PO SCH (08:00)
[2022-01-09] MEDS: POLYETHYLENE (MIRALAX) 17 GM PACK PO SCH (08:00)
--- NOTE | 2022-01-09 08:15 | XRay Report ---
XR chest 1V portable HISTORY: Persistent right pleural effusion COMPARISON: Chest 01/08/2022. FINDINGS: Right basilar pleural catheter remains unchanged in position. Small right basilar pneumotho rax has increased in size. The right pleural effusion hasn't was completely resolved. Dense consolida tion/mass within the right upper lobe persists. Multiple bilateral irregular pulmonary nodules consis tent with metastatic disease are again noted.. The heart is normal in size. Right upper rib erosion a gain noted. IMPRESSION: 1. Right basilar pleural catheter remains unchanged in position. There is a small right basilar pneum othorax which is new from the prior study. The right pleural effusion has almost completely resolved in the interval. 2. Large right upper lobe mass with destructive changes of the right upper ribs and multiple bilatera l pulmonary nodules are again noted. ACT 112: Negative or not required by law. Electronically signed by: Valdo Reddy M.D. 01/09/2022 8:13 AM
[2022-01-09] MEDS: ENOXAPARIN INJ 40 MG/0.4 ML SYR SQ SCH (09:25)
--- NOTE | 2022-01-09 10:57 | Pulmonology Progress Note ---
Date of Service January 09, 2022 Assessment & Plan (1) Lung cancer: Laterality: unspecified laterality Lung location: unspecified part of lung Qualified Code(s): C34.90 - Malignant neoplasm of unspecified part of unspecified bronchus or lung (2) Pleural effusion, malignant: (3) Abnormal CT scan of lung: Plan: Impression: 61-year-old male with advanced lung cancer with malignant pleural effusion. He is status post Pleurx catheter placement 01/05/2022. His tube was attached to waterseal yesterday and is put out about 2.7 L overnight. Is unclear if he is clinically better but family seems to think he appears more comfortable Recommendations: 1. Malignant pleural effusion: We will continue drainage to the Pleur-evac underwater seal while the patient is in the hospital. Once final plans are made for ultimate disposition, case management can arrange to have the Pleurx drained either daily or twice a day given his output. 2. Advanced lung cancer: Per oncology 3. Continue oxygen titrated to keep saturations between 88 and 92%. 4. Radiation therapy to the right shoulder per radiation oncology 5. Continue palliative care. 6. The patient's x-ray now demonstrates complete consolidation of the right upper lobe. Review of his CT scan from 01/04/2022 demonstrated encasement of the right upper lobe bronchus and I suspect that that bronchus is now completely compressed/occluded by extrinsic tumor. No role for bronchoscopy or radiation therapy at this point in time. Given the tumor encasement of the bronchus intermedius, the patient is at risk of complete right lung atelectasis at some point if the tumor progresses. Again there is no endobronchial therapy available for this. Please call with any questions regarding set up or drainage questions. Admission and Anticipated Discharge Date Admission Date: January 04, 2022 Subjective Patient seen and examined. Multiple family members at bedside. The patient reports that his breathing is about the same although the family believes that he is less short of breath with continuous drainage of the tunneled pleural catheter. He is not having any uncontrolled pain. They are awaiting evaluation with hospice. He denies any significant sputum production and continues to have a nonproductive cough. He has not had any hemoptysis. Review of Systems Review of Systems: All systems reviewed & are unremarkable except as noted in Subjective Physical Exam Constitutional: WD/WN, vitals as above Neck: trachea midline, no thyromegaly Respiratory: normal respiratory effort, lungs clear to auscultation no respiratory distress Cardiovascular: RRR, no murmur, no edema Gastrointestinal (Abdomen): Inspection/Auscultation: abdomen normal to inspection; abdomen not distended Musculoskeletal: Extremities: + abnormal strength (Right arm with 0/5 strength) Skin: no rashes, warm and dry Neurologic: awake; + does not move all extremities Motor/Sensory: + sensory deficit (No sensation in the right arm) Psychiatric: Orientation: alert, oriented to person and cooperative Results & Data Results & Data ([facility]) Vital Signs (Past 12 Hours) Vital Signs Temp Pulse Pulse Resp BP BP Pulse Ox 01/09/22 08:00 36.7 C 95 H 18 95/60 L 95 01/09/22 07:27 98 H 01/09/22 03:00 36.5 C 96 H 18 96/63 L 98 01/08/22 23:47 37.0 C 99 H 18 102/62 96 01/08/22 23:30 99 H Critical Care Results & Data Vital Signs (Past 12 Hours) Vital Signs Temp Pulse Pulse Resp BP BP Pulse Ox 01/09/22 08:00 36.7 C 95 H 18 95/60 L 95 01/09/22 07:27 98 H 01/09/22 03:00 36.5 C 96 H 18 96/63 L 98 01/08/22 23:47 37.0 C 99 H 18 102/62 96 01/08/22 23:30 99 H Lab & Micro Results (Past 24 Hours) No Data to Display Na 134 mmol/L (136-145) L 01/09/22 K 5.4 mmol/L (3.5-5.1) H 01/09/22 Cl 102 mmol/L (98-107) 01/09/22 CO2 23 mmol/L (21-32) 01/09/22 Anion Gap 9 (3-11) 01/09/22 BUN 48 mg/dl (6-23) H 01/09/22 Creatinine 2.32 mg/dl (0.6-1.4) H 01/09/22 Estimated GFR ( Amer) 33.9 ml/min 01/09/22 Estimated GFR (Non-Af Amer) 29.2 ml/min 01/09/22 BUN/Creatinine Ratio 20.7 (10-20) H 01/09/22 Glu 110 mg/dl (70-99(Fasting)) H 01/09/22 Ca 10.0 mg/dl (8.5-10.1) 01/09/22 Calcium Level 10.0 mg/dl (8.5-10.1) 01/09/22 06:02 01/09/22 Diagnostic Findings (Past 24 Hours) Chest X-Ray 01/09/22 07:00 XR chest 1V portable HISTORY: Persistent right pleural effusion COMPARISON: Chest 01/08/2022. FINDINGS: Right basilar pleural catheter remains unchanged in position. Small right basilar pneumothorax has increased in size. The right pleural effusion hasn't was completely resolved. Dense consolidation/mass within the right upper lobe persists. Multiple bilateral irregular pulmonary nodules consistent with metastatic disease are again noted.. The heart is normal in size. Right upper rib erosion again noted. IMPRESSION: 1. Right basilar pleural catheter remains unchanged in position. There is a small right basilar pneumothorax which is new from the prior study. The right pleural effusion has almost completely resolved in the interval. 2. Large right upper lobe mass with destructive changes of the right upper ribs and multiple bilateral pulmonary nodules are again noted. ACT 112: Negative or not required by law. Electronically signed by: Valdo Reddy M.D. 01/09/2022 8:13 AM I & O Totals 24 Hours 01/08/22 01/09/22 01/10/22 06:59 06:59 06:59 Intake Total 980 / 980 300 / 300 250 / 250 Output Total 1150 / 1150 1725 / 1725 Balance -170 / -170 -1425 / -1425 250 / 250 Cumulative 01/04/22 10:25 thru 01/09/22 08:23 Intake Total 9438.333 Output Total 3950 Balance 5488.333 RT Ventilator Mngmt (Last Documented) Ventilator Ordered Settings Respiratory Rate 18 01/09/22 08:00 Ventilator - PT Measurements Respiratory Rate 18 PG Care Time/CCT Total # of Minutes Spent Total Time Spent with Patient: Total time spent is greater than 50% in coordination of care (as documented) at patient's floor/unit and/or counseling patient: Coding Level of Care Code 79054 Subseq Hosp Care Lvl 3 Diagnoses Lung cancer C34.90 Laterality: unspecified laterality Lung location: unspecified part of lung Pleural effusion, malignant J91.[address] scan of lung R91.8
--- NOTE | 2022-01-09 11:04 | Nephrology Progress Note ---
Date of Service January 09, 2022 Assessment & Plan (1) Acute renal failure: Plan: * ZEINA likely due to dehydration in the setting of MAYLIN inhibitor therapy * MAYLIN has been stopped * 12/31 Renal US negative for obstruction * 01/05 Urine sediment - negative for cellular casts * Patient is clinically volume contracted. Will provide 1L 0.9 NS * Mild hyperkalemia noted. Will provide one dose po Velt[place] and change diet to low K * Recheck PRP in am (2) Stage 3b chronic kidney disease: Plan: * Baseline Cr 1.7 - h/o microscopic hematuria. Renal impairment likely on the basis of microvascular disease. * Microscopic hematuria raises the possibility of IgA nephropathy, TBM disease or bladder CA. Note however that patient has newly diagnosed metastatic lung cancer (3) Lung cancer: Plan: * R pancoast tumor * Histology c/w poorly differentiated carcinoma thought to be of lung primary * 01/04/[address] revealed R perihilar mass obstructing multiple bronchi, small R pleural effusion, enlarged lymph nodes in mediastinum/R axilla/R subclavian region. There is also a possible large metastatic lesion in the R proximal humerus * 01/06/22 Brain MRI - embolic infarcts or possibly tumor emboli. Short term follow up advised * Patient is scheduled for 5 fractions of palliative external beam radiation therapy to R apical lung mass Admission and Anticipated Discharge Date Admission Date: January 04, 2022 Subjective I was asked to reassess Mr. Fischer by his family this morning. His breathing has improved following conversion of his Pleurx catheter to continuous drainage. He was net -1400 cc overnight. He c/o fatigue Review of Systems Constitutional: no fever Eyes: no problem reported Ear, Nose, Mouth, Throat: no problem reported Respiratory: no cough Cardiovascular: no chest pain, no palpitations and no edema Gastrointestinal: no abdominal pain, no nausea, no vomiting and no diarrhea/loose stools Genitourinary: no dysuria, no urinary hesitancy or no hematuria Musculoskeletal: + problem reported (R shoulder pain); no back pain Integumentary: no rash Neurologic: no falls, no dizziness and no confusion Physical Exam Constitutional: not in distress Eyes: PERRL, conjunctivae normal, anicteric sclerae ENMT: external ear and nose normal, oropharynx normal Neck: trachea midline, no thyromegaly Respiratory: normal respiratory effort, lungs clear to auscultation Cardiovascular: RRR, no murmur, no edema Gastrointestinal (Abdomen): normal bowel sounds, soft, nontender, no hepatosplenomegaly Skin: no rashes, warm and dry Neurologic: awake Results & Data ([facility]) Vital Signs (Past 12 Hours) Vital Signs Temp Pulse Pulse Resp BP BP Pulse Ox 01/09/22 08:00 36.7 C 95 H 18 95/60 L 95 01/09/22 07:27 98 H 01/09/22 03:00 36.5 C 96 H 18 96/63 L 98 01/08/22 23:47 37.0 C 99 H 18 102/62 96 01/08/22 23:30 99 H Laboratory Results Laboratory Tests 01/09/22 06:02 Sodium 134 L Potassium 5.4 H Chloride 102 Carbon Dioxide 23 BUN 48 H Creatinine 2.32 H D Glucose 110 H Calcium 10.0 PG Care Time/CCT Total # of Minutes Spent Total Time Spent with Patient: Total time spent is greater than 50% in coordination of care (as documented) at patient's floor/unit and/or counseling patient: Coding Level of Care Code 71919 Subseq Hosp Care Lvl 3 Diagnoses Acute renal failure N17.9 Stage 3b chronic kidney disease N18.3 Lung cancer C34.90 Laterality: unspecified laterality Lung location: unspecified part of lung (1) Lung cancer Laterality: unspecified laterality Lung location: unspecified part of lung Qualified Code(s): C34.90 - Malignant neoplasm of unspecified part of unspecified bronchus or lung
[2022-01-09] MEDS: PATIROMER CALCIUM SORBITEX 8.4 GM PACK PO ONE ×2 (11:37→11:57)
[2022-01-09] MEDS: fentaNYL 25 MCG/HR TDSY TD SCH (12:23)
--- NOTE | 2022-01-09 12:30 | Palliative Care Progress Note ---
Date of Service January 09, 2022 Assessment & Plan (1) Generalized pain: Plan: with likely neuropathic component, given brachial plexus involvement. Discussed possible use of gabapentin. However, at this point, I think steady state analgesia is a priority and avoiding sedation as much as possible. Given bump in creatinine and constipation, I think fentanyl would be the best LA opioid for him. Conversion to 25mcg patch based on opioid need in last 24 hours. Continue prn oxycodone. Premedicate for treatment. Discussed with RN and Dr. Mazariegos. (2) Constipation: Plan: on daily miralax day 2. Monitor with opioid rotation. Could consider miralax bid if needed (3) Palliative care encounter: (4) Lung cancer: (5) Metastatic disease: Admission and Anticipated Discharge Date Admission Date: January 04, 2022 Subjective Awake. Reports tolerating radiation treatment well yesterday. He has had 55mg oxycodone in last 24 hours. He did describe the pain as "shooting" at one point. Corrine was concerned that Demarcus had persistent pain despite max dose oxycodone last night. Still no BM. Review of Systems Review of Systems: Cutler Symptom Assessment Scale Pain 1/3 currently Dyspnea 0/3 Nausea 0/3 Drowsiness 1/3 Palliative Performance Score 30% Physical Exam Constitutional: weak, ill appearing ENMT: Mouth: oral mucous membranes not dry Respiratory: normal respiratory effort; no labored breathing Results & Data ([facility]) Vital Signs (Past 12 Hours) Vital Signs Temp Pulse Pulse Resp BP Pulse Ox 01/09/22 11:31 97.9 F 94 H 18 92/60 L 96 01/09/22 08:00 98.1 F 95 H 18 95/60 L 95 01/09/22 07:27 98 H 01/09/22 03:00 97.7 F 96 H 18 96/63 L 98 PG Care Time/CCT Total # of Minutes Spent Total Time Spent with Patient: Total time spent is greater than 50% in coordination of care (as documented) at patient's floor/unit and/or counseling patient: Coding Level of Care Code 99128 Subseq Hosp Care Lvl 2 Diagnoses Generalized pain R52 Constipation K59.00 Palliative care encounter Z51.5 Lung cancer C34.90 Laterality: unspecified laterality Lung location: unspecified part of lung Metastatic disease C79.51 Area of secondary neoplastic involvement: bone (1) Lung cancer Laterality: unspecified laterality Lung location: unspecified part of lung Qualified Code(s): C34.90 - Malignant neoplasm of unspecified part of unspecified bronchus or lung (2) Metastatic disease Area of secondary neoplastic involvement: bone Qualified Code(s): C79.51 - Secondary malignant neoplasm of bone
[2022-01-09 12:57] LABS: BUN Creatinine Ratio 20.8 (10-20); Calcium 9.6 mg/dl (8.5-10.1); Creatinine Clr Calc Pharmacy 32.8 ml/min; Est GFR (African American) 35.9 ml/min; Potassium 4.9 mmol/L (3.5-5.1)
--- NOTE | 2022-01-09 13:51 | Hospitalist Progress Note ---
Date of Service January 09, 2022 Assessment & Plan (1) Lung cancer: Plan: Non-small cell lung cancer, metastatic carcinoma, malignant pleural effusion, bilateral Bilateral lung cancer, mets to ribs, left pelvis, right brachial plexus involvement, and possible tumor emboli/stroke pathology on MRI Breathing improved following Pleurx catheter placement and fluid drainage. Pulmonary consulted. Appreciate recommendation Pending EGRF results from DR. Chao, patient being followed by Dr. Chao with [facility] oncology. If appropriate for immunotherapy patient would like to pursue this and consider hospice based on progression, if not would like to pursue hospice Discussed with patient and family, patient is weak and does not have 24-hour care at home, lives alone. Will need placement. Discussed with case management SPO2 goal greater than 88% Patient pending palliative radiation for brachial plexus mass, undergoing simulation today with treatment tomorrow. Palliative care following, appreciate recommendations. Discussed CODE STATUS, DNR/DNI at this time May remove Pleurx catheter sutures January 13. See metastatic disease below Patient does have improvement following removal of fluid, this benefit tends to diminish starting around 12 hours and is again increasingly short of breath which improves at next removal. Patient requested increased frequency for comfort Discussed with pulm, placed to waterseal with Ping kit. Continuing to pursue placement at [facility], placement likely not available till Wednesday. We will continue current care and await results to guide potential immunotherapy. CXR with right upper lobe consolidation, reviewed by pulmonary. Suspected encasement of bronchus/compression by tumor with no role for bronchoscopy. While awaiting immunotherapy patient would like to continue p.o. treatment for pain with comfort in mind. Palliative on board, appreciate narcotic adjustments . Patient on fentanyl patch today, agree especially in the setting of ZEINA/renal impaired 01/09: Did have 1.7 L total output gradually to waterseal, between this and moderately decreased p.o. patient is clinically hypovolemic with uptrending creatinine/ZEINA and hyperkalemia today. Patient does report he felt he had symptomatic improvement with this being placed to gravity compared to the daily draw previously management as below. Anticipate palliative radiation therapy today (2) Metastatic disease: Plan: MRI reviewed with neurology. Multiple lesions noted in the brain bilaterally, consistent with stroke. No evidence of cardiac arrhythmia or neck vessel origin, DDx includes tumor emboli versus hypercoagulability of malignancy Defer full anticoagulation in this patient due to risk of hemorrhage We will continue with 81 mg daily aspirin, prophylactic Lovenox dosing. Consider discontinuing these if decision to transition to hospice is pursued No acute interventions for above, continue treatment of primary malignancy as mentioned above Appreciate care and recommendations (3) Thyroid cancer: Plan: History of thyroid cancer Continue Synthroid 200 mcg (4) ZEINA (acute kidney injury): Plan: Creatinine acutely elevated from baseline of approximately 1.61.75 to 2.32. Clinically hypovolemic, intravascularly depleted in the setting of increased drainage from Ping to gravity and impaired p.o. intake. Received maintenance fluid and small bolus this morning, followed by 1 L repeat. Seen by nephrology who also added 1 dose of p.o. Veltassa. Appreciate recommendations. Repeat creatinine downtrending to 2.21, potassium 4.9 Admission patient was on lisinopril, this was previously held for hypotension (5) Progressive focal motor weakness: Plan: Brachial plexopathy as above (6) Hyperkalemia: Admission and Anticipated Discharge Date Admission Date: January 04, 2022 Subjective ` Seen at bedside this morning. Patient feels clinically improved from yesterday, and reports his breathing was better overnight and feels much more comfortable at this area. Otherwise no change, continued pain in his right neck and shoulder. Discussed ZEINA/hyperkalemia with patient who is in agreement with treatment below Review of Systems Review of Systems: All systems reviewed & are unremarkable except as noted in Subjective Physical Exam Physical Exam: General: Appears ill, frail. Awake, well oriented at time of visit. Alert. HEENT: Atraumatic, normocephalic. Vision and hearing grossly intact. Mucous membranes tacky/dry. Pulm: r Pleurx in place, draining to gravity Diminished on the right, otherwise moderate air movement without wheezes/rhonchi no increase in work of breathing. Basilar crackles, late rales no respiratory distress. Cardiac: Regular, tachycardic, -mrg. Radial pulses intact and symmetrical. Abdominal: Nontender, nondistended, soft. BS present. Extremities: Right upper extremity weakness with decreased sensation to soft touch compared to the left persists Results & Data Results & Data ([facility]) Vital Signs (Past 12 Hours) Vital Signs Temp Pulse Pulse Resp BP Pulse Ox 01/09/22 11:31 36.6 C 94 H 18 92/60 L 96 01/09/22 08:00 36.7 C 95 H 18 95/60 L 95 01/09/22 07:27 98 H 01/09/22 03:00 36.5 C 96 H 18 96/63 L 98 PG Care Time/CCT Total # of Minutes Spent Total Time Spent with Patient: Total time spent is greater than 50% in coordination of care (as documented) at patient's floor/unit and/or counseling patient: Coding Level of Care Code 03378 Subseq Hosp Care Lvl 3 Diagnoses Lung cancer C34.90 Laterality: unspecified laterality Lung location: unspecified part of lung Metastatic disease C79.51 Area of secondary neoplastic involvement: bone Thyroid cancer C73 Progressive focal motor weakness R53.1 Hyperkalemia E87.5 ZEINA (acute kidney injury) N17.9 (1) Lung cancer Laterality: unspecified laterality Lung location: unspecified part of lung Qualified Code(s): C34.90 - Malignant neoplasm of unspecified part of unspecified bronchus or lung (2) Metastatic disease Area of secondary neoplastic involvement: bone Qualified Code(s): C79.51 - Secondary malignant neoplasm of bone
[2022-01-09] MEDS: CHECK fentaNYL PATCH PLACEMENT SCH ×2 (15:34→23:23)
[2022-01-09] MEDS: MELATONIN 3 MG TAB PO PRN (23:22)
[2022-01-10] MEDS: LEVOTHYROXINE SODIUM 200 MCG TABLET PO SCH (05:49)
[2022-01-10 07:10] LABS: BUN Creatinine Ratio 22.6 (10-20); Calcium 9.9 mg/dl (8.5-10.1); Creatinine Clr Calc Pharmacy 38.2 ml/min; Est GFR (African American) 43.1 ml/min; Est GFR (Non-African American) 37.2 ml/min; Potassium 4.8 mmol/L (3.5-5.1)
[2022-01-10] MEDS: oxyCODONE HCL IR 5 MG TAB (IMMEDIATE RELEASE) PO PRN ×3 (07:57→20:07)
[2022-01-10] MEDS: CHECK fentaNYL PATCH PLACEMENT SCH ×2 (07:58→16:47)
[2022-01-10] MEDS: ASPIRIN 81 MG CHEW PO SCH (10:13)
[2022-01-10] MEDS: ENOXAPARIN INJ 40 MG/0.4 ML SYR SQ SCH (10:14)
[2022-01-10] MEDS: POLYETHYLENE (MIRALAX) 17 GM PACK PO SCH (10:15)
--- NOTE | 2022-01-10 10:16 | Nephrology Progress Note ---
Date of Service January 10, 2022 Assessment & Plan (1) Acute renal failure: (2) ZEINA (acute kidney injury): (3) Hyperkalemia: (4) Hyponatremia: (5) Pleural effusion, malignant: (6) Right arm weakness: Plan: 61 y o m With stage III B CKD baseline creatinine 1.6-1.8, admitted with shortness of breath with bilateral pleural effusion in the setting of recent diagnosis of metastatic small-cell lung carcinoma. Developed ZEINA with decreased p.o. intake and high pleural drainage and overall net negative. Renal function improving with IV hydration. Received radiation therapy with slight improvement in right upper extremity pain and mobility. Currently waiting for resolved for immunological marker for cancer and decision regarding immune therapy however considering overall clinical scenario and repeated episodes of ZEINA may not be a candidate for immunotherapy. -- Continue IV fluid, encourage p.o. intake as tolerated. -- Monitor renal function electrolyte daily, monitor urine output. -- Unfortunately, overall prognosis remains guarded will follow Admission and Anticipated Discharge Date Admission Date: January 04, 2022 Phuong Tracy was seen this morning with his significant other and other family member at bedside. Reports improvement in pain and mobility are right upper extremity after radiation therapy appetite remains low but trying to eat. Has been having high output week PleurX drainage. Renal function slightly improved on IV fluid, creatinine down to 1.9, electrolyte acceptable. Urine output decent. Blood pressure relatively low but asymptomatic. Review of Systems Review of Systems: Detailed review of system was otherwise unremarkable except mentioned above. Physical Exam Constitutional: WD/WN, vitals as above + ill appearing; no acute distress Eyes: + anicteric sclerae Respiratory: no respiratory distress Auscultation: + rales; no wheezes Cardiovascular: Rate/Rhythm: regular rate and regular rhythm Heart Sounds: normal S1 and normal S2 Extremities: no edema Skin: no rashes Neurologic: no focal motor deficits and not confused Psychiatric: Orientation: alert and oriented x 3 Results & Data ([facility]) Vital Signs (Past 12 Hours) Vital Signs Temp Pulse Resp BP BP Pulse Ox 01/10/22 08:09 36.3 C L 102 H 18 96/61 L 97 01/10/22 03:17 36.8 C 98 H 18 100/63 96 01/09/22 23:08 36.8 C 100 H 20 98/65 L 94 PG Care Time/CCT Total # of Minutes Spent Total Time Spent with Patient: Total time spent is greater than 50% in coordination of care (as documented) at patient's floor/unit and/or counseling patient: Coding Level of Care Code 57091 Subseq Hosp Care Lvl 3 Diagnoses Acute renal failure N17.9 ZEINA (acute kidney injury) N17.9 Hyperkalemia E87.5 Hyponatremia E87.1 Pleural effusion, malignant J91.0 Right arm weakness R29.898
--- NOTE | 2022-01-10 11:16 | Hospitalist Progress Note ---
Date of Service January 10, 2022 Assessment & Plan (1) Lung cancer: Plan: Non-small cell lung cancer, metastatic carcinoma, malignant pleural effusion, bilateral Bilateral lung cancer, mets to ribs, left pelvis, right brachial plexus involvement, and possible tumor emboli/stroke pathology on MRI Breathing improved following Pleurx catheter placement and fluid drainage. Pulmonary consulted. Appreciate recommendation Pending EGRF results from DR. Chao, patient being followed by Dr. Chao with [facility] oncology. If appropriate for immunotherapy patient would like to pursue this and consider hospice based on progression, if not would like to pursue hospice Discussed with patient and family, patient is weak and does not have 24-hour care at home, lives alone. Will need placement. Discussed with case management SPO2 goal greater than 88% Patient pending palliative radiation for brachial plexus mass, undergoing simulation today with treatment tomorrow. Palliative care following, appreciate recommendations. Discussed CODE STATUS, DNR/DNI at this time May remove Pleurx catheter sutures January 13. See metastatic disease below Patient does have improvement following removal of fluid, this benefit tends to diminish starting around 12 hours and is again increasingly short of breath which improves at next removal. Patient requested increased frequency for comfort Discussed with pulm, placed to waterseal with Ping kit. Continuing to pursue placement at [facility], placement likely not available till Wednesday. We will continue current care and await results to guide potential immunotherapy. CXR with right upper lobe consolidation, reviewed by pulmonary. Suspected encasement of bronchus/compression by tumor with no role for bronchoscopy. While awaiting immunotherapy patient would like to continue p.o. treatment for pain with comfort in mind. Palliative on board, appreciate narcotic adjustments . Patient on fentanyl patch today, agree especially in the setting of ZEINA/renal impaired 01/09: Did have 1.7 L total output gradually to waterseal, between this and moderately decreased p.o. patient is clinically hypovolemic with uptrending creatinine/ZEINA and hyperkalemia today. Patient does report he felt he had symptomatic improvement with this being placed to gravity compared to the daily draw previously management as below. 01/10: Patient with significant improvement in right shoulder/arm pain and strength following palliative radiation. With supplemental fluids creatinine is downtrending, likely fluid loss with greater than 1.7 L lost to be Pleurx drainage. In anticipation of potential placement on Wednesday will move to twice daily 500 cc max draws tomorrow to see how his renal function tolerates with oral intake. If he were to have worsening ZEINA he would not tolerate immunotherapy, family is aware tolerance of this and prognosis even if indicated and helpful is guarded. Have reached out to [facility] oncology and left message with personal cell phone number for call back regarding receptor results, still pending at this time. We will continue IV fluids for 1 day, and discontinue with moved to twice daily Pleurx drainage tomorrow. (2) Metastatic disease: Plan: MRI reviewed with neurology. Multiple lesions noted in the brain bilaterally, consistent with stroke. No evidence of cardiac arrhythmia or neck vessel origin, DDx includes tumor emboli versus hypercoagulability of malignancy Defer full anticoagulation in this patient due to risk of hemorrhage We will continue with 81 mg daily aspirin, prophylactic Lovenox dosing. Consider discontinuing these if decision to transition to hospice is pursued No acute interventions for above, continue treatment of primary malignancy as mentioned above Appreciate care and recommendations (3) Thyroid cancer: Plan: History of thyroid cancer Continue Synthroid 200 mcg (4) ZEINA (acute kidney injury): Plan: Creatinine acutely elevated from baseline of approximately 1.61.75 to 2.32 on 01/09 Clinically hypovolemic, intravascularly depleted in the setting of increased drainage from Ping to gravity and impaired p.o. intake. Received maintenance fluid and small bolus this morning, followed by 1 L repeat. Seen by nephrology who also added 1 dose of p.o. Veltassa. Appreciate recommendations. Repeat creatinine downtrending, potassium remains normalized Admission patient was on lisinopril, this was previously held for hypotension (5) Progressive focal motor weakness: Plan: Brachial plexopathy as above (6) Hyperkalemia: Admission and Anticipated Discharge Date Admission Date: January 04, 2022 Subjective Patient is seen at bedside with his family and with nephrology. He reports his breathing is significantly better since the Pleurx was moved to gravity, family also report they noticed a difference. He did undergo palliative radiation yesterday and has noted a significant difference in both right arm and shoulder pain and strength. 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 His arm is no longer exquisitely tender to the touch, although somewhat tender to palpation around the right shoulder. He reports his appetite is fairly decreased, but tolerate some sips and bites of food with encouragement from family. Did discuss nutrition goals versus comfort and difficulty in cancer with appetite, patient will continue to eat and drink as tolerated but also not push past the point of comfort. We will switch Pleurx to twice daily drainage tomorrow in anticipation of potential placement on Wednesday, and follow his kidney function to see how he does as he required supplemental fluids with continuous drainage. Physical Exam Physical Exam: General: Appears ill, frail. Awake, well oriented at time of visit. Alert. HEENT: Atraumatic, normocephalic. Vision and hearing grossly intact. Mucous membranes tacky/dry. Pulm: r Pleurx in place, draining to gravity Diminished on the right, otherwise moderate air movement without wheezes/rhonchi no increase in work of breathing. Basilar crackles, late rales no respiratory distress. 1500 cc in Ping at time of visit, serosanguineous. Cardiac: Regular, tachycardic, -mrg. Radial pulses intact and symmetrical. Abdominal: Nontender, nondistended, soft. BS present. Extremities: Right upper extremity weakness with decreased sensation to soft touch compared to the left persists Results & Data Results & Data ([facility]) Vital Signs (Past 12 Hours) Vital Signs Temp Pulse Resp BP BP Pulse Ox 01/10/22 08:09 36.3 C L 102 H 18 96/61 L 97 01/10/22 03:17 36.8 C 98 H 18 100/63 96 PG Care Time/CCT Total # of Minutes Spent Total Time Spent with Patient: Total time spent is greater than 50% in coordination of care (as documented) at patient's floor/unit and/or counseling patient: Coding Level of Care Code 09110 Subseq Hosp Care Lvl 3 Diagnoses Lung cancer C34.90 Laterality: unspecified laterality Lung location: unspecified part of lung Metastatic disease C79.51 Area of secondary neoplastic involvement: bone Thyroid cancer C73 ZEINA (acute kidney injury) N17.9 Progressive focal motor weakness R53.1 Hyperkalemia E87.5 (1) Lung cancer Laterality: unspecified laterality Lung location: unspecified part of lung Qualified Code(s): C34.90 - Malignant neoplasm of unspecified part of unspecified bronchus or lung (2) Metastatic disease Area of secondary neoplastic involvement: bone Qualified Code(s): C79.51 - Secondary malignant neoplasm of bone
--- NOTE | 2022-01-10 12:26 | Pulmonology Progress Note ---
Date of Service January 10, 2022 Assessment & Plan (1) Lung cancer: Laterality: unspecified laterality Lung location: unspecified part of lung Qualified Code(s): C34.90 - Malignant neoplasm of unspecified part of unspecified bronchus or lung (2) Pleural effusion, malignant: (3) Abnormal CT scan of lung: Plan: Impression: 61-year-old male with advanced lung cancer with malignant pleural effusion. He is status post Pleurx catheter placement 01/05/2022. Tube was disconnected from waterseal and we attempted to drain it with a Pleurx bottle today. We got minimal amount of drainage on suction and the patient experienced chest pain so additional drainage was aborted. Recommendations: 1. Malignant pleural effusion: Convert back to Pleurx bottle drainage. Family request that we try and do it twice a day to see if we can offer the patient a clinical benefit. It seems reasonable to start out with that and see how he does. We may be able to transition back to daily depending on output and clinical response. 2. Advanced lung cancer: Per oncology 3. Continue oxygen titrated to keep saturations between 88 and 92%. 4. Radiation therapy to the right shoulder per radiation oncology 5. Continue palliative care. 6. The patient's x-ray now demonstrates complete consolidation of the right upper lobe. Review of his CT scan from 01/04/2022 demonstrated encasement of the right upper lobe bronchus and I suspect that that bronchus is now completely compressed/occluded by extrinsic tumor. No role for bronchoscopy or radiation therapy at this point in time. Given the tumor encasement of the bronchus intermedius, the patient is at risk of complete right lung atelectasis at some point if the tumor progresses. Again there is no endobronchial therapy available for this. Available to see as needed. Feel free to contact us if we can be of additional assistance Admission and Anticipated Discharge Date Admission Date: January 04, 2022 Subjective Patient seen and examined. EMR reviewed. Discussed with family at bedside. The patient states that he is breathing okay. He is getting some function back in his arm after radiation therapy. His pain is better. He is not coughing or expectorating phlegm. Review of Systems Review of Systems: All systems reviewed & are unremarkable except as noted in Subjective Physical Exam Constitutional: WD/WN, vitals as above Respiratory: no respiratory distress Cardiovascular: RRR, no murmur, no edema Gastrointestinal (Abdomen): Inspection/Auscultation: abdomen normal to inspection; abdomen not distended Skin: no rashes, warm and dry Neurologic: awake; + does not move all extremities Motor/Sensory: + sensory deficit (No sensation in the right arm) Psychiatric: Orientation: alert, oriented to person and cooperative Results & Data Results & Data ([facility]) Vital Signs (Past 12 Hours) Vital Signs Temp Pulse Pulse Resp BP BP Pulse Ox 01/10/22 12:08 36.8 C 95 H 18 86/57 L 97 01/10/22 11:42 101 H 01/10/22 08:09 36.3 C L 102 H 18 96/61 L 97 01/10/22 03:17 36.8 C 98 H 18 100/63 96 Critical Care Results & Data Vital Signs (Past 12 Hours) Vital Signs Temp Pulse Pulse Resp BP BP Pulse Ox 01/10/22 12:08 36.8 C 95 H 18 86/57 L 97 01/10/22 11:42 101 H 01/10/22 08:09 36.3 C L 102 H 18 96/61 L 97 01/10/22 03:17 36.8 C 98 H 18 100/63 96 Lab & Micro Results (Past 24 Hours) No Data to Display Na 131 mmol/L (136-145) L 01/10/22 K 4.8 mmol/L (3.5-5.1) 01/10/22 Cl 101 mmol/L (98-107) 01/10/22 CO2 22 mmol/L (21-32) 01/10/22 Anion Gap 8 (3-11) 01/10/22 BUN 43 mg/dl (6-23) H 01/10/22 Creatinine 1.90 mg/dl (0.6-1.4) H 01/10/22 Estimated GFR ( Amer) 43.1 ml/min 01/10/22 Estimated GFR (Non-Af Amer) 37.2 ml/min 01/10/22 BUN/Creatinine Ratio 22.6 (10-20) H 01/10/22 Glu 105 mg/dl (70-99(Fasting)) H 01/10/22 Ca 9.9 mg/dl (8.5-10.1) 01/10/22 Calcium Level 9.9 mg/dl (8.5-10.1) 01/10/22 06:41 01/10/22 Microbiology 01/05/22 Unknown Gram Stain - Final Pleural Fluid Aerobic and Anaerobic Culture - Final No growth 01/04/22 15:57 Aerobic Blood Culture - Final Blood No growth in Aerobic bottle after 5 days. Anaerobic Blood Culture - Final No growth in Anaerobic bottle after 5 days. 01/04/22 16:11 Aerobic Blood Culture - Final Blood No growth in Aerobic bottle after 5 days. Anaerobic Blood Culture - Final No growth in Anaerobic bottle after 5 days. I & O Totals 24 Hours 01/09/22 01/10/22 01/11/22 06:59 06:59 06:59 Intake Total 300 / 300 3300 / 3300 Output Total 1725 / 1725 Balance -1425 / -1425 3300 / 3300 Cumulative 01/04/22 10:25 thru 01/10/22 06:26 Intake Total 22879.333 Output Total 3950 Balance 8538.333 RT Ventilator Mngmt (Last Documented) Ventilator Ordered Settings Respiratory Rate 18 01/10/22 12:08 Ventilator - PT Measurements Respiratory Rate 18 PG Care Time/CCT Total # of Minutes Spent Total Time Spent with Patient: Total time spent is greater than 50% in coordination of care (as documented) at patient's floor/unit and/or counseling patient: Coding Level of Care Code 28463 Subseq Hosp Care Lvl 2 Diagnoses Lung cancer C34.90 Laterality: unspecified laterality Lung location: unspecified part of lung Pleural effusion, malignant J91.[address] scan of lung R91.8
--- NOTE | 2022-01-10 12:27 | Procedure Note ---
Procedure Note Date of Service January 10, 2022 Note Drainage of indwelling Pleurx catheter: Manager Agriculture Dr. Gifford Indication malignant pleural effusion Procedure: Patient was placed in the right side up decubitus position. The dressing was taken down. The catheter was detached from the Ipng drainage system. It was cleaned using alcohol wipes x2. He was attached to a Pleurx drainage bottle. With suction, we were able to drain about 100 mL which point time the patient had significant pain radiating up to his shoulder. He requested the procedure be terminated. The catheter was detached from the vacuum bottle and cap was placed. Sterile dressing was reapplied. Would plan on trying to drain the Pleurx catheter using the Pleurx bottle drainage systems once per shift to see how he does. Depending on output, we can change timing of drainage. Coding CPT Codes Pulmonary/Thoracic - Pulmonary and Thoracic: 94430 Pleural drainage w/o imaging ([id number]) [facility] [place] Codes (Charges) Pulmonary/Thoracic Procedure 1: Pulmonary and Thoracic: 62240 Pleural drainage w/o imaging
[2022-01-10] MEDS: MELATONIN 3 MG TAB PO PRN (23:47)
[2022-01-11] MEDS: LEVOTHYROXINE SODIUM 200 MCG TABLET PO SCH (07:49)
[2022-01-11] MEDS: CHECK fentaNYL PATCH PLACEMENT SCH ×3 (07:49→17:51)
[2022-01-11] MEDS: oxyCODONE HCL IR 5 MG TAB (IMMEDIATE RELEASE) PO PRN ×4 (07:49→20:46)
[2022-01-11] MEDS: ASPIRIN 81 MG CHEW PO SCH (07:50)
[2022-01-11] MEDS: POLYETHYLENE (MIRALAX) 17 GM PACK PO SCH (07:50)
[2022-01-11] MEDS: ENOXAPARIN INJ 40 MG/0.4 ML SYR SQ SCH (07:50)
[2022-01-11 08:37] LABS: BUN Creatinine Ratio 21.8 (10-20); Calcium 10.4 mg/dl (8.5-10.1); Creatinine Clr Calc Pharmacy 38.6 ml/min; Est GFR (African American) 43.7 ml/min; Est GFR (Non-African American) 37.7 ml/min; Potassium 4.9 mmol/L (3.5-5.1)
--- NOTE | 2022-01-11 10:47 | Hospitalist Progress Note ---
Date of Service January 11, 2022 Assessment & Plan (1) Lung cancer: Plan: Non-small cell lung cancer, metastatic carcinoma, malignant pleural effusion, bilateral Bilateral lung cancer, mets to ribs, left pelvis, right brachial plexus involvement, and possible tumor emboli/stroke pathology on MRI Breathing improved following Pleurx catheter placement and fluid drainage. Pulmonary consulted. Appreciate recommendation Pending EGRF results from DR. Chao, patient being followed by Dr. Chao with [facility] oncology. If appropriate for immunotherapy patient would like to pursue this and consider hospice based on progression, if not would like to pursue hospice Discussed with patient and family, patient is weak and does not have 24-hour care at home, lives alone. Will need placement. Discussed with case management SPO2 goal greater than 88% Patient pending palliative radiation for brachial plexus mass, undergoing simulation today with treatment tomorrow. Palliative care following, appreciate recommendations. Discussed CODE STATUS, DNR/DNI at this time May remove Pleurx catheter sutures January 13. See metastatic disease below Patient does have improvement following removal of fluid, this benefit tends to diminish starting around 12 hours and is again increasingly short of breath which improves at next removal. Patient requested increased frequency for comfort Discussed with pulm, placed to waterseal with Ping kit. Continuing to pursue placement at [facility], placement likely not available till Wednesday. We will continue current care and await results to guide potential immunotherapy. CXR with right upper lobe consolidation, reviewed by pulmonary. Suspected encasement of bronchus/compression by tumor with no role for bronchoscopy. While awaiting immunotherapy patient would like to continue p.o. treatment for pain with comfort in mind. Palliative on board, appreciate narcotic adjustments . Patient on fentanyl patch today, agree especially in the setting of ZEINA/renal impaired 01/09: Did have 1.7 L total output gradually to waterseal, between this and moderately decreased p.o. patient is clinically hypovolemic with uptrending creatinine/ZEINA and hyperkalemia today. Patient does report he felt he had symptomatic improvement with this being placed to gravity compared to the daily draw previously management as below. 01/10: Patient with significant improvement in right shoulder/arm pain and strength following palliative radiation. With supplemental fluids creatinine is downtrending, likely fluid loss with greater than 1.7 L lost to be Pleurx drainage. In anticipation of potential placement on Wednesday will move to twice daily 500 cc max draws tomorrow to see how his renal function tolerates with oral intake. If he were to have worsening ZEINA he would not tolerate immunotherapy, family is aware tolerance of this and prognosis even if indicated and helpful is guarded. Have reached out to [facility] oncology and left message with personal cell phone number for call back regarding receptor results, still pending at this time. We will continue IV fluids for 1 day, and discontinue with moved to twice daily Pleurx drainage tomorrow. 01/11: Pleurx moved to twice daily drainage. Patient remains symptomatically improved with this. Creatinine downtrending. Potassium remains normal. Anticipate placement progress tomorrow, and hopefully onc office will be updated with results available at that time. They continue palliative radiation at that time as well. Defer additional IV fluids at this time (2) Metastatic disease: Plan: MRI reviewed with neurology. Multiple lesions noted in the brain bilaterally, consistent with stroke. No evidence of cardiac arrhythmia or neck vessel origin, DDx includes tumor emboli versus hypercoagulability of malignancy Defer full anticoagulation in this patient due to risk of hemorrhage We will continue with 81 mg daily aspirin, prophylactic Lovenox dosing. Consider discontinuing these if decision to transition to hospice is pursued No acute interventions for above, continue treatment of primary malignancy as mentioned above Appreciate care and recommendations (3) Thyroid cancer: Plan: History of thyroid cancer Continue Synthroid 200 mcg (4) ZEINA (acute kidney injury): Plan: Creatinine acutely elevated from baseline of approximately 1.61.75 to 2.32 on 01/09 Clinically hypovolemic, intravascularly depleted in the setting of increased drainage from Ping to gravity and impaired p.o. intake. Received maintenance fluid and small bolus this morning, followed by 1 L repeat. Seen by nephrology who also added 1 dose of p.o. [place]. Appreciate recommendations. Admission patient was on lisinopril, this was previously held for hypotension Creatinine bumped as above, down trended with gentle hydration and moved to twice daily Pleurx p.o. as above. Continue to follow. (5) Progressive focal motor weakness: Plan: Brachial plexopathy as above (6) Hyperkalemia: Admission and Anticipated Discharge Date Admission Date: January 04, 2022 Subjective Patient is seen at the bedside this morning. He reports his breathing is comfortable, and he continues to feel well with twice daily Pleurx fluid removal which was converted yesterday from gravity. Right arm is relatively unchanged from yesterday, still has some strength at the shoulder with a little bit of increased tenderness at the proximal upper arm. Has not had a bowel movement. No nausea/vomiting. Otherwise just awaiting progress of the plan as previously noted. Discussed with family at bedside. Review of Systems Review of Systems: All systems reviewed & are unremarkable except as noted in Subjective Physical Exam Physical Exam: General: Appears ill, frail. Awake, well oriented at time of visit. Alert. HEENT: Atraumatic, normocephalic. Vision and hearing grossly intact. Mucous membranes tacky/dry. Pulm: r Pleurx in place. Scattered inspiratory wheezes, diminished on the right, otherwise moderate air movement without rhonchi no increase in work of breathing. Basilar crackles, no rales Cardiac: Regular, tachycardic, -mrg. Radial pulses intact and symmetrical. Abdominal: Nontender, nondistended, soft. BS present. Extremities: Right upper extremity weakness with decreased sensation to soft touch compared to the left persists. 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 Results & Data Results & Data ([facility]) Vital Signs (Past 12 Hours) Vital Signs Temp Pulse Pulse Resp BP BP Pulse Ox 01/11/22 09:13 99 H 01/11/22 07:32 36.5 C 106 H 16 91/55 L 95 01/11/22 05:53 99 H 01/11/22 03:34 36.7 C 113 H 20 103/65 95 PG Care Time/CCT Total # of Minutes Spent Total Time Spent with Patient: Total time spent is greater than 50% in coordination of care (as documented) at patient's floor/unit and/or counseling patient: Coding Level of Care Code 14787 Subseq Hosp Care Lvl 2 Diagnoses Lung cancer C34.90 Laterality: unspecified laterality Lung location: unspecified part of lung Metastatic disease C79.51 Area of secondary neoplastic involvement: bone Thyroid cancer C73 ZEINA (acute kidney injury) N17.9 Progressive focal motor weakness R53.1 Hyperkalemia E87.5 (1) Lung cancer Laterality: unspecified laterality Lung location: unspecified part of lung Qualified Code(s): C34.90 - Malignant neoplasm of unspecified part of unspecified bronchus or lung (2) Metastatic disease Area of secondary neoplastic involvement: bone Qualified Code(s): C79.51 - Secondary malignant neoplasm of bone
--- NOTE | 2022-01-11 10:58 | Nephrology Progress Note ---
Date of Service January 11, 2022 Assessment & Plan (1) Acute renal failure: (2) ZEINA (acute kidney injury): (3) Hyperkalemia: (4) Hyponatremia: (5) Pleural effusion, malignant: (6) Right arm weakness: Plan: 61 y o m With stage III B CKD baseline creatinine 1.6-1.8, admitted with shortness of breath with bilateral pleural effusion in the setting of recent diagnosis of metastatic small-cell lung carcinoma. Developed ZEINA with decreased p.o. intake and high pleural drainage and overall net negative. Renal function stable, Ca high. Received radiation therapy with slight improvement in right upper extremity pain and mobility. Currently waiting for resolved for immunological marker for cancer and decision regarding immune therapy however considering overall clinical scenario and repeated episodes of ZEINA may not be a candidate for immunotherapy. -- encourage p.o. intake as tolerated specially with mild hypercalcemia, if ca worsen may nee dto restart on IV fluid -- Monitor renal function electrolyte daily, monitor urine output. -- Unfortunately, overall prognosis remains guarded will follow Admission and Anticipated Discharge Date Admission Date: January 04, 2022 Phuong Tracy was seen with his significant other at bedside. Reports improvement in pain and mobility are right upper extremity after radiation therapy appetite remains low but trying to eat. PleurX drainage twice a day, off of IV fluid. Renal function stable, creatinine 1.9, electrolyte acceptable. Urine output decent. Blood pressure relatively low but asymptomatic. Physical Exam Constitutional: WD/WN, vitals as above + ill appearing; no acute distress Eyes: + anicteric sclerae Respiratory: no respiratory distress Auscultation: + rales; no wheezes Cardiovascular: Rate/Rhythm: regular rate and regular rhythm Heart Sounds: normal S1 and normal S2 Extremities: no edema Skin: no rashes Neurologic: no focal motor deficits and not confused Psychiatric: Orientation: alert and oriented x 3 Results & Data ([facility]) Vital Signs (Past 12 Hours) Vital Signs Temp Pulse Pulse Resp BP BP Pulse Ox 01/11/22 09:13 99 H 01/11/22 07:32 36.5 C 106 H 16 91/55 L 95 01/11/22 05:53 99 H 01/11/22 03:34 36.7 C 113 H 20 103/65 95 PG Care Time/CCT Total # of Minutes Spent Total Time Spent with Patient: Total time spent is greater than 50% in coordination of care (as documented) at patient's floor/unit and/or counseling patient: Coding Level of Care Code 56965 Subseq Hosp Care Lvl 3 Diagnoses Acute renal failure N17.9 ZEINA (acute kidney injury) N17.9 Hyperkalemia E87.5 Hyponatremia E87.1 Pleural effusion, malignant J91.0 Right arm weakness R29.898
[2022-01-11] MEDS ORDERED: SODIUM CHLORIDE 0.9% 1000ML 500 ML IV ONE (18:36)
[2022-01-12] MEDS: MELATONIN 3 MG TAB PO PRN (00:19)
[2022-01-12] MEDS: CHECK fentaNYL PATCH PLACEMENT SCH ×3 (00:38→15:26)
[2022-01-12] MEDS: oxyCODONE HCL IR 5 MG TAB (IMMEDIATE RELEASE) PO PRN ×4 (00:55→15:23)
[2022-01-12] MEDS ORDERED: LACTATED RINGER'S 250 ML IV ONE (05:57)
[2022-01-12 06:19] LABS: BUN Creatinine Ratio 23.2 (10-20); Calcium 10.4 mg/dl (8.5-10.1); Est GFR (African American) 36.1 ml/min; Est GFR (Non-African American) 31.2 ml/min; Potassium 4.9 mmol/L (3.5-5.1)
[2022-01-12] MEDS: ENOXAPARIN INJ 40 MG/0.4 ML SYR SQ SCH (08:49)
[2022-01-12] MEDS: ASPIRIN 81 MG CHEW PO SCH (08:49)
[2022-01-12] MEDS: POLYETHYLENE (MIRALAX) 17 GM PACK PO SCH (09:08)
--- NOTE | 2022-01-12 09:30 | Nephrology Progress Note ---
Date of Service January 12, 2022 Assessment & Plan (1) Acute renal failure: (2) ZEINA (acute kidney injury): (3) Hyperkalemia: (4) Hyponatremia: (5) Pleural effusion, malignant: (6) Right arm weakness: Plan: 61 y o m with stage III B CKD baseline creatinine 1.6-1.8, admitted with shortness of breath with bilateral pleural effusion in the setting of recent diagnosis of metastatic small-cell lung carcinoma. Developed ZEINA with decreased p.o. intake and high pleural drainage and overall net negative. Renal function stable, Ca high but stable at 10.4. Received radiation therapy with slight improvement in right upper extremity pain and mobility but again worsened since yesterday. Currently waiting for resolved for immunological marker for cancer and decision regarding immune therapy however considering overall clinical scenario and repeated episodes of ZEINA may not be a candidate for immunotherapy. -- encourage p.o. intake as tolerated specially with mild hypercalcemia. -- Monitor renal function electrolyte daily, monitor urine output will hold off IV hydration while waiting for decision regarding discharge. -- Unfortunately, overall prognosis remains guarded will follow Admission and Anticipated Discharge Date Admission Date: January 04, 2022 Phuong Tracy was seen with his significant other and his sister at bedside. Overall feeling poorly, has SOB now on NC O2, continues to be in significant pain in rt shoulder and arm. Appetite remains low but trying to eat. PleurX drainage twice a day, off of IV fluid. Renal function again worsened off of IV fluid, creatinine 2.2, Na 131. Urine output decent. Blood pressure low but asymptomatic. Review of Systems Review of Systems: Detailed review of system was otherwise unremarkable except mentioned above. Physical Exam Constitutional: WD/WN, vitals as above + acute distress and + ill appearing Eyes: + anicteric sclerae Respiratory: + respiratory distress Neurologic: not confused Psychiatric: Orientation: alert and oriented x 3 Results & Data ([facility]) Vital Signs (Past 12 Hours) Vital Signs Temp Pulse Pulse Resp BP BP Pulse Ox 01/12/22 07:38 36.6 C 101 H 24 85/56 L 96 01/12/22 06:23 99 H 01/12/22 06:16 36.5 C 104 H 20 84/53 L 98 01/12/22 06:10 103 H 01/11/22 23:32 36.6 C 99 H 18 98/64 L 96 PG Care Time/CCT Total # of Minutes Spent Total Time Spent with Patient: Total time spent is greater than 50% in coordination of care (as documented) at patient's floor/unit and/or counseling patient: Coding Level of Care Code 94821 Subseq Hosp Care Lvl 2 Diagnoses Acute renal failure N17.9 ZEINA (acute kidney injury) N17.9 Hyperkalemia E87.5 Hyponatremia E87.1 Pleural effusion, malignant J91.0 Right arm weakness R29.898
--- NOTE | 2022-01-12 09:31 | XRay Report ---
XR chest 1V portable HISTORY: hypoxia COMPARISON: Chest 01/09/2022. FINDINGS: A right basilar pleural catheter is again noted. No pneumothorax. There are small bilateral pleural effusions which have increased in size. Dense consolidation/mass within the right upper lobe is again noted. Mild diffuse interstitial thickening slightly progressed. Scattered multifocal irreg ular bilateral pulmonary nodules consistent with metastatic disease are again noted. Right upper rib erosion, unchanged. The heart is normal in size. IMPRESSION: 1. Right basilar pleural catheter is again noted. 2. A right-sided pneumothorax appears to result in the interval. 3. Small bilateral pleural effusions have progressed. 4. Right upper lobe masslike opacity and scattered irregular pulmonary nodules are again noted. 5. Mild diffuse interstitial thickening has slightly progressed likely representing superimposed pulm onary vascular congestion. ACT 112: Negative or not required by law. Electronically signed by: Valdo Reddy M.D. 01/12/2022 9:30 AM
[2022-01-12] MEDS ORDERED: bisacodyL 5 MG TABEC PO PRN (11:27)
[2022-01-12] MEDS ORDERED: SODIUM CHLORIDE 0.9% 1000ML 1,000 ML IV ONE (12:31)
--- NOTE | 2022-01-12 12:31 | Hospitalist Progress Note ---
Date of Service January 12, 2022 Assessment & Plan (1) Lung cancer: Plan: Non-small cell lung cancer, metastatic carcinoma, malignant pleural effusion, bilateral Bilateral lung cancer, mets to ribs, left pelvis, right brachial plexus involvement, and possible tumor emboli/stroke pathology on MRI Breathing improved following Pleurx catheter placement and fluid drainage. Pulmonary consulted. Appreciate recommendation Discussed with patient and family, patient is weak and does not have 24-hour care at home, lives alone. Will need placement. Discussed with case management SPO2 goal greater than 88% Discussed CODE STATUS, DNR/DNI at this time Pleurx catheter sutures removed. See metastatic disease below Patient does have improvement following removal of fluid, this benefit tends to diminish starting around 12 hours and is again increasingly short of breath which improves at next removal. Patient requested increased frequency for comfort Discussed with pulm, placed to waterseal with Ping kit. Continuing to pursue placement at [facility], placement likely not available till Wednesday. We will continue current care and await results to guide potential immunotherapy. CXR with right upper lobe consolidation, reviewed by pulmonary. Suspected e ncasement of bronchus/compression by tumor with no role for bronchoscopy. Patient initially on Pleurx 1 L daily with worsening shortness of breath after 12 hours. Did well with gravity drainage, however did have ZEINA and inability to keep up with fluids to this. Pleurx moved to twice daily drainage, will continue this. Patient remains symptomatically improved with this. His EGFF receptor is negative, poor candidate for other treatments which would likely produce significant compromise to his quality of life without good odds of increases in his length of life. Discussed by hospitalist with patient, who also had a meeting with oncology. They with this in light will most likely moved to hospice and comfort oriented goals, would like family meeting with palliative tomorrow before proceeding. Palliative aware and is agreeable to this. Management following, anticipate placement available this week. Patient can continue receiving his palliative radiation, 5 total fractions would be complete on Wednesday although this does not necessarily need to be completed as inpatient (2) Metastatic disease: Plan: MRI reviewed with neurology. Multiple lesions noted in the brain bilaterally, consistent with stroke. No evidence of cardiac arrhythmia or neck vessel origin, DDx includes tumor emboli versus hypercoagulability of malignancy Defer full anticoagulation in this patient due to risk of hemorrhage We will continue with 81 mg daily aspirin, prophylactic Lovenox dosing. Consider discontinuing these if decision to transition to hospice is pursued No acute interventions for above, continue treatment of primary malignancy as mentioned above Appreciate care and recommendations (3) Thyroid cancer: Plan: History of thyroid cancer Continue Synthroid 200 mcg (4) ZEINA (acute kidney injury): Plan: Creatinine acutely elevated from baseline of approximately 1.61.75 to 2.32 on 01/09 dynamic to volume status. Remains elevated with poor p.o. intake. Admission patient was on lisinopril, this was previously held for hypotension Discussed would not continue IV fluids if comfort care goals are pursued, family is agreeable to this following discussion tomorrow. Will give one-time dose today, and defer labs in the morning anticipating move to hospice. (5) Progressive focal motor weakness: Plan: Brachial plexopathy as above (6) Hyperkalemia: Admission and Anticipated Discharge Date Admission Date: January 04, 2022 Subjective Seen at the bedside with family this morning. Breathing is about the same as yesterday, no acute change. Shortness of breath prior to fluid removal, tolerable to him and better than prior to Pleurx placement reports he does have some increased pain in his right shoulder and sensitivity in his right arm increased from prior today, but not as bad as before palliative radiation treatment. Does have some stomach upset and nausea, would like some Pepcid. Did review pathology results with oncology and Dr. Chao, patient is EGFR negati ve and not a candidate for immunotherapy. Was discussed by hospitalist and with oncology that patient is a poor candidate for other treatments which would likely produce significant compromise to his quality of life without good odds of increases in his length of life. Family with this in mind are interested in moving towards full hospice goals of care, but would like a family meeting tomorrow with medical power of criminal attorney present. This has been discussed with palliative who is coordinating. Review of Systems Review of Systems: 10 point review systems negative except as noted in subjective Physical Exam Physical Exam: General: Appears ill, frail. Awake, well oriented at time of visit. Alert. HEENT: Atraumatic, normocephalic. Vision and hearing grossly intact. Mucous membranes tacky/dry. Pulm: r Pleurx in place. Scattered inspiratory wheezes, diminished on the right, otherwise moderate air movement. Somewhat coarse today on the right. Cardiac: Regular, tachycardic, -mrg. Radial pulses intact and symmetrical. Abdominal: Nontender, nondistended, soft. BS present. Extremities: Right upper extremity weakness with decreased sensation to soft touch compared to the left persists. Right arm is more tender overlying the deltoid and mid upper arm today compared to prior to soft touch. 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 Results & Data Results & Data ([facility]) Vital Signs (Past 12 Hours) Vital Signs Temp Pulse Pulse Resp BP Pulse Ox 01/12/22 07:38 36.6 C 101 H 24 85/56 L 96 01/12/22 06:23 99 H 01/12/22 06:16 36.5 C 104 H 20 84/53 L 98 01/12/22 06:10 103 H PG Care Time/CCT Total # of Minutes Spent Total Time Spent with Patient: Total time spent is greater than 50% in coordination of care (as documented) at patient's floor/unit and/or counseling patient: Coding Level of Care Code 47323 Subseq Hosp Care Lvl 2 Diagnoses Lung cancer C34.90 Laterality: unspecified laterality Lung location: unspecified part of lung Metastatic disease C79.51 Area of secondary neoplastic involvement: bone Thyroid cancer C73 ZEINA (acute kidney injury) N17.9 Progressive focal motor weakness R53.1 Hyperkalemia E87.5 (1) Lung cancer Laterality: unspecified laterality Lung location: unspecified part of lung Qualified Code(s): C34.90 - Malignant neoplasm of unspecified part of unspecified bronchus or lung (2) Metastatic disease Area of secondary neoplastic involvement: bone Qualified Code(s): C79.51 - Secondary malignant neoplasm of bone
[2022-01-12] MEDS: FAMOTIDINE 20 MG in SYRINGE 3 ML IV PRN (12:45)
[2022-01-12] MEDS: fentaNYL 25 MCG/HR TDSY TD SCH (13:04)
--- NOTE | 2022-01-12 13:04 | Palliative Care Progress Note ---
Date of Service January 12, 2022 Assessment & Plan (1) Generalized pain: Plan: Not adequately controlled with current dosing. Will increase fentanyl to 50mcg. Continue prn oxycodone dosing with dose prior to radiation therapy. Radiation appears to be helping with his shoulder and arm pain. (2) Palliative care encounter: Plan: Receptor status was negative and family has spoken with Dr. Chao at [facility]. They are requesting a family meeting tomorrow when brother, Corrine, can also be present to discuss plan of care moving forward. Meeting arranged for 1030 am at bedside. (3) Lung cancer: (4) Metastatic disease: Admission and Anticipated Discharge Date Admission Date: January 04, 2022 Subjective Restless in bed during pleurx drain. Has been complaining of generalized pain though he does note that right shoulder pain and arm weakness have improved. He has had 65mg prn oxycodone in the last 24 hours in addition to fentanyl patch which was started on Wednesday. Review of Systems Review of Systems: [place] Symptom Assessment Scale Pain 2/3 Dyspnea 1/3 Fatigue 2/3 Drowsiness 1/3 Palliative Performance Score 30% Physical Exam Constitutional: + disheveled; + uncomfortable Respiratory: normal respiratory effort serosanguinous drainage from pleurx Musculoskeletal: Extremities: + muscle atrophy Neurologic: awake; not confused Results & Data ([facility]) Vital Signs (Past 12 Hours) Vital Signs Temp Pulse Pulse Resp BP Pulse Ox 01/12/22 07:38 97.9 F 101 H 24 85/56 L 96 01/12/22 06:23 99 H 01/12/22 06:16 97.7 F 104 H 20 84/53 L 98 01/12/22 06:10 103 H PG Care Time/CCT Total # of Minutes Spent Total Time Spent: 25 Total Time Spent with Patient: Total time spent is greater than 50% in coordination of care (as documented) at patient's floor/unit and/or counseling patient: symptom managment, patient and family support Coding Level of Care Code 70896 Subseq Hosp Care Lvl 2 Diagnoses Generalized pain R52 Palliative care encounter Z51.5 Lung cancer C34.90 Laterality: unspecified laterality Lung location: unspecified part of lung Metastatic disease C79.51 Area of secondary neoplastic involvement: bone (1) Lung cancer Laterality: unspecified laterality Lung location: unspecified part of lung Qualified Code(s): C34.90 - Malignant neoplasm of unspecified part of unspecified bronchus or lung (2) Metastatic disease Area of secondary neoplastic involvement: bone Qualified Code(s): C79.51 - Secondary malignant neoplasm of bone
[2022-01-12] MEDS: fentaNYL 50 MCG/HR TDSY TD SCH (13:33)
[2022-01-12] MEDS ORDERED: Nursing to Pharmacy Communication SCH (16:30)
[2022-01-13] MEDS: CHECK fentaNYL PATCH PLACEMENT SCH ×4 (00:07→23:47)
[2022-01-13] MEDS: MELATONIN 3 MG TAB PO PRN (00:09)
[2022-01-13] MEDS: oxyCODONE HCL IR 5 MG TAB (IMMEDIATE RELEASE) PO PRN ×3 (03:31→14:17)
[2022-01-13] MEDS: LEVOTHYROXINE SODIUM 200 MCG TABLET PO SCH (05:44)
[2022-01-13] MEDS: ENOXAPARIN INJ 40 MG/0.4 ML SYR SQ SCH (08:04)
[2022-01-13] MEDS: ASPIRIN 81 MG CHEW PO SCH (08:04)
[2022-01-13] MEDS: FAMOTIDINE 20 MG in SYRINGE 3 ML IV PRN (08:31)
[2022-01-13] MEDS: POLYETHYLENE (MIRALAX) 17 GM PACK PO SCH (09:06)
--- NOTE | 2022-01-13 09:34 | Nephrology Progress Note ---
Date of Service January 13, 2022 Assessment & Plan (1) ZEINA (acute kidney injury): (2) Hyperkalemia: (3) Hyponatremia: (4) Pleural effusion, malignant: (5) Right arm weakness: Plan: 61 y o m with stage III B CKD baseline creatinine 1.6-1.8, admitted with shortness of breath with bilateral pleural effusion in the setting of recent diagnosis of metastatic small-cell lung carcinoma. Developed ZEINA with decreased p.o. intake and high pleural drainage and overall net negative. EGFF receptor was negative, leaning toward hospice care, waiting on family meeting this morning. -- encourage p.o. intake as tolerated specially with mild hypercalcemia. will follow Admission and Anticipated Discharge Date Admission Date: January 04, 2022 Review of Systems Review of Systems: Detailed review of system was otherwise unremarkable except mentioned above. Physical Exam Constitutional: WD/WN, vitals as above + ill appearing Respiratory: + respiratory distress Neurologic: not confused Psychiatric: Orientation: alert and oriented x 3 Results & Data ([facility]) Vital Signs (Past 12 Hours) Vital Signs Temp Pulse Pulse Resp BP BP Pulse Ox 01/13/22 07:51 36.5 C 107 H 16 84/53 L 98 01/13/22 07:18 103 H 01/13/22 04:12 36.5 C 102 H 16 100/63 96 01/13/22 00:14 104 H 01/13/22 00:00 104 H 01/12/22 23:29 36.8 C 104 H 18 99/67 L 96 PG Care Time/CCT Total # of Minutes Spent Total Time Spent with Patient: Total time spent is greater than 50% in coordination of care (as documented) at patient's floor/unit and/or counseling patient: Coding Level of Care Code 99975 Subseq Hosp Care Lvl 2 Diagnoses ZEINA (acute kidney injury) N17.9 Hyperkalemia E87.5 Hyponatremia E87.1 Pleural effusion, malignant J91.0 Right arm weakness R29.898
--- NOTE | 2022-01-13 12:08 | Palliative Care Progress Note ---
Date of Service January 13, 2022 Assessment & Plan (1) Generalized pain: Plan: Opioid use decreased with increase in fentanyl patch. Monitor prn use. (2) Palliative care encounter: Plan: 35 minute family meeting with Demarcus, his brother and sister, Dr. Mazariegos and myself at bedside. I asked Demarcus and his family to describe what their impression was after their discussion with Dr. Chao about possible cancer treatment. Initially, Demarcus indicated that there were no further options and that his wish would be to focus on comfort directed care. Family acknowledged this. Demarcus recognizes that time is short for him and has said that he wants that to be as good as it can be. During conversation he indicated that he would want to "try the options" which seemed to indicate that he would want to pursue cancer treatment. Given his debilitated state, it is unlikely that he would tolerate cancer treatment and that was discussed. We also discussed likelihood that treatment would cause symptoms that could negatively impact his quality of life. He acknowledges this and wants to proceed. Initially, this would necessitate transfer to SNF with rehab and he will be reevaluated by PT today wi th that in mind. I assured them that we will continue to do our best to address symptoms. (3) Anxiety: Plan: PRN ativan ordered. (4) Constipation: Plan: May be contributing to anxiety and restlessness. No BM despite 5 days of miralax and dulcolax yesterday. Would consider repeat duclolax at 10 mg and increase miralax to BID. If no reponse, may need methylnaltrexone for opioid induced constipation. Admission and Anticipated Discharge Date Admission Date: January 04, 2022 Subjective Very restless. Frequently grimacing. Only used prn oxycodone x 30mg total in last 24 hours after increase in fentanyl. Review of Systems Review of Systems: Rhodes Symptom Assessment Scale Denies pain despite pain behaviors Anxiety 2/3 Fatigue 2/3 Drowsiness 0/3 Palliative Performance Score 30% Physical Exam Constitutional: + ill appearing; + uncomfortable Respiratory: + uses accessory muscles Cardiovascular: Rate/Rhythm: regular rate and regular rhythm Musculoskeletal: Extremities: + muscle atrophy Neurologic: right arm flaccid Results & Data ([facility]) Vital Signs (Past 12 Hours) Vital Signs Temp Pulse Pulse Resp BP BP Pulse Ox 04/05/22 07:51 97.7 F 107 H 16 84/53 L 98 01/13/22 07:18 103 H 01/13/22 04:12 97.7 F 102 H 16 100/63 96 01/13/22 00:14 104 H PG Care Time/CCT Total # of Minutes Spent Total Time Spent: 45 Total Time Spent with Patient: Total time spent is greater than 50% in coordination of care (as documented) at patient's floor/unit and/or counseling patient:goals of care, symptom management, coordination of care Coding Level of Care Code 53047 Subseq Hosp Care Lvl 3 Diagnoses Generalized pain R52 Palliative care encounter Z51.5 Anxiety F41.9 Constipation K59.00
--- NOTE | 2022-01-13 13:58 | Hospitalist Progress Note ---
Date of Service January 13, 2022 Assessment & Plan (1) Lung cancer: Plan: Non-small cell lung cancer, metastatic carcinoma, malignant pleural effusion, bilateral Bilateral lung cancer, mets to ribs, left pelvis, right brachial plexus involvement, and possible tumor emboli/stroke pathology on MRI Breathing improved following Pleurx catheter placement and fluid drainage. Pulmonary consulted. Appreciate recommendation Discussed with patient and family, patient is weak and does not have 24-hour care at home, lives alone. Will need placement. Discussed with case management SPO2 goal greater than 88% Discussed CODE STATUS, DNR/DNI at this time Pleurx catheter sutures removed. See metastatic disease below Patient did have improvement with daily removal of fluid, this benefit tended to diminish starting around 12 hours and is again increasingly short of breath which improves at next removal. Patient requested increased frequency for comfort Discussed with pulm, placed to waterseal with Ping kit. Continuing to pursue placement at [facility], placement likely not available till Wednesday. We will continue current care and await results to guide potential immunotherapy. CXR with right upper lobe consolidation, reviewed by pulmonary. Suspected encasement of bronchus/compression by tumor with no role for bronchoscopy. Patient initially on Pleurx 1 L daily with worsening shortness of breath after 12 hours. Did well with gravity drainage, however did have ZEINA and inability to keep up with fluids to this. Pleurx moved to twice daily drainage, will continue this. Patient remains symptomatically improved with this. His EGFF receptor is negative, poor candidate for other treatments which would likely produce significant compromise to his quality of life without good odds of increases in his length of life. - pt was thinking about moving forward with hospice care goals, on meeting with palliative, family, and hospitalist provider 4/5 patient does not want to pursue hospice at this time and would like to try to get stronger or strong enough to consider additional chemotherapeutic options reviewed with case management, who is updating placement options with rehab in mind, prognosis remains guarded. Patient is aware he can transition to hospice at any time including at rehab (2) Metastatic disease: Plan: MRI reviewed with neurology. Multiple lesions noted in the brain bilaterally, consistent with stroke. No evidence of cardiac arrhythmia or neck vessel origin, DDx includes tumor emboli versus hypercoagulability of malignancy Defer full anticoagulation in this patient due to risk of hemorrhage We will continue with 81 mg daily aspirin, prophylactic Lovenox dosing. Consider discontinuing these if decision to transition to hospice is pursued No acute interventions for above, continue treatment of primary malignancy as mentioned above Appreciate care and recommendations (3) Thyroid cancer: Plan: History of thyroid cancer Continue Synthroid 200 mcg (4) ZEINA (acute kidney injury): Plan: Creatinine acutely elevated from baseline of approximately 1.61.75 to 2.32 on 01/09 dynamic to volume status. Remains elevated with poor p.o. intake. Admission patient was on lisinopril, this was previously held for hypotension Patient with mild hypercalcemia previously, additional IV fluids deferred especially with goals of care discussion pending. On family meeting today with palliative care and patient he does not wish to pursue hospice and would like to try to get stronger. With this in mind we will cautiously treat low pressure and tachycardia with small bolus, and repeat BMP. Prognosis extremely guarded. Nephro following. (5) Progressive focal motor weakness: Plan: Brachial plexopathy as above (6) Hyperkalemia: Admission and Anticipated Discharge Date Admission Date: January 04, 2022 Subjective Patient is seen at the bedside with family and palliative care. His brother is present at time of visit. Reports he feels about the same as yesterday, shortness of breath relatively unchanged. In discussing options moving forward patient is aware that his options are poor, and that chemotherapy may worsen his quality of life or shorten his length of life but would like to see if he can get strong enough to try. Does not wish to pursue hospice at this time. Would like to try to get stronger, and is interested in progressive to rehab at this time. Review of Systems Review of Systems: All systems reviewed & are unremarkable except as noted in Subjective Physical Exam Physical Exam: General: Appears ill, frail. Awake, well oriented at time of visit. Alert. HEENT: Atraumatic, normocephalic. Vision and hearing grossly intact. Mucous membranes tacky/dry. Pulm: r Pleurx in place. Scattered inspiratory wheezes, greatly diminished on the right, coarse bilaterally R>L Cardiac: Regular, tachycardic, -mrg. Radial pulses intact and symmetrical. Abdominal: Nontender, nondistended, soft. BS present. Extremities: Right upper extremity weakness with decreased sensation to soft touch compared to the left persists. Tenderness is worse in the right arm proximally today, left arm does again feel more weak than 2 days ago and has difficulty with abduction at the shoulder against gravity. Results & Data Results & Data ([facility]) Vital Signs (Past 12 Hours) Vital Signs Temp Pulse Pulse Resp BP BP Pulse Ox 01/13/22 07:51 36.5 C 107 H 16 84/53 L 98 01/13/22 07:18 103 H 01/13/22 04:12 36.5 C 102 H 16 100/63 96 PG Care Time/CCT Total # of Minutes Spent Total Time Spent with Patient: Total time spent is greater than 50% in coordination of care (as documented) at patient's floor/unit and/or counseling patient: Coding Level of Care Code 89510 Subseq Hosp Care Lvl 2 Diagnoses Lung cancer C34.90 Laterality: unspecified laterality Lung location: unspecified part of lung Metastatic disease C79.51 Area of secondary neoplastic involvement: bone Thyroid cancer C73 ZEINA (acute kidney injury) N17.9 Progressive focal motor weakness R53.1 Hyperkalemia E87.5 (1) Metastatic disease Area of secondary neoplastic involvement: bone Qualified Code(s): C79.51 - Secondary malignant neoplasm of bone (2) Lung cancer Laterality: unspecified laterality Lung location: unspecified part of lung Qualified Code(s): C34.90 - Malignant neoplasm of unspecified part of unspecified bronchus or lung
[2022-01-13] MEDS: LORazepam 2 MG/1 ML VIAL IV PRN (16:25)
[2022-01-13] MEDS ORDERED: SODIUM CHLORIDE 0.9% 1000ML 250 ML IV ONE (17:18)
[2022-01-13] MEDS ORDERED: ALBUMIN 25% 100 mL 25 GM/100 ML VIAL IV ONE (19:30)
[2022-01-13 20:04] LABS: Basophils # (auto) 0.02 K/uL (0-0.2); Basophils % (auto) 0.1 %; Eosinophils # (auto) 0.07 K/uL (0-0.5); Eosinophils % (auto) 0.4 %; Hematocrit (blood only) 23.9 % (42-52); Hemoglobin 7.7 g/dL (14.0-18.0); Immature Granulocytes # (auto) 0.22 K/uL (0.00-0.02); Immature Granulocytes % (auto) 1.4 %; Lymphocytes # (auto) 1.02 K/uL (1.2-3.4); Lymphocytes % (auto) 6.5 %; Mean Corpuscular Hemoglobin 29.3 pg (25-34); Mean Corpuscular Hgb Conc 32.2 g/dL (32-36); Mean Corpuscular Volume 90.9 fL (80-100); Mean Platelet Volume 8.7 fL (7.4-10.4); Monocytes # (auto) 1.38 K/uL (0.11-0.59); Monocytes % (auto) 8.8 %; Neutrophils # (auto) 12.99 K/uL (1.4-6.5); Neutrophils % (auto) 82.8 %; Platelet Count 549 K/uL (130-400); RDW Coefficient of Variation 13.3 % (11.5-14.5); RDW Standard Deviation 43.3 fL (36.4-46.3); Red Blood Count 2.63 M/uL (4.7-6.1)
[2022-01-13 20:18] LABS: BUN Creatinine Ratio 24.4 (10-20); Calcium 10.2 mg/dl (8.5-10.1); Creatinine Clr Calc Pharmacy 27.3 ml/min; Est GFR (African American) 28.7 ml/min; Est GFR (Non-African American) 24.8 ml/min; Potassium 5.3 mmol/L (3.5-5.1)
[2022-01-13 20:31] LABS: Echinocytes 1+; Howell-Jolly Bodies 1+
[2022-01-13] MEDS ORDERED: SODIUM CHLORIDE 0.9% 250 ML IV PRN (20:58)
[2022-01-13] MEDS ORDERED: PIPERACILLIN/TAZOBACTAM 3.375 GM in DEXTROSE 5% 100 ML IV ONE (21:02)
[2022-01-13] MEDS ORDERED: PIPERACILL/TAZOBAC CONSULT ACTIVE PRN (21:02)
[2022-01-13] MEDS ORDERED: VANCOMYCIN CONSULT ACTIVE PRN (21:02)
[2022-01-13] MEDS ORDERED: VANCOMYCIN HCL 1,000 MG in SODIUM CHLORIDE 0.9% 500 ML IV SCH (21:15)
--- NOTE | 2022-01-13 21:17 | Communication Note ---
Date of Service: January 13, 2022 S: Was alerted by nursing that the patient was persistently hypotensive and unresponsive to fluid boluses. He received a 250 mL bolus without increase in h is pressures. Evaluated the patient and he was somnolent. O: Hypotensive tachycardic sedated Coarse breath sounds bilaterally, regular rhythm, tachycardic, no murmurs rubs or gallops. CBC demonstrating elevated white count to 15.7 and decreasing hemoglobin to 7.7 chemistries similar to previous. A/P: Reviewed case with my attending #Acute anemia: Hemoglobin 7.7 from 9.3 ,likely secondary to Pleurx drainage versus unidentified bleed versus underlying disease. Patient was sedated and unable to make decisions at the time of my arrival. Discussed findings with patient's brother who is at the bedside explaining that his depressed hemoglobin levels and elevated white blood cell count likely were responsible for his worsening hypotension and tachycardia. Although his overall prognosis is poor if the goal is to get the patient to a SNF we can acutely treat these lab abnormalities. Patient's brothers verbalized understanding and requested we transfuse blood and initiate antibiotic therapy. -FOBT ordered -Blood consent obtained -Type and cross -Transfuse 2 units -Follow-up H&H -FOBT ordered #Elevated white count in the setting of tachycardia and hypotension Given these findings strongly suspect infection. -Etiology not clear at present. -Blood cultures obtained -Urine cultures obtained -Follow Up CXR -Consider line infection -Will initiate broad-spectrum coverage with Vanco and Zosyn -Narrow pending culture results #Hypotension & tachycardia: Multifactorial likely secondary to the above, underlying lung cancer, inability to maintain adequate p.o. intake. -Prognosis is guarded
[2022-01-13] MEDS ORDERED: VANCOMYCIN HCL 1,250 MG in SODIUM CHLORIDE 0.9% 250 ML IV ONE (21:30)
[2022-01-13] MEDS: CEFEPIME 2,000 MG in SYRINGE 0 ML IV SCH (22:05)
[2022-01-14] MEDS: LORazepam 2 MG/1 ML VIAL IV PRN ×4 (01:20→20:26)
[2022-01-14] MEDS ORDERED: FUROSEMIDE INJ 20 MG/2 ML VIAL IV ONE (04:30)
[2022-01-14] MEDS: LEVOTHYROXINE SODIUM 200 MCG TABLET PO SCH (05:29)
[2022-01-14] MEDS: ASPIRIN 81 MG CHEW PO SCH (07:49)
[2022-01-14] MEDS: ENOXAPARIN INJ 40 MG/0.4 ML SYR SQ SCH (07:49)
[2022-01-14] MEDS: CHECK fentaNYL PATCH PLACEMENT SCH ×2 (07:50→15:11)
[2022-01-14 07:55] LABS: BUN Creatinine Ratio 25.5 (10-20); Calcium 10.5 mg/dl (8.5-10.1); Est GFR (African American) 25.9 ml/min; Est GFR (Non-African American) 22.3 ml/min; Potassium 5.3 mmol/L (3.5-5.1)
[2022-01-14] MEDS: POLYETHYLENE (MIRALAX) 17 GM PACK PO SCH (08:12)
[2022-01-14] MEDS ORDERED: ALBUMIN 25% 12.5 GM/50 ML VIAL IV ONE (08:14)
--- NOTE | 2022-01-14 08:14 | XRay Report ---
SINGLE VIEW CHEST CLINICAL HISTORY: Leukocytosis. FINDINGS: An AP, portable, supine chest radiograph is compared to study dated 01/12/2022 and correlated with chest CT dated 01/04/2022. The cardiomediastinal silhouette is unremarkable. There is increasing ly confluent consolidation throughout the right lung and this is greatest in the mid to upper lung) a s compared to previous. Patchy nodular airspace opacities are seen throughout the left lung. There is a small persistent right pleural effusion. A pleural drain is again seen on the right. No pneumothor ax is seen. Destructive change involving the right upper ribs was better seen on the recent CT scan. IMPRESSION: 1. There is increasingly confluent airspace opacification throughout the right lung, likely represent ing tumor and pneumonia. Clinical correlation will be required. 2. Patchy/nodular airspace opacities are again seen throughout the left lung. 3. There is a small persistent right pleural effusion with a right pleural drain in place. ACT 112: Negative or not required by law. Electronically signed by: Matthew Reinoso M.D. 01/14/2022 8:13 AM
[2022-01-14] MEDS ORDERED: SODIUM CHLORIDE 0.9% 1000ML 250 ML IV ONE (09:08)
[2022-01-14] MEDS: oxyCODONE HCL IR 5 MG TAB (IMMEDIATE RELEASE) PO PRN ×2 (11:07→22:40)
[2022-01-14 11:14] LABS: Hematocrit (blood only) 28.9 % (42-52); Hemoglobin 9.4 g/dL (14.0-18.0); Mean Corpuscular Hemoglobin 29.9 pg (25-34); Mean Corpuscular Hgb Conc 32.5 g/dL (32-36); Mean Platelet Volume 8.7 fL (7.4-10.4); Nucleated RBC # (auto) 0.03 K/uL (0-0); Nucleated RBC % (auto) 0.1 %; Platelet Count 486 K/uL (130-400); RDW Coefficient of Variation 13.5 % (11.5-14.5); RDW Standard Deviation 44.6 fL (36.4-46.3); Red Blood Count 3.14 M/uL (4.7-6.1); White Blood Count 17.21 K/uL (4.8-10.8)
--- NOTE | 2022-01-14 11:36 | Palliative Care Progress Note ---
Date of Service January 14, 2022 Assessment & Plan (1) Generalized pain: Plan: continue fentanyl patch with prn oxycodone. He does appear comfortable today and family concurs. (2) Anxiety: Plan: Continue lorazepam prn for restlessness and agitation. This may be terminal delirium which I discussed with his sister. Goal at this time remains continue current level of care with hope for rehab and possible treatment as expressed by Demarcus and family. Admission and Anticipated Discharge Date Admission Date: January 04, 2022 Subjective Lethargic but arousable. Last night was found to have hemoglobin 7.7 with lethargy and hypotension. Did receive transfusion. Labs pending. No prn oxycodone other than premedication for radiation treatment. Review of Systems Review of Systems: Unobtainable due to reduced consciousness Physical Exam Constitutional: + lethargic Respiratory: normal respiratory effort; no labored breathing Neurologic: right arm flaccid Results & Data ([facility]) Vital Signs (Past 12 Hours) Vital Signs Temp Pulse Pulse Resp BP BP BP 01/14/22 11:03 98.1 F 105 H 24 72/44 L 01/14/22 10:29 93 H 24 01/14/22 07:30 97.3 F L 102 H 20 70/48 L 01/14/22 07:08 102 H 01/14/22 04:32 98.2 F 116 H 24 142/110 H 01/14/22 04:00 97.9 F 115 H 28 H 110/60 01/14/22 03:30 97.7 F 110 H 28 H 103/56 L 01/14/22 03:15 97.5 F L 106 H 20 101/69 01/14/22 02:50 98.6 F 114 H 20 115/63 01/14/22 02:30 99.3 F 112 H 20 113/78 01/14/22 01:30 97.5 F L 130 H 28 H 120/81 01/14/22 00:30 98.2 F 91 H 16 104/67 01/14/22 00:00 98.4 F 91 H 18 99/64 L 01/13/22 23:30 98.1 F 96 H 18 91/60 L Pulse Ox Pulse Ox 01/14/22 11:03 94 01/14/22 10:29 97 01/14/22 07:30 99 01/14/22 07:08 01/14/22 04:32 97 01/14/22 04:00 96 01/14/22 03:30 93 01/14/22 03:15 96 01/14/22 02:50 99 01/14/22 02:30 96 01/14/22 01:30 96 01/14/22 00:30 98 01/14/22 00:00 98 01/13/22 23:30 98 PG Care Time/CCT Total # of Minutes Spent Total Time Spent with Patient: Total time spent is greater than 50% in coordination of care (as documented) at patient's floor/unit and/or counseling patient: Coding Level of Care Code 33134 Subseq Hosp Care Lvl 2 Diagnoses Generalized pain R52 Anxiety F41.9
--- NOTE | 2022-01-14 12:05 | Nephrology Progress Note ---
Date of Service January 14, 2022 Assessment & Plan (1) ZEINA (acute kidney injury): (2) Hyperkalemia: (3) Hyponatremia: (4) Pleural effusion, malignant: (5) Right arm weakness: Plan: 61 y o m with stage III B CKD baseline creatinine 1.6-1.8, admitted with shortness of breath with bilateral pleural effusion in the setting of recent diagnosis of metastatic small-cell lung carcinoma. Developed ZEINA with decreased p.o. intake and high pleural drainage and overall net negative. EGFF receptor was negative, leaning toward hospice care, waiting on family meeting this morning. Renal function continues to worsen with multiple electrolyte abnormality, persistent hypotension. -- consider maintenance IV fluid as p.o. intake remains poor. overall prognosis remains guarded. will follow Admission and Anticipated Discharge Date Admission Date: January 04, 2022 Phuong Tracy was seen this morning with his significant other and sister at bedside. He was lethargic, somewhat somnolent and rest less. blood pressure remained low Physical Exam Constitutional: + ill appearing and + lethargic restless, somnolent Respiratory: no respiratory distress Results & Data ([facility]) Vital Signs (Past 12 Hours) Vital Signs Temp Pulse Pulse Resp BP BP BP 01/14/22 11:03 36.7 C 105 H 24 72/44 L 01/14/22 10:29 93 H 24 01/14/22 07:30 36.3 C L 102 H 20 70/48 L 01/14/22 07:08 102 H 01/14/22 04:32 36.8 C 116 H 24 142/110 H 01/14/22 04:00 36.6 C 115 H 28 H 110/60 01/14/22 03:30 36.5 C 110 H 28 H 103/56 L 01/14/22 03:15 36.4 C L 106 H 20 101/69 01/14/22 02:50 37.0 C 114 H 20 115/63 01/14/22 02:30 37.4 C 112 H 20 113/78 01/14/22 01:30 36.4 C L 130 H 28 H 120/81 01/14/22 00:30 36.8 C 91 H 16 104/67 Pulse Ox Pulse Ox 01/14/22 11:03 94 01/14/22 10:29 97 01/14/22 07:30 99 01/14/22 07:08 01/14/22 04:32 97 01/14/22 04:00 96 01/14/22 03:30 93 01/14/22 03:15 96 01/14/22 02:50 99 01/14/22 02:30 96 01/14/22 01:30 96 01/14/22 00:30 98 PG Care Time/CCT Total # of Minutes Spent Total Time Spent with Patient: Total time spent is greater than 50% in coordination of care (as documented) at patient's floor/unit and/or counseling patient: Coding Level of Care Code 38792 Subseq Hosp Care Lvl 2 Diagnoses ZEINA (acute kidney injury) N17.9 Hyperkalemia E87.5 Hyponatremia E87.1 Pleural effusion, malignant J91.0 Right arm weakness R29.898
--- NOTE | 2022-01-14 12:17 | Pharmacy Report ---
Pharmacy [facility] Short Note - Date of Service January 14, 2022 - Assessment & Plan Assessment 61 year old M started on vancomycin/cefepime empirically due to hypotension/tachycardia and concern for infection with elevated WBC count. Patient with non-small cell lung cancer, metastatic carcinoma, malignant pleural effusion. Plan Vancomycin * Patient received loading dose of vancomycin last evening of 1250 mg x 1 * Random vancomycin level ordered this morning - resulted at ~13.6 mcg/ml - plan to now redose vancomycin to maintain levels ~15-20 mcg/ml * Will give vancomycin 750 mg x 1. Scr continues to trend up since yesterday therefore will continue to dose by levels * Random level ordered for tomorrow AM to assist in further dosing Pharmacy will continue to follow and will adjust dose/frequency as necessary. Thank you.
[2022-01-14] MEDS ORDERED: VANCOMYCIN HCL 750 MG in SODIUM CHLORIDE 0.9% 250 ML IV ONE (12:30)
--- NOTE | 2022-01-14 16:07 | Hospitalist Progress Note ---
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 Discussed with patient and family, patient is weak and does not have 24-hour care at home, lives alone. Will need placement. Discussed with case management Patient and family have agreed to CODE STATUS, DNR/DNI at this time Patient did have improvement with daily removal of fluid, this benefit tended to diminish starting around 12 hours and is again increasingly short of breath which improves at next removal. Patient requested increased frequency for comfort Discussed with pulm, placed to waterseal with Ping kit. Continuing to pursue placement at [facility], EGF receptor negative illuminates immunotherapy for treatment options completed radiation therapy CXR with right upper lobe consolidation, reviewed by pulmonary. Suspected encasement of bronchus/compression by tumor with no role for bronchoscopy. - pt was thinking about moving forward with hospice care goals, on meeting with palliative, family, and hospitalist provider 4/5 patient does not want to pursue hospice at this time and would like to try to get stronger or strong enough to consider additional chemotherapeutic options reviewed with case management, who is updating placement options with rehab in mind, prognosis remains guarded. Patient is aware he can transition to hospice at any time including at rehab (2) Metastatic disease: Plan: MRI reviewed with neurology. Multiple lesions noted in the brain bilaterally, consistent with stroke. No evidence of cardiac arrhythmia or neck vessel origin, DDx includes tumor emboli versus hypercoagulability of malignancy Defer full anticoagulation in this patient due to risk of hemorrhage We will continue with 81 mg daily aspirin, prophylactic Lovenox dosing. (3) Thyroid cancer: Plan: History of thyroid cancer Continue Synthroid 200 mcg (4) ZEINA (acute kidney injury): Plan: Patient is ZEINA from volume shifts after Pleurx catheter drainage. He also was on an MAYLIN inhibitor. Patient is sensitive to volume loss and also his respiratory status declines with excess volume so with his ZEINA small volumes are recommended however with his lethargy confusion and overall decline his p.o. 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 Head exam is normocephalic atraumatic Neck is without JVD, thyromegaly, or carotid bruits. Lungs absent breath sounds on the right coarse crackles on the left Cardiac exam, Rhythm is regular.. No murmurs, rubs or gallops. Abdominal exam reveals normal bowel sounds, soft non tender, Extremities are trace to 1+ edema Neurologic exam is alert but does not follow commands only to move his left arm his right arm is paralyzed from his brachial plexus encroachment of his tumor Results & Data Results & Data ([facility]) Vital Signs (Past 12 Hours) Vital Signs Temp Pulse Pulse Resp BP BP BP 01/14/22 15:19 97.5 F L 115 H 30 H 104/65 01/14/22 11:03 98.1 F 105 H 24 72/44 L 01/14/22 10:29 93 H 24 01/14/22 07:30 97.3 F L 102 H 20 70/48 L 01/14/22 07:08 102 H 01/14/22 04:32 98.2 F 116 H 24 142/110 H 01/14/22 04:00 97.9 F 115 H 28 H 110/60 Pulse Ox Pulse Ox 01/14/22 15:19 91 01/14/22 11:03 94 01/14/22 10:29 97 01/14/22 07:30 99 01/14/22 07:08 01/14/22 04:32 97 01/14/22 04:00 96 PG Care Time/CCT Total # of Minutes Spent Total Time Spent with Patient: Total time spent is greater than 50% in coordination of care (as documented) at patient's floor/unit and/or counseling patient: Coding Level of Care Code 32073 Subseq Hosp Care Lvl 3 Diagnoses Lung cancer C34.90 Laterality: unspecified laterality Lung location: unspecified part of lung Metastatic disease C79.51 Area of secondary neoplastic involvement: bone Thyroid cancer C73 ZEINA (acute kidney injury) N17.9 Progressive focal motor weakness R53.1 Hyperkalemia E87.5 (1) Lung cancer Laterality: unspecified laterality Lung location: unspecified part of lung Qualified Code(s): C34.90 - Malignant neoplasm of unspecified part of unspecified bronchus or lung (2) Metastatic disease Area of secondary neoplastic involvement: bone Qualified Code(s): C79.51 - Secondary malignant neoplasm of bone
[2022-01-14] MEDS ORDERED: SCOPOLAMINE 1 MG TDSY TD SCH (17:00)
[2022-01-14] MEDS: ATROPINE SULFATE 1% OP SOLN 5 ML BTL PO PRN (17:48)
[2022-01-14] MEDS: CEFEPIME 2,000 MG in SYRINGE 0 ML IV SCH (21:04)
[2022-01-15] MEDS: CHECK SCOPOLAMINE PATCH PLACEMENT SCH ×3 (00:08→15:18)
[2022-01-15] MEDS: CHECK fentaNYL PATCH PLACEMENT SCH ×3 (00:08→15:18)
[2022-01-15] MEDS: LORazepam 2 MG/1 ML VIAL IV PRN ×5 (00:19→19:39)
[2022-01-15] MEDS: LEVOTHYROXINE SODIUM 200 MCG TABLET PO SCH (05:22)
[2022-01-15 06:37] LABS: Creatinine Clr Calc Pharmacy 25.8 ml/min; Est GFR (African American) 26.9 ml/min; Est GFR (Non-African American) 23.2 ml/min
[2022-01-15] MEDS: ASPIRIN 81 MG CHEW PO SCH (08:43)
[2022-01-15] MEDS: POLYETHYLENE (MIRALAX) 17 GM PACK PO SCH (08:47)
--- NOTE | 2022-01-15 08:48 | Pharmacy Report ---
Pharmacy [facility] Short Note - Date of Service January 15, 2022 - Assessment & Plan Assessment 61 year old M started on vancomycin/cefepime empirically due to hypotension/tachycardia and concern for infection with elevated WBC count. Patient with non-small cell lung cancer, metastatic carcinoma, malignant pleural effusion. Plan Vancomycin * Random vancomycin level this AM therapeutic at ~16.7 mcg/ml (goal 15-20 mcg/ml) * Scr remains similar from yesterday, from 2.9 to 2.8 mg/dL * Will repeat with vancomycin 750 mg x 1 to maintain levels ~15-20 mcg/ml * Order to time out as ordered only x 48 hrs, will followup with provider if wanting ongoing * Will order another random in the AM to assist with further dosing if continued Pharmacy will continue to follow and will adjust dose/frequency as necessary. Thank you.
[2022-01-15] MEDS ORDERED: ENOXAPARIN INJ 30 MG/0.3 ML SYR SQ SCH (09:00)
--- NOTE | 2022-01-15 09:29 | Nephrology Progress Note ---
Date of Service January 15, 2022 Assessment & Plan (1) ZEINA (acute kidney injury): (2) Hyperkalemia: (3) Hyponatremia: (4) Pleural effusion, malignant: (5) Right arm weakness: Plan: 61 y o m with stage III B CKD baseline creatinine 1.6-1.8, admitted with shortness of breath with bilateral pleural effusion in the setting of recent diagnosis of metastatic small-cell lung carcinoma. Developed ZEINA with decreased p.o. intake and high pleural drainage and overall net negative. EGFF receptor was negative, leaning toward hospice care, waiting on discharge arrangements. Had 5 RT. Renal function continues to worsen with multiple electrolyte abnormality, persistent hypotension. -- consider maintenance IV fluid as p.o. intake remains poor. overall prognosis remains guarded. -- suggest stopping blood work and focus on comfort while waiting on discharge arrangements. will follow Admission and Anticipated Discharge Date Admission Date: January 04, 2022 Phuong Tracy was seen this morning with his significant other and sister at bedside. He was awake but confused and rest less. blood pressure remained low. No significant po intake. Having increased work of breathing. Review of Systems Review of Systems: Detail ROS was not possible due to pts condition. Physical Exam Constitutional: + ill appearing and + lethargic restless Respiratory: + respiratory distress Results & Data ([facility]) Vital Signs (Past 12 Hours) Vital Signs Temp Pulse Pulse Resp BP BP Pulse Ox 01/15/22 07:14 95 H 01/15/22 04:16 36.5 C 97 H 18 93/54 L 94 01/15/22 00:45 98 H 01/14/22 22:46 36.8 C 113 H 28 H 111/64 97 PG Care Time/CCT Total # of Minutes Spent Total Time Spent with Patient: Total time spent is greater than 50% in coordination of care (as documented) at patient's floor/unit and/or counseling patient: Coding Level of Care Code 41818 Subseq Hosp Care Lvl 2 Diagnoses ZEINA (acute kidney injury) N17.9 Hyperkalemia E87.5 Hyponatremia E87.1 Pleural effusion, malignant J91.0 Right arm weakness R29.898
[2022-01-15] MEDS: ATROPINE SULFATE 1% OP SOLN 5 ML BTL PO PRN ×2 (09:58→19:44)
[2022-01-15] MEDS ORDERED: VANCOMYCIN HCL 750 MG in SODIUM CHLORIDE 0.9% 250 ML IV ONE (10:00)
[2022-01-15] MEDS ORDERED: MoRPHine SULFATE 2 MG/ML CARP IV PRN (12:02)
[2022-01-15] MEDS ORDERED: GLYCOPYRROLATE 0.2 MG/ML VIAL IV PRN (12:59)
--- NOTE | 2022-01-15 13:03 | Palliative Care Progress Note ---
Date of Service January 15, 2022 Assessment & Plan (1) Palliative care encounter: Plan: Met with patient, along with his sister, and brother (POA) Corrine at the bedside. Both of them have met with Dr. Evans earlier this morning to discuss the hospital trajectory and the details of his admission, and the unfortunate decline that we are witnessing. I spoke separately with the patients sister and asked some specific questions. She said that her brothers are quite close, but have talked amongst themselves and know that he is declining and, of course, would not want him to suffer or struggling during his end of life process. A few hours later I returned to the room and was able to talk in depth with Corrine. He recognizes his decline and was clear it is quite hard to see his brother in his current state. He has spoken with his brother before to confirm he was not fearful of his dying time; but Corrine is taking these decisions quite hard as things are progressing quite rapidly. I explained that his lack of appetite, poor PO intake, terminal agitation/restlessness, increased use of diaphragmatic and accessory muscle use for breathing, audible secretions, etc. were reflective of his body naturally entering the dying phase of his life. Even over the past few hours, I have noticed a decline. I was clear with both family members that if there was anyone they would like to be present as he dies, to call them to come into the hospital. I would not be surprised if he passed over the next day or two. I did set the families expectation that his dying time and life expectancy is likely in the next hours to day or two. Discussed full transition to comfort measures only. Patients brother is having a hard time with this transition and has his own medical issues himself. The patient has been agitated with blood pressures, AM lab draws, etc. Family ok with discontinuing routine medications and vitals/labs. Family would like to remain in current room if possible. Bereavement cart ordered, along with food for the patients brother. (2) Generalized pain: Plan: Pt remains on Fentanyl patch; unlikely benefiting him at this point. Discussed not initiating new Fentanyl patch with next patch placement. Patient now with tachycardia and dyspnea. Appears patient is entering the dying phase of life. Also has Roxicodone 10 mg PO Q4 PRN and has taken two doses over the past 24 hours; however, shifting to a more [employer] approach and will focus on Morphine administration and DC the Roxicodone. Dr. Evans discussed with family and IV Morphine added to the regimen. He has received one dose and this has helped. I adjusted the frequency to Morphine 2 mg IV Q3 PRN. I discussed with nursing that I have a low threshold of administration of Morphine for this patient. Should the patient require increased frequency, discussed possibility of Morphine gtt. Suggest proceeding gently/cautiously regarding a drip as his brother has needed to process this all quite rapidly. (3) Terminal respiratory secretions: Plan: Pt has Atropine gtts and has received two doses over the last 24 hours. Added scheduled Robinul to his regiment for auditory terminal secretions. Also has a Scope patch in place. I witnessed patient attempt to drink water through a straw for which he coughed a lot. I showed family how to give mouth swabs to prevent dry mucus membranes with anticholinergic use. (4) Agitation: Plan: Terminal agitation as noted by restlessness and hallucinatory effects. patient without focused/fixed gaze. Picking at the ceiling, throwing his limb over the side of the bedrail. Patient communicating but not with meaningful interaction. Patient has Ativan 0.5 mg IV Q4 PRN. Received a dose when I was with the patient and it did help. I set expectation that my goal is to have the patient be as awake, alert and interactive as possible; however, due to his terminal agitation, may require an overall sedative approach with medications. Will see how he responds to the meds ordered. Will also order Zyprexa 2.5mg Q6 PRN for agitation. Admission and Anticipated Discharge Date Admission Date: January 04, 2022 Subjective I was able to see the patient today. His sister and brother were both at his bedside. Earlier today, the patient was experiencing dyspnea and restlessness with some auditory secretions. I saw the patient a few days ago, it is quite evident that he has declined since our last encounter with terminal agitation. The hospitalist, Dr. Evans visited prior to my arrival. Please see A/P for further details. Review of Systems Review of Systems: [place] Symptom Assessment Scale Denies pain despite pain behaviors Anxiety 2/3 Fatigue 2/3 Drowsiness 0/3 SOB: 2/3 Palliative Performance Score 20% Physical Exam Constitutional: + frail appearing and + in distress ENMT: Mouth: + dry oral mucous membranes Respiratory: + labored breathing and + cough Auscultation: + diminished lung sounds and + rhonchi Cardiovascular: Rate/Rhythm: + tachycardic Heart Sounds: normal S1 and normal S2 Extremities: normal capillary refill Gastrointestinal (Abdomen): Inspection/Auscultation: abdomen normal to inspection and normal bowel sounds Skin: + pallor Neurologic: Motor/Sensory: + abnormal movement (right arm flacid to 1/5) Psychiatric: Orientation: alert Insight: + poor insight Results & Data ([facility]) Vital Signs (Past 12 Hours) Vital Signs Temp Pulse Pulse Resp BP Pulse Ox 01/15/22 08:30 37 C 99 H 22 103/70 90 01/15/22 07:14 95 H 01/15/22 04:16 36.5 C 97 H 18 93/54 L 94 PG Care Time/CCT Total # of Minutes Spent Total Time Spent with Patient: Total time spent is greater than 50% in coordination of care (as documented) at patient's floor/unit and/or counseling patient: 65 minutes Coding Level of Care Code 67130 Subseq Hosp Care Lvl 3 Diagnoses Generalized pain R52 Palliative care encounter Z51.5 Terminal respiratory secretions R09.89 Agitation R45.1 Time Spent (min) 65
[2022-01-15] MEDS ORDERED: GLYCOPYRROLATE 1 MG TAB PO SCH (14:00)
[2022-01-15] MEDS: fentaNYL 50 MCG/HR TDSY TD SCH (14:15)
[2022-01-15] MEDS: MoRPHine SULFATE 2 MG/ML CARP IV PRN ×2 (15:40→18:34)
--- NOTE | 2022-01-15 16:47 | Hospitalist Progress Note ---
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 Discussed with patient and family,CODE STATUS, DNR/DNI at this time Continuing to pursue placement at [facility], EGF receptor negative illuminates immunotherapy for treatment options completed radiation therapy Patient likely will not survive to be discharged to nursing home facility at this time family is at the bedside and we are keeping hickey (3) Metastatic disease: Plan: MRI reviewed with neurology. Multiple lesions noted in the brain bilaterally, consistent with stroke. No evidence of cardiac arrhythmia or neck vessel origin, DDx includes tumor emboli versus hypercoagulability of malignancy Defer full anticoagulation in this patient due to risk of hemorrhage (4) Thyroid cancer: Plan: History of thyroid cancer Previously on Synthroid 200 mcg (5) ZEINA (acute kidney injury): Plan: Patient is ZEINA from volume shifts after Pleurx catheter drainage. He also was on an MAYLIN inhibitor. Patient is sensitive to volume loss and also his respiratory status declines with excess volume so with his ZEINA small volumes are recommended however with his lethargy confusion and overall decline his p.o. 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 It is my concern that the patient is entering active phase of dying and likely will not live more than 1 to 3 days. Getting morphine Ativan although with some space in the urine dosing schedule Review of Systems Review of Systems: Unobtainable due to cognitive status Patient is in respiratory distress he is diaphoretic he has gurgling respirations Physical Exam Physical Exam: The patient appeared in significant respiratory distress with sarcopenia and advancement towards dying process Vital signs as documented. Lungs are coarse rhonchi in all lung woo gurgling respirations above Cardiac exam, tachycardic Neurologic exam is confused and conscious, hallucinating Results & Data Results & Data ([facility]) Vital Signs (Past 12 Hours) Vital Signs Temp Pulse Pulse Resp BP BP Pulse Ox 01/15/22 15:58 97 H 01/15/22 15:24 98.4 F 94 H 20 98/65 L 96 01/15/22 12:15 99.0 F 98 H 22 98/68 L 91 01/15/22 08:30 98.6 F 99 H 22 103/70 90 01/15/22 07:14 95 H PG Care Time/CCT Total # of Minutes Spent Total Time Spent with Patient: Total time spent is greater than 50% in coordination of care (as documented) at patient's floor/unit and/or counseling patient: Coding Level of Care Code 21716 Subseq Hosp Care Lvl 2 Diagnoses Lung cancer C34.90 Laterality: unspecified laterality Lung location: unspecified part of lung Metastatic disease C79.51 Area of secondary neoplastic involvement: bone Thyroid cancer C73 ZEINA (acute kidney injury) N17.9 Progressive focal motor weakness R53.1 Hyperkalemia E87.5 End of life care Z51.5 (1) Lung cancer Laterality: unspecified laterality Lung location: unspecified part of lung Qualified Code(s): C34.90 - Malignant neoplasm of unspecified part of unspecified bronchus or lung (2) Metastatic disease Area of secondary neoplastic involvement: bone Qualified Code(s): C79.51 - S econdary malignant neoplasm of bone
[2022-01-15] MEDS: GLYCOPYRROLATE 0.2 MG/ML VIAL IV SCH (22:15)
[2022-01-16] MEDS: MoRPHine SULFATE 2 MG/ML CARP IV PRN ×4 (01:19→10:09)
[2022-01-16] MEDS: CHECK fentaNYL PATCH PLACEMENT SCH ×3 (01:38→16:10)
[2022-01-16] MEDS: LORazepam 2 MG/1 ML VIAL IV PRN ×5 (04:56→22:01)
[2022-01-16] MEDS: GLYCOPYRROLATE 0.2 MG/ML VIAL IV SCH ×4 (05:48→19:32)
[2022-01-16] MEDS: CHECK SCOPOLAMINE PATCH PLACEMENT SCH ×2 (07:37)
[2022-01-16] MEDS: HYDROmorphone INJ 0.5 MG/0.5 ML SYR IV PRN ×5 (11:42→22:15)
--- NOTE | 2022-01-16 12:44 | Palliative Care Progress Note ---
Date of Service January 16, 2022 Assessment & Plan (1) Generalized pain: Plan: On fentanyl patch with parenteral morphine. Given GFR of 22, and delirium, will rotate to hydromorphone for prn use. Per RN, he was uncomfortable with thoracentesis earlier. Discussed premedication prior to drainage. I did talk with Corrine about opioid infusion. He does not want to do that at this time because he has periods where he is able to communicate with Demarcus and Demarcus has been discussing unfinished business with him. He wants to maintain communication as long as possible. (2) Terminal respiratory secretions: Plan: On multiple medications (scopolamine, atropine and glycopyrrolate). Given delirium, would will stop scopolamine and atropine. Increase dose and frequency for glycopyrrolate which does not cross blood brain barrier. (3) Agitation: Plan: Terminal delirium. Med adjustments as above. Lorazepam available prn. Discussed with RN. (4) Palliative care encounter: Plan: I talked with Corrine at bedside. He is still having a difficult time processing the fact that Demarcus is dying. He is tearful and expresses concern about what he will do without his brother. They have been very close. Corrine has been very attentive and supportive with Demarcus. Discussed how important his support has been. Admission and Anticipated Discharge Date Admission Date: January 04, 2022 Subjective Lethargic. Responds to some questions. Shakes his head no when asked if having pain but grimaces with movement. Picking at air, pulling up legs, swinging legs out of bed. Review of Systems Review of Systems: Unobtainable due to cognitive status [place] Symptom Assessment Scale Pain 1/3 Dyspnea 0/3 Fatigue 2/3 Drowsiness 1/3 Palliative Performance Score 30% Physical Exam Constitutional: + ill appearing Respiratory: normal respiratory effort; no labored breathing audible rhonchi Cardiovascular: Extremities: no edema no mottling Musculoskeletal: Extremities: + muscle atrophy Neurologic: + confused RUE flaccid Results & Data ([facility]) Vital Signs (Past 12 Hours) Vital Signs Temp Pulse Pulse Resp BP Pulse Ox 01/16/22 07:46 97.2 F L 100 H 28 H 99/68 L 94 01/16/22 07:29 95 H 01/16/22 05:23 113 H 01/16/22 01:22 26 H PG Care Time/CCT Total # of Minutes Spent Total Time Spent: 40 Total Time Spent with Patient: Total time spent is greater than 50% in coordination of care (as documented) at patient's floor/unit and/or counseling patient:symptom management, family education and support, coordination of care Coding Level of Care Code 69364 Subseq Hosp Care Lvl 3 Diagnoses Generalized pain R52 Terminal respiratory secretions R09.89 Agitation R45.1 Palliative care encounter Z51.5
--- NOTE | 2022-01-16 17:42 | Hospitalist Progress Note ---
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 Discussed with patient and family,CODE STATUS, DNR/DNI at this time Continuing to pursue placement at [facility], EGF receptor negative illuminates immunotherapy for treatment options completed radiation therapy Patient likely will not survive to be discharged to long term facility at this time family is at the bedside and we are keeping hickey (3) Metastatic disease: Plan: MRI reviewed with neurology. Multiple lesions noted in the brain bilaterally, consistent with stroke. No evidence of cardiac arrhythmia or neck vessel origi n, DDx includes tumor emboli versus hypercoagulability of malignancy Defer full anticoagulation in this patient due to risk of hemorrhage (4) Thyroid cancer: Plan: History of thyroid cancer Previously on Synthroid 200 mcg (5) ZEINA (acute kidney injury): Plan: Patient is ZEINA from volume shifts after Pleurx catheter drainage. He also was on an MAYLIN inhibitor. Patient is sensitive to volume loss and also his respiratory status declines with excess volume so with his ZEINA small volumes are recommended however with his lethargy confusion and overall decline his p.o. 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 Responds to some questions. Shakes his head no when asked if having pain but grimaces with movement. Picking at air, pulling up legs, swinging legs out of bed. Review of Systems Review of Systems: Unobtainable due to cognitive status Physical Exam Physical Exam: The patient appeared in significant respiratory distress with sarcopenia and advancement towards dying process Vital signs as documented. Lungs are coarse rhonchi in all lung woo gurgling respirations above Cardiac exam, tachycardic Neurologic exam is confused and conscious, hallucinating Results & Data Results & Data ([facility]) Vital Signs (Past 12 Hours) Vital Signs Temp Pulse Pulse Resp BP Pulse Ox 01/16/22 14:53 104 H 01/16/22 07:46 97.2 F L 100 H 28 H 99/68 L 94 01/16/22 07:29 95 H PG Care Time/CCT Total # of Minutes Spent Total Time Spent with Patient: Total time spent is greater than 50% in coordination of care (as documented) at patient's floor/unit and/or counseling patient: Coding Level of Care Code 25008 Subseq Hosp Care Lvl 2 Diagnoses End of life care Z51.5 Lung cancer C34.90 Laterality: unspecified laterality Lung location: unspecified part of lung Metastatic disease C79.51 Area of secondary neoplastic involvement: bone Thyroid cancer C73 ZEINA (acute kidney injury) N17.9 Progressive focal motor weakness R53.1 Hyperkalemia E87.5 (1) Lung cancer Laterality: unspecified laterality Lung location: unspecified part of lung Qualified Code(s): C34.90 - Malignant neoplasm of unspecified part of unspecified bronchus or lung (2) Metastatic disease Area of secondary neoplastic involvement: bone Qualified Code(s): C79.51 - Secondary malignant neoplasm of bone
[2022-01-17] MEDS: CHECK fentaNYL PATCH PLACEMENT SCH ×2 (00:19→07:10)
[2022-01-17] MEDS: GLYCOPYRROLATE 0.2 MG/ML VIAL IV SCH ×3 (00:19→07:10)
[2022-01-17] MEDS: HYDROmorphone INJ 0.5 MG/0.5 ML SYR IV PRN ×3 (00:20→04:26)
[2022-01-17] MEDS: LORazepam 2 MG/1 ML VIAL IV PRN ×2 (02:14→06:27)
--- NOTE | 2022-01-17 14:10 | Discharge Summary ---
Date of Service January 17, 2022 Admission HPI Per Admitting Provider 61yo M w/ hx of poorly differentiated carcinoma who presents with right arm weakness, chest pain, and shortness of breath. The patient was first diagnosed with cancer in 10/2021 when he started to have right shoulder pain. This was found to be due to tumor involvement in the right brachial plexus/axillary area. Biopsy showed a poorly differentiated carcinoma which is thought to be a lung primary. He has been working up issues with his oncologist, but came in to the ER today for worsening weakness of his right arm and worsening chest pain and shortness of breath. He had a thoracentesis of his right pleural effusion 4 days ago, and his [id number] reports that 1.7L was removed. He reports he has not had much to eat in the last 3-4 days. He has had an unsteady gait more recently. He reports central and right-sided chest pain. He also notes some constipation. He denies any fevers/chills/sweats. He denies nausea/vomiting. Denies any changes in urination (reports going every few hours and that it remains yellow). Principal Diagnosis Patient was pronounced at 0714 a.m. on 01/17/2022 due to acute respiratory failure from metastatic non-small cell lung cancer Discharge Exam Patient was examined without spontaneous heart tones or respirations and pronounced Discharge Data Allergies Allergy/AdvReac Type Severity Reaction Status Date / Time No Known Drug Allergies AdvReac Verified 01/04/22 12:55 Consultations 01/04/22 13:26 ED Decision to Admit Stat 01/04/22 16:06 Consult Nephrology Routine Consult Palliative Care Routine Consult Pulmonology Routine 01/05/22 18:43 Consult Neurology Routine 01/05/22 22:23 Consult Neurology Routine 01/06/22 12:40 Consult Radiation Oncology Routine Ordered Studies 01/04/22 11:57 CT chest diagnostic wo con Stat 01/04/22 16:06 MR brain wo con Routine MR shoulder RT wo con Routine US venous doppler LE BI Routine 01/04/22 16:43 US renal/blad retro comp Routine 01/05/22 09:51 US point of care ultrasound Routine 01/05/22 18:32 Carotid duplex [US carotid doppler BI] Routine 01/06/22 00:43 MR angio head wo con Routine 03/29/22 10:23 MR cervical spine wo/w con Routine 01/06/22 16:03 MRI Brain [MR brain wo/w con] Routine 01/07/22 08:09 CT guide rad therapy neck Routine Hospital Course (1) End of life care: Called by nursing staff with concern for patient having . 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 ,CODE STATUS, DNR/DNI at this time (3) Metastatic disease: MRI reviewed with neurology. Multiple lesions noted in the brain bilaterally, consistent with stroke. 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 (7) Hyperkalemia: Total Time Total Time Spent Total Time Spent (In Minutes): It required greater than 30 minutes to prepare this patient for discharge Discharge Plan Discharge Items Patient Disposition: Discharge Diagnosis: due to respiratory failure from metastatic non small cell lung cancer Other Date/Time: 01/17/22 07:14 Coding Level of Care Code D/C DAY MANAGEMENT >30 MINS Diagnoses End of life care Z51.5 Lung cancer C34.90 Laterality: unspecified laterality Lung location: unspecified part of lung Metastatic disease C79.51 Area of secondary neoplastic involvement: bone Thyroid cancer C73 ZEINA (acute kidney injury) N17.9 Progressive focal motor weakness R53.1 Hyperkalemia E87.5
== END 2022-01-17 14:21 | disposition expired | DRG 180 ==
LOC: ED 10:38 → SUATTDRO 14:15 → 3E 14:15 → 2N 01-05 20:26